=== PATIENT | male | born 1945 | race Caucasian/White ===

== ENCOUNTER 2022-12-11 20:51 | Emergency (ER) | payer OTHER ==
[~2022-12-11] VITALS: Ht 167.6 cm; Wt 58.1 kg
[2022-12-11 20:55] VITALS: BP 155/58
--- NOTE | 2022-12-11 20:55 | NUR ---
TO BED AMBULATORY
--- NOTE | 2022-12-11 21:14 | NUR ---
ASSUMED CARE HERE FR EVAL OF ABDO PAIN NO N/V/D OR CONSTIPATION, HE ALSO C/O NUMBNESS ON BOTH HANDS X1 MON
[2022-12-11 21:53] LABS: BASOPHILS % (AUTO) 0.7 % (0.0-2.0); EOSINOPHILS # (AUTO) 0.1 K/uL (0-0.4); EOSINOPHILS % (AUTO) 5.4 % (0.0-4.0); HEMATOCRIT 29.8 % (36-52); LYMPHOCYTES # (AUTO) 0.9 K/uL (2.0-11.5); LYMPHOCYTES % (AUTO) 38.7 % (20.5-51.1); MEAN CORPUSCULAR HEMOGLOBIN 34 pg (27-31); MEAN CORPUSCULAR HGB CONC 34 g/dL (33-37); MEAN CORPUSCULAR VOLUME 100.4 fL (80-94); MONOCYTES # (AUTO) 0.1 K/uL (0.8-1.0); MONOCYTES % (AUTO) 5.2 % (1.7-9.3); NEUTROPHILS # (AUTO) 1.1 K/uL (1.8-7.7); PLATELET COUNT (AUTO) 46 K/uL (140-450); RED BLOOD CELL COUNT(AUTO) 2.97 MIL/uL (4.20-6.10); RED CELL DISTRIBUTION WIDTH 18.9 % (11.6-13.7); WHITE BLOOD COUNT (AUTO) 2.3 K/uL (4.8-10.8)
[2022-12-11 22:10] LABS: PROTHROMBIN TIME 12.3 secs (10.8-13.4)
[2022-12-11 22:12] LABS: LIPASE 202 U/L (73-393)
[2022-12-11 22:17] LABS: ANION GAP 13.9 (8-16); ASPARTATE AMINOTRANSFERASE 34 U/L (15-37); CARBON DIOXIDE 21.4 mmol/L (21-32); CHLORIDE 107 mmol/L (98-107); CREATININE 1.2 mg/dL (0.6-1.3); GLUCOSE 113 mg/dL (74-106); POTASSIUM 4.3 mmol/L (3.5-5.1); SODIUM SERUM 138 mmol/L (136-145); TOTAL BILIRUBIN 1.1 mg/dL (0.0-1.0); UREA NITROGEN, BLOOD 20 mg/dL (7-18)
[2022-12-11 22:32] LABS: APPEARANCE,URINE CLEAR (CLEAR); BILIRUBIN,URINE NEGATIVE (NEGATIVE); BLOOD, URINE NEGATIVE (NEGATIVE); COLOR,URINE YELLOW (YELLOW); LEUKOCYTE ESTERASE ,URINE NEGATIVE (NEGATIVE); NITRITE, URINE NEGATIVE (NEGATIVE); UGLUCOSE NEGATIVE (NEGATIVE)
[2022-12-11] MEDS ORDERED: MORPHINE SULFATE 4 MG/ML SYR IVP ONE (23:00)
--- NOTE | 2022-12-11 23:17 | NUR ---
C/O ABDO PAIN , PAIN MEDS GHIVEN ORDERED
--- NOTE | 2022-12-11 23:49 | NUR ---
PT BACK FROM CT
--- NOTE | 2022-12-12 02:17 | NUR ---
STILL WAITING FOT CT , RESULT , PT UPDATED
--- NOTE | 2022-12-12 03:53 | NUR ---
AT THE BS TO DISCUSS CT RESULT, PT RETAINING URINE , PT WAS INFORMED HE NEEDED F/C TO DRAIN URINE. F/C PLACED WITH SOME DIFFICULTY POS ENLARGE PROSTATE, URIINE , FLOW BLOODY WITH SOME CLOTS, IRRIGATED WITH 500ML STERILE SALINE , OUT STILL BLOODY, ORDERED TO DCF/C AND REPLACE IT WITH [address] CATH FOR CBI
[2022-12-12] MEDS ORDERED: LIDOCAINE 2% 100 MG/5 ML UJET TP ONE ×2 (04:10→04:14)
--- NOTE | 2022-12-12 04:33 | NUR ---
3 WAY CATH REPLACED , MANUALLY IRRIGATED BLADDER TIL CLEAR, NO CLOTS NOTED.
[2022-12-12 05:18] VITALS: BP 134/63
--- NOTE | 2022-12-12 05:33 | NUR ---
PTS DAUGHTER AT [facility] TO DISCUSS TEST RESULTS AND ACI, F/C CARE INSTRUCTION GIVEN VERB GOOD UNDERSTANDING, F/C CONVERTED TO LEG
--- NOTE | 2022-12-12 05:40 | NUR ---
Patient discharged with v/s stable. Written and verbal after care instructions given and explained. Patient alert, oriented and verbalized understanding of instructions. Wheel Chair Assisted with to car WITH FAMILY. All questions addressed prior to discharge. ID band removed. Patient advised to follow up with PMD. Rx of given. Patient educated on indication of medication including possible reaction and side effects. Opportunity to ask questions provided and answered.
[2022-12-12] MEDS ORDERED: TAMS0.4C96 PO (15:08)
== END 2022-12-12 05:30 | disposition home or self-care (01) ==
LOC: MED 20:51
DX: R10.31 Right lower quadrant pain (principal)
CPT/HCPCS: 36415; 71045; 74177; 80053; 81003; 83690; 83880; 84484; 85025; 85610; 85730; 93005; 96374; 99285; J2270; Q0092; Q9967

== ENCOUNTER 2022-12-12 13:12 | Emergency (ER) | payer OTHER ==
[~2022-12-12] VITALS: Ht 152.4 cm; Wt 69.9 kg
[2022-12-12 14:07] VITALS: BP 142/61
--- NOTE | 2022-12-12 15:00 | NUR ---
LOYA CATHETER CHANGED AFTER BLADDER IRRIGATION.
[2022-12-12] MEDS ORDERED: TAMS0.4C96 PO (15:08)
--- NOTE | 2022-12-12 15:40 | NUR ---
PT JULIANNA RHODES C/O LOYA CATH LEAKING AND BLOODY URINE SINCE THIS AM. NAD.
--- NOTE | 2022-12-12 16:59 | NUR ---
Patient discharged with v/s stable. Written and verbal after care instructions given and explained. Patient alert, oriented and verbalized understanding of instructions. Ambulatory with steady gait. All questions addressed prior to discharge. ID band removed. Patient advised to follow up with PMD. Rx of TAMSULOSIN given. Patient educated on indication of medication including possible reaction and side effects. Opportunity to ask questions provided and answered.
[2022-12-12 17:00] VITALS: BP 138/59
== END 2022-12-12 17:00 | disposition home or self-care (01) ==
LOC: MED 13:12
DX: R31.9 Hematuria, unspecified (principal); R33.9 Retention of urine, unspecified
CPT/HCPCS: 51702; 99284

== ENCOUNTER 2022-12-25 14:49 | Emergency (ER) | payer OTHER ==
[~2022-12-25] VITALS: Ht 167.6 cm; Wt 58.1 kg
[~2022-12-25 14:49] MED LIST: TAMS0.4C96 PO
[2022-12-25 15:02] VITALS: BP 91/41
--- NOTE | 2022-12-25 15:02 | NUR ---
ASSUMED PATIENT CARE, NURSING ASSESSMENT COMPLETED.
[2022-12-25] MEDS ORDERED: [UNRECOGNIZED DRUG - CODE] TP (15:23)
--- NOTE | 2022-12-25 15:33 | NUR ---
Patient discharged with v/s stable. Written and verbal after care instructions given and explained. Patient alert, oriented and verbalized understanding of instructions. Ambulatory with steady gait. All questions addressed prior to discharge. ID band removed. Patient advised to follow up with PMD. Rx of LIDOCAINE CREAM given. Patient educated on indication of medication including possible reaction and side effects. Opportunity to ask questions provided and answered.
[2022-12-25 15:34] VITALS: BP 91/41
[2022-12-28] MEDS ORDERED: [UNRECOGNIZED DRUG - CODE] TP (17:07)
[2022-12-28] MEDS ORDERED: ACET-6951 PO (17:09)
== END 2022-12-25 15:33 | disposition home or self-care (01) ==
LOC: MED 14:49
DX: L29.9 Pruritus, unspecified (principal); R31.9 Hematuria, unspecified; E11.9 Type 2 diabetes mellitus without complications; I10 Essential (primary) hypertension; Z79.899 Other long term (current) drug therapy
CPT/HCPCS: 99283

== ENCOUNTER 2022-12-27 07:42 | Emergency (ER) | payer OTHER ==
[~2022-12-27] VITALS: Ht 167.6 cm; Wt 58.1 kg
[~2022-12-27 07:42] MED LIST changes: +[UNRECOGNIZED DRUG - CODE] TP
[2022-12-27 08:00] VITALS: BP 104/46
--- NOTE | 2022-12-27 08:40 | NUR ---
LOYA CATHETER IRRIGATED WITH 50CC NS. FLOWED WELL, NO RESISTANCE. NO IMMEDIATE URINE FLOW. MD MUNGUIA NOTIFIED. NO BLADDER DISTENTION NOTED. PER MD MUNGUIA, CHANGE LEG BAG ONLY FOR FRESH UA. PT TOLERATED WELL. GIVEN PO FLUIDS PER MD MUNGUIA TO SEE IF PATIENT MAKES URINE. VSS. NAD NOTED. WILL CONT TO MONITOR PT.
[2022-12-27 09:40] LABS: BILIRUBIN,URINE 1+ (NEGATIVE); BLOOD, URINE 3+ (NEGATIVE); LEUKOCYTE ESTERASE ,URINE 1+ (NEGATIVE); NITRITE, URINE POSITIVE (NEGATIVE); UGLUCOSE TRACE (NEGATIVE)
[2022-12-27 09:42] LABS: APPEARANCE,URINE CLOUDY (CLEAR); COLOR,URINE BLOODY (YELLOW)
[2022-12-27 09:53] LABS: RBC,URINE 20-50 /HPF (0-5)
[2022-12-27] MEDS ORDERED: ACET-6951 PO (12:17)
[2022-12-27] MEDS ORDERED: CEFP200T20 PO (12:17)
[2022-12-27 12:35] VITALS: BP 130/76
--- NOTE | 2022-12-27 12:35 | NUR ---
Patient discharged with v/s stable. Written and verbal after care instructions given and explained. Patient alert, oriented and verbalized understanding of instructions. Wheel Chair Assisted with to car. All questions addressed prior to discharge. ID band removed. Patient advised to follow up with PMD. Rx of TYLENOL #3, CEFPODOXIME given. Patient educated on indication of medication including possible reaction and side effects. Opportunity to ask questions provided and answered. LEG BAG EMPTIED, 550CC. PT INSTRUCTED TO DRAIN BAG FREQUENTLY, NO KINKS OR LOOPS IN TUBING AND TO FINISH ABX EVEN IF FEELING BETTER. PT ALSO INSTRUCTED TO DRINK MORE WATER.
[2022-12-28] MEDS ORDERED: [UNRECOGNIZED DRUG - CODE] TP (17:07)
[2022-12-28] MEDS ORDERED: ACET-6951 PO (17:09)
== END 2022-12-27 12:35 | disposition home or self-care (01) ==
LOC: MED 07:42
DX: T83.098A Other mechanical complication of other urinary catheter, initial encounter (principal); N39.0 Urinary tract infection, site not specified; E11.9 Type 2 diabetes mellitus without complications; I10 Essential (primary) hypertension; Z86.39 Personal history of other endocrine, nutritional and metabolic disease; Z79.899 Other long term (current) drug therapy; Y84.6 Urinary catheterization as the cause of abnormal reaction of the patient, or of later complication, without mention of misadventure at the time of the procedure
CPT/HCPCS: 81001; 87086; 99283; 99284

== ENCOUNTER 2022-12-31 19:07 | Inpatient (IN) | payer OTHER ==
[~2022-12-31] VITALS: Ht 167.6 cm; Wt 57.6 kg
[~2022-12-31 19:07] MED LIST changes: +ACET-6951 PO; +CEFP200T20 PO
[2022-12-31 19:48] VITALS: BP 137/70
[2022-12-31] MEDS ORDERED: NACL 0.9% 1,000 ML IV ONE (19:50)
--- NOTE | 2022-12-31 19:51 | NUR ---
PT TO BED 09 VIA W/C
[2022-12-31 20:42] LABS: BASOPHILS % (AUTO) 0.6 % (0.0-2.0); EOSINOPHILS # (AUTO) 0.1 K/uL (0-0.4); EOSINOPHILS % (AUTO) 5.8 % (0.0-4.0); HEMATOCRIT 21.7 % (36-52); HEMOGLOBIN 7.4 g/dL (12.0-18.0); LYMPHOCYTES # (AUTO) 0.7 K/uL (2.0-11.5); LYMPHOCYTES % (AUTO) 35.6 % (20.5-51.1); MEAN CORPUSCULAR HEMOGLOBIN 35 pg (27-31); MEAN CORPUSCULAR HGB CONC 34 g/dL (33-37); MEAN CORPUSCULAR VOLUME 102.6 fL (80-94); MONOCYTES # (AUTO) 0.1 K/uL (0.8-1.0); MONOCYTES % (AUTO) 5.3 % (1.7-9.3); NEUTROPHILS % (AUTO) 52.7 % (42.2-75.2); RED BLOOD CELL COUNT(AUTO) 2.12 MIL/uL (4.20-6.10); RED CELL DISTRIBUTION WIDTH 19.2 % (11.6-13.7)
[2022-12-31 20:52] LABS: PLATELET COUNT (AUTO) 50 K/uL (140-450); WHITE BLOOD COUNT (AUTO) 1.9 K/uL (4.8-10.8)
--- NOTE | 2022-12-31 21:04 | NUR ---
Patient resting in bed, a/Ox4, chest rise and fll symmetrical, no c/o pain or s/s of distress, on monitor.
[2022-12-31 21:07] LABS: ALBUMIN 2.5 g/dL (3.4-5.0); ANION GAP 10.4 (8-16); ASPARTATE AMINOTRANSFERASE 25 U/L (15-37); CARBON DIOXIDE 24.8 mmol/L (21-32); CHLORIDE 101 mmol/L (98-107); CREATININE 1.1 mg/dL (0.6-1.3); GLUCOSE 150 mg/dL (74-106); POTASSIUM 5.2 mmol/L (3.5-5.1); SODIUM SERUM 131 mmol/L (136-145); TOTAL BILIRUBIN 0.4 mg/dL (0.0-1.0); UREA NITROGEN, BLOOD 15 mg/dL (7-18)
--- NOTE | 2022-12-31 22:15 | NUR ---
Blood transfusion 1 unit started. Patient tolerating transfusion well, no c/o pain or s/s of distress or abverse reaction.
--- NOTE | 2022-12-31 22:30 | NUR ---
Patient tolerating transfusion well, no c/o pain or s/s of distress or abverse reaction.
--- NOTE | 2022-12-31 23:00 | NUR ---
Patient resting in bed, a/Ox4, chest rise and fll symmetrical, no c/o pain or s/s of distress, on monitor.
[2022-12-31] MEDS ORDERED: ONDANSETRON 4 MG/2 ML VIAL IM/IVP PRN (23:35)
[2022-12-31] MEDS ORDERED: POTASSIUM CHLORIDE 10 MEQ TABER PO PRN (23:35)
[2022-12-31] MEDS ORDERED: ACETAMINOPHEN 325 MG TAB PO PRN (23:35)
[2022-12-31] MEDS ORDERED: ZOLPIDEM 5 MG TAB PO PRN (23:35)
[2022-12-31] MEDS ORDERED: DOCUSATE SODIUM 100 MG GELCAP PO PRN (23:35)
[2022-12-31] MEDS ORDERED: HYDROcodone/APAP 7.5/325 MG 1 TAB PO PRN (23:35)
[2022-12-31] MEDS ORDERED: guaiFENesin DM 200/20 MG-10 ML 10 ML UDC PO PRN (23:35)
--- NOTE | 2022-12-31 23:43 | NUR ---
Urine emptied from catheter bag, red/clear, 550 mL.
[2023-01-01 00:07] LABS: PROTHROMBIN TIME 10.9 secs (10.8-13.4)
[2023-01-01 00:33] LABS: CHOL/HDL RATIO 3.6 (1-4.5); FREE T4 (FREE THYROXINE) 1.02 ng/dL (0.76-1.46); MAGNESIUM 2.5 mg/dL (1.8-2.4); PHOSPHORUS 3.1 mg/dL (2.5-4.9); THYROID STIMULATING HORMONE 16.47 uIU/mL (0.34-3.74)
--- NOTE | 2023-01-01 01:05 | NUR ---
Blood transfusion completed. Patient tolerated transfusion well, no c/o pain or s/s of distress.
[2023-01-01] MEDS: NACL 0.9% 1,000 ML IV SCH ×2 (01:06→10:23)
--- NOTE | 2023-01-01 01:09 | NUR ---
Patient resting in bed, a/Ox4, chest rise and fll symmetrical, no c/o pain or s/s of distress, on monitor.
[2023-01-01 01:14] LABS: BILIRUBIN,URINE NEGATIVE (NEGATIVE); BLOOD, URINE 3+ (NEGATIVE); LEUKOCYTE ESTERASE ,URINE 1+ (NEGATIVE); NITRITE, URINE NEGATIVE (NEGATIVE); PH,URINE >=9.0 (5.0-9.0); UGLUCOSE NEGATIVE (NEGATIVE)
[2023-01-01 01:27] LABS: APPEARANCE,URINE CLOUDY (CLEAR)
[2023-01-01 01:28] LABS: COLOR,URINE ORANGE (YELLOW); RBC,URINE >100 /HPF (0-5)
--- NOTE | 2023-01-01 02:18 | NUR ---
Patient will be admitted to care of Dr. Delbert Manzano. Admited to Telemetry. Will go to room 115. Belongings list completed. Report to Rose Marie AVILEZ.
--- NOTE | 2023-01-01 02:45 | NUR ---
ADMITTED PATIENT FROM ER VIA [place] AWAKE ALERT ORIENTED. ON ROOM AIR WITH THE CHIEF COMPLAINTS OF HEMATURIA WITH LOYA CATHETER IN PLACE, INCREASED GENERALIZED WEAKNESS. NO SOB NOTED. NO COMPLAINTS OF PAIN AT THIS TIME. CALL LIGHT ON EASY REACH. MRSA SCREENING DONE. ALL SAFETY PRECAUTIONS ARE IN PLACE. NOTED SCABBED AND REDNESS TO LEFT AND RIGHT LOWER LEG. PATIENT STATED ITS BEEN A YEAR. NO OPEN WOUND. IVF NS INFUSING AT 60 ML/HR TO LEFT FOREARM. LOYA CATHETER IN PLACE CONNECTED TO HIS LEFT FOOT DRAINING PINKISH URINE.
[2023-01-01 04:00] VITALS: BP 123/49
--- NOTE | 2023-01-01 04:48 | NUR ---
PATIENT COMPLAINED OF BILATERAL HANDS MILD PAIN, MEDICATED.
[2023-01-01 06:44] LABS: CARBON DIOXIDE 21.9 mmol/L (21-32); CHLORIDE 106 mmol/L (98-107); GLUCOSE 92 mg/dL (74-106); POTASSIUM 4.9 mmol/L (3.5-5.1); SODIUM SERUM 135 mmol/L (136-145); UREA NITROGEN, BLOOD 11 mg/dL (7-18)
[2023-01-01 07:18] LABS: BASOPHILS % (AUTO) 0.6 % (0.0-2.0); EOSINOPHILS # (AUTO) 0.1 K/uL (0-0.4); EOSINOPHILS % (AUTO) 7.4 % (0.0-4.0); HEMATOCRIT 23.6 % (36-52); HEMOGLOBIN 8.2 g/dL (12.0-18.0); LYMPHOCYTES # (AUTO) 0.6 K/uL (2.0-11.5); MEAN CORPUSCULAR HEMOGLOBIN 34 pg (27-31); MEAN CORPUSCULAR HGB CONC 35 g/dL (33-37); MEAN CORPUSCULAR VOLUME 98.3 fL (80-94); MONOCYTES # (AUTO) 0.1 K/uL (0.8-1.0); MONOCYTES % (AUTO) 6.1 % (1.7-9.3); NEUTROPHILS # (AUTO) 0.9 K/uL (1.8-7.7); NEUTROPHILS % (AUTO) 50.9 % (42.2-75.2); PLATELET COUNT (AUTO) 44 K/uL (140-450); RED CELL DISTRIBUTION WIDTH 20.2 % (11.6-13.7)
[2023-01-01 07:25] LABS: WHITE BLOOD COUNT (AUTO) 1.8 K/uL (4.8-10.8)
--- NOTE | 2023-01-01 07:25 | NUR ---
GAVE BEDSIDE REPORT TO FATMATA WARREN FOR CONTINUITY OF CARE. PATIENT IN STABLE CONDITION.
--- NOTE | 2023-01-01 07:26 | NUR ---
RECEIVED BEDSIDE REPORT FROM NIGHTSHIFT NURSE. PT IS RESTING IN BED, NO SIGNS OF DISTRESS, NO REPORTS OF PAIN OR DISCOMFORT. REORIENTED PT TO CALL LIGHT, WILL CONTINUE WITH CARE.
[2023-01-01 08:00] VITALS: BP 118/58
[2023-01-01] MEDS: PANTOPRAZOLE 40 MG TABEC PO SCH (09:00)
[2023-01-01 12:00] VITALS: BP 108/51
[2023-01-01 16:00] VITALS: BP 112/55
--- NOTE | 2023-01-01 19:36 | NUR ---
ENDORSED TO NIGHTSHIFT NURSE FOR CONTINUITY OF CARE. PT RESTING IN BED, NO SIGNS OF DISTRESS, NO REPORTS OF PAIN OR DISCOMFORT.
--- NOTE | 2023-01-01 19:37 | NUR ---
RECEIVED PT FROM MORNING SHIFT NURSE. PT IS AOX4, AMBULATORY WITH ASSIST, BAHRAINI SPEAKING, ABLE TO VERBALIZE NEEDS AND ABLE TO FOLLOW COMMANDS. PT IS ON ROOM AIR AND ON REGULAR DIET. PT HAS LOYA CATHETER AND BEDSIDE COMMODE. PT HAS LEFT FOREARM GAUGE 20, RUNNING WITH NS AT 60ML/HR. PT HAS SCABS AND REDNESS ON BILATERAL LOWER EXTREMITIES. NO S/S OF OF RESPIRATORY DISTRESS NOTED. NO COMPLAIN OF PAIN AT THIS TIME. ALL SAFETY MEASURES IMPLEMENTED. BED IN LOW POSITION, BED WHEELS ON LOCK AND CALL LIGHT WITHIN REACH.
[2023-01-01 20:00] VITALS: BP 118/56
--- NOTE | 2023-01-01 22:00 | NUR ---
ASSISTED PT TO HIS BEDSIDE COMMODE. NO COMPLAIN OF PAIN AT THIS TIME. NO S/S OF RESPIRATORY DISTRESS. ALL SAFETY MEASURES IMPLEMENTED. BED IN LOW POSITION, BED WHEELS ON LOCK AND CALL LIGHT WITHIN REACH.
--- NOTE | 2023-01-01 23:52 | NUR ---
NOTIFIED DR. CHRISTIANSON THAT PT WANTS TO HAVE ACCUCHECK DUE TO HISTORY OF DM. DR. CHRISTIANSON ORDER. ACCUCHECK BID. ORDER WAS MADE AND CARRIED OUT.
[2023-01-02] VITALS: BP 124/61
--- NOTE | 2023-01-02 02:00 | NUR ---
PT IS SLEEPING. CHEST RISE AND FALL SYMMETRICALLY NOTED. RESPIRATION IS EVEN AND UNLABORED. ALL SAFETY MEASURES IMPLEMENTED. BED IN LOW POSITION, BED WHEELS ON LOCK AND CALL LIGHT WITHIN REACH.
[2023-01-02 04:00] VITALS: BP 121/57
--- NOTE | 2023-01-02 04:00 | NUR ---
MORNING CARE WAS DONE TO PT. CHANGED CHUCKS, LINENS, BLANKET AND GOWN. ALL SAFETY MEASURES IMPLEMENTED. BED IN LOW POSITION, BED WHEELS ON LOCK AND CALL LIGHT WITHIN REACH.
[2023-01-02] MEDS ORDERED: INSULIN LISPRO SLIDING SCALE 100 UNITS/ML VIAL SUBQ PRN (05:50)
--- NOTE | 2023-01-02 06:14 | NUR ---
NOTIFIED DR. CHRISTIANSON REGARDING PT'S BLOOD GLUCOSE OF 67. ORANGE JUICE WAS GIVEN TO PT. DR. CHRISTIANSON REPLY TO ENCOURAGE PT IN TAKE.
--- NOTE | 2023-01-02 06:43 | NUR ---
PT LATEST BLOOD GLUCOSE IS 107
[2023-01-02 06:55] LABS: BASOPHILS % (AUTO) 0.4 % (0.0-2.0); EOSINOPHILS # (AUTO) 0.1 K/uL (0-0.4); EOSINOPHILS % (AUTO) 6.4 % (0.0-4.0); HEMATOCRIT 24.2 % (36-52); HEMOGLOBIN 8.3 g/dL (12.0-18.0); LYMPHOCYTES # (AUTO) 0.6 K/uL (2.0-11.5); LYMPHOCYTES % (AUTO) 37.5 % (20.5-51.1); MEAN CORPUSCULAR HEMOGLOBIN 34 pg (27-31); MEAN CORPUSCULAR HGB CONC 34 g/dL (33-37); MEAN CORPUSCULAR VOLUME 98.8 fL (80-94); MONOCYTES # (AUTO) 0.1 K/uL (0.8-1.0); MONOCYTES % (AUTO) 5.9 % (1.7-9.3); NEUTROPHILS # (AUTO) 0.8 K/uL (1.8-7.7); NEUTROPHILS % (AUTO) 49.8 % (42.2-75.2); PLATELET COUNT (AUTO) 45 K/uL (140-450); RED BLOOD CELL COUNT(AUTO) 2.45 MIL/uL (4.20-6.10); RED CELL DISTRIBUTION WIDTH 20.1 % (11.6-13.7)
[2023-01-02 06:57] LABS: ANION GAP 11.2 (8-16); CARBON DIOXIDE 21.2 mmol/L (21-32); CHLORIDE 109 mmol/L (98-107); CREATININE 0.9 mg/dL (0.6-1.3); GLUCOSE 66 mg/dL (74-106); POTASSIUM 4.4 mmol/L (3.5-5.1); SODIUM SERUM 137 mmol/L (136-145); UREA NITROGEN, BLOOD 11 mg/dL (7-18)
--- NOTE | 2023-01-02 07:15 | NUR ---
RECEIVED BEDSIDE REPORT FROM NIGHTSHIFT NURSE. PT ASLEEP IN BED, WOKE TO NAME AND TOUCH. NO SIGNS OF DISTRESS, NO REPORTS OF PAIN OR DISCOMFORT. REORIENTED PT TO CALL LIGHT. NO FURTHER NEEDS ARE TO BE MET AT THIS TIME, WILL CONTINUE WITH CARE.
--- NOTE | 2023-01-02 07:28 | NUR ---
PT IS STABLE. ENDORSED PT TO MORNING SHIFT NURSE FOR CONTINUITY OF CARE.
[2023-01-02] MEDS ORDERED: BLOOD GLUCOSE MONITORING 1 DEV DEV FS SCH (07:30)
[2023-01-02 08:00] VITALS: BP 118/57
[2023-01-02] MEDS ORDERED: TAMSULOSIN 0.4 MG CAP PO SCH (08:30)
[2023-01-02] MEDS ORDERED: CEPH-588 PO (08:37)
[2023-01-02] MEDS ORDERED: FINASTERIDE 5 MG TAB PO SCH (09:00)
--- NOTE | 2023-01-02 09:21 | NUR ---
PATIENT HAS BEEN SCREENED AND CATEGORIZED LOW NUTRITION RISK. PATIENT WILL BE SEEN WITHIN 7 DAYS OF ADMISSION. 01/07/[address]
[2023-01-02] MEDS: NACL 0.9% 1,000 ML IV SCH (09:29)
[2023-01-02 09:39] LABS: WHITE BLOOD COUNT (AUTO) 1.7 K/uL (4.8-10.8)
[2023-01-02 11:00] VITALS: BP 118/57
--- NOTE | 2023-01-02 13:15 | NUR ---
PT INFORMED OF DISCHARGE. PT VERBALIZE UNDERSTANDING, DISCHARGE PAPERWORK SIGNED. IV REMOVED, ID BAND REMOVED. PT LEFT UNIT VIA WHEELCHAIR. NO SIGNS OF DISTRESS, PT STABLE UPON LEAVING. PT TAKEN HOME BY DAUGHTER.
== END 2023-01-02 13:10 | disposition home or self-care (01) | DRG 725 ==
LOC: MED 19:07 → MTU 22:28
PROVIDERS: ADMIT Family Medicine; ATTEND Family Medicine
PROC: 30233N1 Transfusion of Nonautologous Red Blood Cells into Peripheral Vein, Percutaneous Approach (ICD-10-PCS; principal; 2022-12-31)
DX: N40.1 Benign prostatic hyperplasia with lower urinary tract symptoms (principal); E43 Unspecified severe protein-calorie malnutrition; N39.0 Urinary tract infection, site not specified; R33.8 Other retention of urine; D64.9 Anemia, unspecified; D72.819 Decreased white blood cell count, unspecified; Z20.822 Contact with and (suspected) exposure to COVID-19; E11.9 Type 2 diabetes mellitus without complications; I10 Essential (primary) hypertension; R31.9 Hematuria, unspecified; Z68.20 Body mass index [BMI] 20.0-20.9, adult
CPT/HCPCS: 36415; 36430; 80048; 80053; 81001; 82150; 82550; 82553; 82948; 83036; 83605; 83690; 83735; 83880; 84100; 84436; 84439; 84443; 84479; 84484; 85025; 85610; 85730; 86886; 86900; 86901; 86920; 87040; 87086; 93005; 96360; 99285; P9016

== ENCOUNTER 2023-01-08 02:17 | Emergency (ER) | payer OTHER ==
[~2023-01-08] VITALS: Ht 167.6 cm; Wt 58.1 kg
[~2023-01-08 02:17] MED LIST changes: +CEPH-588 PO
[2023-01-08 02:45] VITALS: BP 131/57
--- NOTE | 2023-01-08 02:52 | NUR ---
BIB W/C FOR C/O URINARY CATHETER LEAKING X 4 DAYS
--- NOTE | 2023-01-08 02:52 | NUR ---
TO BED 11 FOLLOWING TRIAGE
--- NOTE | 2023-01-08 02:52 | NUR ---
PT TO BED 11
[2023-01-08 03:27] VITALS: BP 131/57
--- NOTE | 2023-01-08 03:27 | NUR ---
Patient discharged with v/s stable. Written and verbal after care instructions given and explained. Patient verbalized understanding. Wheel Chair Assisted with by caregiver. All questions addressed prior to discharge. Advised to follow up with PMD.
[2023-01-08] MEDS ORDERED: MIRABULK PO (03:28)
== END 2023-01-08 03:27 | disposition home or self-care (01) ==
LOC: MED 02:17
DX: T83.031A Leakage of indwelling urethral catheter, initial encounter (principal); N48.89 Other specified disorders of penis; E11.9 Type 2 diabetes mellitus without complications; I10 Essential (primary) hypertension; E07.9 Disorder of thyroid, unspecified; Z79.899 Other long term (current) drug therapy; Y84.6 Urinary catheterization as the cause of abnormal reaction of the patient, or of later complication, without mention of misadventure at the time of the procedure; Y92.9 Unspecified place or not applicable
CPT/HCPCS: 99281

== ENCOUNTER 2023-02-05 13:17 | Emergency (ER) | payer OTHER ==
[~2023-02-05] VITALS: Ht 162.6 cm; Wt 54.4 kg
[~2023-02-05 13:17] MED LIST changes: +CARV3.12 PO; -CEPH-588 PO; +FERR324T11 PO; +FINA5TAB1 PO; +GABA300C PO; +LEVO50CA2 PO; +LISI5TAB18 PO; +MIRABULK PO; +SITA100T8 PO
[2023-02-05 13:36] VITALS: BP 90/51; PULSE 80; RESP 18; TEMP 97.8; O2SAT 98
[2023-02-05] MEDS ORDERED: DOCU1TAB73 PO (17:16)
[2023-02-05] MEDS ORDERED: ONDA-188 PO (17:16)
[2023-02-05] MEDS ORDERED: GLYPS RC (17:16)
[2023-02-05] MEDS ORDERED: NA P135N RC (17:16)
[2023-02-05] MEDS ORDERED: MAGN296S70 PO (17:16)
== END 2023-02-05 17:50 | disposition home or self-care (01) ==
LOC: MED 13:17
DX: K59.00 Constipation, unspecified (principal); K80.20 Calculus of gallbladder without cholecystitis without obstruction; N40.0 Benign prostatic hyperplasia without lower urinary tract symptoms; E11.9 Type 2 diabetes mellitus without complications; I10 Essential (primary) hypertension; E07.9 Disorder of thyroid, unspecified; Z79.899 Other long term (current) drug therapy
CPT/HCPCS: 74021; 99284

== ENCOUNTER 2023-02-06 18:49 | Inpatient (IN) | payer OTHER ==
[~2023-02-06] VITALS: Ht 167.6 cm; Wt 54.4 kg
[~2023-02-06 18:49] MED LIST changes: +DOCU1TAB73 PO; +GLYPS RC; +MAGN296S70 PO; +NA P135N RC; +ONDA-188 PO
[2023-02-06] MEDS ORDERED: NACL 0.9% 1,000 ML IV SCH ×2 (18:55→22:25)
[2023-02-06] MEDS ORDERED: cefTRIAXone 1,000 MG in DEXT 5% MINI-BAG PLUS 50 ML IV ONE (18:55)
--- NOTE | 2023-02-06 18:55 | NUR ---
CT AT THE BEDSIDE
--- NOTE | 2023-02-06 18:55 | NUR ---
X RAY AT THE BEDSIDE
[2023-02-06 19:03] VITALS: BP 146/82; PULSE 89; RESP 16; TEMP 98.9; O2SAT 98
--- NOTE | 2023-02-06 19:15 | NUR ---
PT TO BED
[2023-02-06 20:02] LABS: ALBUMIN 2.7 g/dL (3.4-5.0); ANION GAP 15.4 (8-16); ASPARTATE AMINOTRANSFERASE 39 U/L (15-37); CARBON DIOXIDE 18.8 mmol/L (21-32); CHLORIDE 104 mmol/L (98-107); CREATININE 1.2 mg/dL (0.6-1.3); GLUCOSE 87 mg/dL (74-106); POTASSIUM 5.2 mmol/L (3.5-5.1); SODIUM SERUM 133 mmol/L (136-145); TOTAL BILIRUBIN 0.8 mg/dL (0.0-1.0); UREA NITROGEN, BLOOD 26 mg/dL (7-18)
--- NOTE | 2023-02-06 20:07 | NUR ---
COVID AND FLU SWABS COLLECTED
[2023-02-06] MEDS ORDERED: cefTRIAXone 1,000 MG VIAL ONE (20:23)
[2023-02-06 21:19] LABS: BASOPHILS % (AUTO) 0.6 % (0.0-2.0); EOSINOPHILS # (AUTO) 0.1 K/uL (0-0.4); EOSINOPHILS % (AUTO) 4.6 % (0.0-4.0); HEMATOCRIT 24.7 % (36-52); HEMOGLOBIN 8.5 g/dL (12.0-18.0); LYMPHOCYTES # (AUTO) 0.6 K/uL (2.0-11.5); LYMPHOCYTES % (AUTO) 35.3 % (20.5-51.1); MEAN CORPUSCULAR HEMOGLOBIN 32 pg (27-31); MEAN CORPUSCULAR HGB CONC 35 g/dL (33-37); MEAN CORPUSCULAR VOLUME 91.8 fL (80-94); MONOCYTES # (AUTO) 0.1 K/uL (0.8-1.0); MONOCYTES % (AUTO) 4.5 % (1.7-9.3); PLATELET COUNT (AUTO) 72 K/uL (140-450); RED BLOOD CELL COUNT(AUTO) 2.69 MIL/uL (4.20-6.10); RED CELL DISTRIBUTION WIDTH 29.5 % (11.6-13.7)
[2023-02-06 21:21] LABS: WHITE BLOOD COUNT (AUTO) 1.8 K/uL (4.8-10.8)
--- NOTE | 2023-02-06 21:26 | NUR ---
Phoenix arteaga in ED - 02/06/23 at 2147 by [email or web address] AMBROSE ASSEMBLY MACHINE OFFBEARER FROM PT ENSURANCE CALLED AND ITFORMATION WAS PROVIDED.
[2023-02-06 21:30] LABS: APPEARANCE,URINE CLEAR (CLEAR); BILIRUBIN,URINE NEGATIVE (NEGATIVE); BLOOD, URINE 3+ (NEGATIVE); COLOR,URINE YELLOW (YELLOW); LEUKOCYTE ESTERASE ,URINE 1+ (NEGATIVE); NITRITE, URINE NEGATIVE (NEGATIVE); PH,URINE 8.5 (5.0-9.0); UGLUCOSE NEGATIVE (NEGATIVE)
[2023-02-06 21:50] LABS: RBC,URINE 20-50 /HPF (0-5)
[2023-02-06 21:54] LABS: TRIPLE PHOSPHATE CRYSTAL,UR 0-10 /HPF (None Seen)
--- NOTE | 2023-02-06 22:00 | NUR ---
PT'SON CALLED FOR THE UPDATE. NURSE TOLD THAT IS ONLY PEOPLE WHO IS LISTED
[2023-02-06] MEDS ORDERED: HYDROcodone/APAP 5/325 MG 1 TAB TAB PO PRN (22:25)
[2023-02-06] MEDS ORDERED: ACETAMINOPHEN 325 MG TAB PO PRN (22:25)
[2023-02-06] MEDS ORDERED: ONDANSETRON 4 MG/2 ML VIAL IVP PRN (22:25)
[2023-02-06] MEDS ORDERED: MORPHINE SULFATE 2 MG/ML SYR IVP PRN (22:25)
[2023-02-06 23:35] VITALS: BP 140/66; PULSE 80; PULSE 81; PULSE 83; RESP 18; TEMP 98.7; O2SAT 99
[2023-02-06 23:35] LABS: PROTHROMBIN TIME 11.2 secs (10.8-13.4)
--- NOTE | 2023-02-06 23:45 | NUR ---
Patient will be admitted to care of [facility]. Admited to telemetry . Will go to room 123 B. Belongings list completed. Report to [employer].
[2023-02-07] VITALS: PULSE 75
--- NOTE | 2023-02-07 | NUR ---
Admitted from ER, with chief complaint of INCREASED CONFUSION , 77 y/o ,Male, Restless and confused, pt on room air, breathing even and unlabored . no s/sx of respiratory distress. oriented to call light, bed, phone,television, bathroom, smoking policy, visiting hours, procedures, ID bracelet on. Belongings list checked.all precautions in place. call light within reach. will continue to monitor
[2023-02-07] MEDS ORDERED: INSULIN LISPRO SLIDING SCALE 100 UNITS/ML VIAL SUBQ PRN (00:10)
[2023-02-07] MEDS ORDERED: DEXTROSE 50% 50 ML SYR IVP PRN ×2 (00:10→07:05)
[2023-02-07 04:00] VITALS: BP 127/58; PULSE 73; PULSE 80; RESP 18; TEMP 97.5; O2SAT 98
--- NOTE | 2023-02-07 06:31 | NUR ---
PT IS STABLE. NO ACUTE EVENTS THROUGHOUT THE NIGHT. ALL NEEDS MET. NO S/SX OF DISTRESS AT THE MOMENT. ALL PRECAUTIONS IN PLACE. CALL LIGHT WITHIN REACH. WILL ENDORSE TO MORNING SHIFT NURSE.
[2023-02-07 06:56] LABS: ALBUMIN 2.6 g/dL (3.4-5.0); ANION GAP 17.1 (8-16); ASPARTATE AMINOTRANSFERASE 34 U/L (15-37); CARBON DIOXIDE 15.7 mmol/L (21-32); CHLORIDE 106 mmol/L (98-107); CREATININE 1.1 mg/dL (0.6-1.3); GLUCOSE 99 mg/dL (74-106); POTASSIUM 4.8 mmol/L (3.5-5.1); SODIUM SERUM 134 mmol/L (136-145); TOTAL BILIRUBIN 0.7 mg/dL (0.0-1.0); UREA NITROGEN, BLOOD 26 mg/dL (7-18)
--- NOTE | 2023-02-07 07:00 | NUR ---
RECEIVED REPORT FROM AUTOMOBILE BUMPER STRAIGHTENER FOR CONTINUITY OF CARE. AWAKE, WITH CONFUSION. RESP. EVEN AND UNLABORED. REMAINS NPO. IVF INTACT. NO S/S OF ANY PAIN OR DISCOMFORT. CALL LIGHT KEPT WITHIN REACH. CALL LIGHT KEPT WITHIN REACH. WILL CONTINUE TO MONITOR.
[2023-02-07] MEDS ORDERED: ONDANSETRON 4 MG/2 ML VIAL IVP PRN (07:05)
[2023-02-07] MEDS ORDERED: MECLIZINE 25 MG TAB PO PRN (07:05)
[2023-02-07] MEDS ORDERED: HYDROcodone/APAP 7.5/325 MG 1 TAB PO PRN (07:05)
[2023-02-07 07:24] LABS: BASOPHILS % (AUTO) 0.5 % (0.0-2.0); EOSINOPHILS % (AUTO) 1.9 % (0.0-4.0); HEMATOCRIT 24.5 % (36-52); HEMOGLOBIN 8.5 g/dL (12.0-18.0); LYMPHOCYTES # (AUTO) 0.6 K/uL (2.0-11.5); LYMPHOCYTES % (AUTO) 28.4 % (20.5-51.1); MEAN CORPUSCULAR HEMOGLOBIN 32 pg (27-31); MEAN CORPUSCULAR HGB CONC 35 g/dL (33-37); MONOCYTES # (AUTO) 0.1 K/uL (0.8-1.0); MONOCYTES % (AUTO) 4.6 % (1.7-9.3); NEUTROPHILS # (AUTO) 1.4 K/uL (1.8-7.7); NEUTROPHILS % (AUTO) 64.6 % (42.2-75.2); PLATELET COUNT (AUTO) 53 K/uL (140-450); RED BLOOD CELL COUNT(AUTO) 2.66 MIL/uL (4.20-6.10); RED CELL DISTRIBUTION WIDTH 28.8 % (11.6-13.7); WHITE BLOOD COUNT (AUTO) 2.1 K/uL (4.8-10.8)
[2023-02-07] MEDS ORDERED: BLOOD GLUCOSE MONITORING 1 DEV DEV FS SCH (07:30)
[2023-02-07] MEDS: BLOOD GLUCOSE MONITORING 1 DEV DEV FS SCH ×4 (07:30→21:51)
[2023-02-07 08:00] VITALS: BP 137/73; PULSE 77; PULSE 81; PULSE 85; RESP 18; RESP 20; TEMP 97.4; O2SAT 100; O2SAT 98
[2023-02-07 08:01] LABS: CHOL/HDL RATIO 2.9 (1-4.5); MAGNESIUM 3.1 mg/dL (1.8-2.4); PHOSPHORUS 2.6 mg/dL (2.5-4.9); THYROID STIMULATING HORMONE 33.8 uIU/mL (0.34-3.74)
[2023-02-07] MEDS: carvediloL 3.125 MG TAB PO SCH ×2 (09:00→21:50)
[2023-02-07] MEDS: FINASTERIDE 5 MG TAB PO SCH (09:00)
[2023-02-07] MEDS: GABAPENTIN 300 MG CAP PO SCH ×2 (09:00→21:50)
[2023-02-07] MEDS: lisinopriL 5 MG TAB PO SCH (09:00)
[2023-02-07] MEDS: DOCUSATE SODIUM 100 MG GELCAP PO SCH ×2 (09:00→21:51)
[2023-02-07] MEDS: TAMSULOSIN 0.4 MG CAP PO SCH (09:00)
[2023-02-07] MEDS: FERROUS GLUCONATE 324 MG TAB PO SCH (09:00)
[2023-02-07] MEDS: NACL 0.9% 1,000 ML IV SCH ×2 (09:33→22:06)
--- NOTE | 2023-02-07 09:33 | NUR ---
PT REFUSED SCHEDULED MEDICATIONS AND PHYSICAL THERAPY. EXPLAINED RISK AND BENEFITS BUT STILL REFUSED. NOTED INCREASED CONFUSION. HEPARIN SQ NOT GIVEN, D/T LOW PLATELET.
--- NOTE | 2023-02-07 10:26 | NUR ---
PATIENT HAS BEEN SCREENED AND CATEGORIZED HIGH NUTRITION RISK. PATIENT WILL BE SEEN WITHIN 1-2 DAYS OF ADMISSION. 02/06/23-02/08/[address]
[2023-02-07] MEDS: PANTOPRAZOLE 40 MG INJ VIAL IVP SCH (11:16)
[2023-02-07 12:00] VITALS: BP 136/66; PULSE 70; PULSE 76; RESP 18; TEMP 98.6; O2SAT 98
[2023-02-07] MEDS ORDERED: LACTULOSE 20 GM/30 ML UDC PO SCH (13:00)
--- NOTE | 2023-02-07 14:45 | NUR ---
WOUND CARE EVALUATION NOTES: REASON FOR EVALUATION: BILATERAL LOWER EXTREMITY SCABS WOUND ASSESSMENT COMPLETED ON THIS 77 Y/O MALE ADMITTED TO [facility] UNIT FOR ALOC, UTI. PATIENT IS FROM HOME. PAST MEDICAL HISTORY INCLUDES HTN, IRON DEF ANEMIA, BPH, NEUROPATHY, DM, HYPOTHYROID, DEMENTIA. ALL ABOVE INFORMATION WAS OBTAINED FROM THE ADMISSION H&P. AAOX1, CONFUSED. HAS GENERALIZED WEAKNESS. ORAL MUCOSAL MEMBRANES DRY. REQUIRES ASSISTANCE WITH TURNING, ON BEDREST. REQUIRES ASSISTANCE WITH TURNING. PLAN OF CARE AND PRESSURE PREVENTATIVE MEASURES DISCUSSED WITH PATIENT AND PRIMARY RN. PATIENT UNABLE TO COMPREHEND, CONFUSED. PATIENT ADMITTED WITH MULTIPLE DRY SCABS ON BILATERAL LOWER EXTREMITIES. COMORBIDITIES RELATED TO FURTHER SKIN BREAKDOWN SUCH IMPAIRED MOBILITY, S/S OF DEHYDRATION, AND HX OF DM. INTEGUMENTARY: - BILATERAL LOWER EXTREMITY MULTIPLE CLOSED SCABS AND DRY, FLAKY SKIN. RECOMMENDATIONS: - BILATERAL LOWER EXTREMITY MULTIPLE CLOSED SCABS AND DRY, FLAKY SKIN: APPLY HYDRAGAURD CREAM THROUGHOUT BILATERAL LOWER EXTREMITIES BID. - OFFLOAD BILATERAL HEELS BY PLACING BILATERAL HEEL PROTECTORS. - TURN AND REPOSITION PATIENT Q2H TO LEFT AND RIGHT SIDE TO OFFLOAD SACRALCOCCYX. - ASSESS AND MONITOR SKIN CONDITION DURING POSITION CHANGE. PLEASE PAY ATTENTION TO SACRALCOCCYX AND HEELS. - KEEP SKIN DRY AND CLEAN AT ALL TIMES. - RD CONSULT RECOMMENDATIONS DISCUSSED WITH PRIMARY RN. WILL FOLLOW-UP PATIENT Q7-10 DAYS AND PRN. PLEASE CONTACT WOUND CARE NURSE FOR ANY CONCERNS AND CHANGES IN WOUND CONDITION.
--- NOTE | 2023-02-07 14:52 | NUR ---
02/07/23 RD INITIAL ASSESSMENT COMPLETED. PLEASE REFER TO NUTRITION ASSESSMENT UNDER CARE ACTIVITY FOR ESTIMATED NUTRITIONAL NEEDS. 1. WHEN/IF MEDICALLY APPROPRIATE, RECOMMEND CLEAR LIQUID DIET WITH ENSURE CLEAR BID, GRADUALLY ADVANCING TO REGULAR DIET WITH REGULAR ENSURE BID TO OPTIMIZE NUTRITIONAL NEEDS PT TOLERATES. 2. MONITOR NPO STATUS 3. RD TO FOLLOW-UP 2-3 DAYS, HIGH RISK JAYDEN CALLES RD
--- NOTE | 2023-02-07 15:35 | NUR ---
LACTULOSE PO GIVEN. TOLERATED WELL. FAMILY AT BEDSIDE. ALL QUESTIONS ANSWERED.
[2023-02-07 16:00] VITALS: BP 129/58; PULSE 75; PULSE 96; RESP 18; TEMP 98.3; O2SAT 98
--- NOTE | 2023-02-07 17:24 | NUR ---
BS CHECKED 85. NO COVERAGE NEEDED.
--- NOTE | 2023-02-07 19:25 | NUR ---
BEDSIDE REPORT GIVEN TO PHI FOR CONTINUITY OF CARE. REMAINS STABLE.
--- NOTE | 2023-02-07 19:27 | NUR ---
PATIENT IS BED WELL RESTED, CONFUSED. NO ACUTE DISTRESS. ON ROOM AIR. RESPIRATION EVEN UNLABORED. FLACC 0. IVF NS INFUSING ORDERED. SAFETY MEASURES ARE IN PLACE. CALL LIGHT IN REACH. NEUTROPENIC PRECAUTION OBSERVED. WILL CONTINUE TO MONITOR.
[2023-02-07 20:00] VITALS: BP 122/61; PULSE 57; PULSE 80; RESP 18; TEMP 97.7; O2SAT 98
--- NOTE | 2023-02-07 21:50 | NUR ---
ALL SCHEDULED MEDICATIONS DUE ADMINISTERED ORDERED.
[2023-02-07] MEDS: LACTULOSE 20 GM/30 ML UDC PO SCH (21:59)
[2023-02-08] VITALS: BP 135/65; PULSE 63; PULSE 65; RESP 18; TEMP 97.7; O2SAT 99
[2023-02-08] MEDS ORDERED: HYDRAGUARD CREAM TP SCH (01:00)
[2023-02-08] MEDS: NACL 0.9% 1,000 ML IV SCH (03:05)
[2023-02-08 04:00] VITALS: BP 154/76; PULSE 72; PULSE 77; RESP 19; TEMP 98.4; O2SAT 97
[2023-02-08 05:10] LABS: BASOPHILS % (AUTO) 0.8 % (0.0-2.0); EOSINOPHILS # (AUTO) 0.1 K/uL (0-0.4); EOSINOPHILS % (AUTO) 3.6 % (0.0-4.0); HEMATOCRIT 24.9 % (36-52); HEMOGLOBIN 8.6 g/dL (12.0-18.0); LYMPHOCYTES # (AUTO) 0.8 K/uL (2.0-11.5); LYMPHOCYTES % (AUTO) 27.4 % (20.5-51.1); MEAN CORPUSCULAR HEMOGLOBIN 32 pg (27-31); MEAN CORPUSCULAR HGB CONC 35 g/dL (33-37); MEAN CORPUSCULAR VOLUME 91.5 fL (80-94); MONOCYTES # (AUTO) 0.2 K/uL (0.8-1.0); MONOCYTES % (AUTO) 6.7 % (1.7-9.3); NEUTROPHILS # (AUTO) 1.7 K/uL (1.8-7.7); NEUTROPHILS % (AUTO) 61.5 % (42.2-75.2); PLATELET COUNT (AUTO) 61 K/uL (140-450); RED BLOOD CELL COUNT(AUTO) 2.72 MIL/uL (4.20-6.10); RED CELL DISTRIBUTION WIDTH 29.3 % (11.6-13.7); WHITE BLOOD COUNT (AUTO) 2.8 K/uL (4.8-10.8)
[2023-02-08 05:30] LABS: ANION GAP 17.1 (8-16); CARBON DIOXIDE 15.3 mmol/L (21-32); CHLORIDE 113 mmol/L (98-107); CREATININE 1.3 mg/dL (0.6-1.3); GLUCOSE 100 mg/dL (74-106); POTASSIUM 4.4 mmol/L (3.5-5.1); SODIUM SERUM 141 mmol/L (136-145); UREA NITROGEN, BLOOD 24 mg/dL (7-18)
[2023-02-08 05:53] LABS: PHOSPHORUS 2.9 mg/dL (2.5-4.9)
[2023-02-08] MEDS ORDERED: LEVOTHYROXINE 0.05 MG TAB PO SCH (06:30)
[2023-02-08] MEDS: BLOOD GLUCOSE MONITORING 1 DEV DEV FS SCH ×4 (06:37→20:50)
--- NOTE | 2023-02-08 07:16 | NUR ---
ASSUMED CONTINUITY OF CARE. INITIAL ASSESSMENT DONE. RE-ORIENTED TO EVENTS AND SURROUNDINGS. KEEP COMFORTABLE ON BED. FALL PRECAUTION APPLIED. CALL LIGHT WITHIN REACH.
--- NOTE | 2023-02-08 07:23 | NUR ---
GAVE REPORT TO DAY SHIFT NURSE FOR CONTINUITY OF CARE.
[2023-02-08 08:00] VITALS: BP 150/72; PULSE 71; PULSE 82; RESP 18; TEMP 98.6; O2SAT 100; O2SAT 98
[2023-02-08] MEDS: PANTOPRAZOLE 40 MG INJ VIAL IVP SCH (08:56)
[2023-02-08] MEDS: FINASTERIDE 5 MG TAB PO SCH (09:00)
[2023-02-08] MEDS: LACTULOSE 20 GM/30 ML UDC PO SCH ×2 (09:00→21:05)
[2023-02-08] MEDS: DOCUSATE SODIUM 100 MG GELCAP PO SCH ×2 (09:00→21:06)
[2023-02-08] MEDS: FERROUS GLUCONATE 324 MG TAB PO SCH (09:00)
[2023-02-08] MEDS: lisinopriL 5 MG TAB PO SCH (09:00)
[2023-02-08] MEDS: carvediloL 3.125 MG TAB PO SCH ×2 (09:00→21:00)
[2023-02-08] MEDS: TAMSULOSIN 0.4 MG CAP PO SCH (09:00)
[2023-02-08] MEDS: GABAPENTIN 300 MG CAP PO SCH ×2 (09:00→21:00)
[2023-02-08] MEDS: DEXT 5% /NACL 0.9% 1,000 ML IV SCH (09:28)
--- NOTE | 2023-02-08 09:30 | NUR ---
NON-COMPLIANT AND YELLED AT TIMES. REFUSED PO MEDICINE PER MD ORDER EVEN WITH ASSISTANCE FROM PT. DAUGHTER -DREW. INFORMED CHARGE NURSE MARYCRUZ GOVEA.
--- NOTE | 2023-02-08 10:36 | NUR ---
DR. QIU CAME, INFORMED THAT PT. REFUSED PO MEDICINE EVEN WITH ASSISTANCE FROM PT. DAUGHTER -DREW. DR. QIU ORDERED NGT INSERTION AND APPLICATION OF ADORE SOFT WRIST RESTRAINT. INFORMED CHARGE NURSE MARYCRUZ GOVEA.
--- NOTE | 2023-02-08 11:38 | NUR ---
SPEECH THERAPIST CAME FOR PT. SWALLOW EVAL. ST RECOMMENDED PUREED DIET FOR THE PT.. INFORMED CHARGE NURSE -MARYCRUZ GOVEA.
[2023-02-08] MEDS: HYDRAGUARD CREAM TP SCH (13:26)
--- NOTE | 2023-02-08 15:55 | NUR ---
PAGED DR. QIU REGARDING 2X (@115=15 & @1529) UNSUCCESSFUL ATTEMPT OF NGT INSERTION WITH ASSISTANCE FROM CHARGE NURSE -MARYCRUZ.
--- NOTE | 2023-02-08 19:13 | NUR ---
REPORT GIVEN TO PHI GOVEA. IVF INFUSING WELL. IN STABLE CONDITION. ALSO ENDORSED ABOUT MD ORDER OF NGT INSERTION.
--- NOTE | 2023-02-08 19:14 | NUR ---
RECEIVED REPORT FROM AM NURSE FOR CONTINUITY OF CARE. PATIENT ON BILATERAL WRIST RESTRAINTS. NO SOB NOTED. BREATHING NORMAL UNLABORED. IVF D5NS INFUSING AT 50 MLS/HR. DAUGHTER AT BEDSIDE. BED WHEELS LOCKED IN LOW POSITION. CALL LIGHT WITHIN REACH.
[2023-02-08 20:00] VITALS: BP 134/66; PULSE 72; RESP 18; TEMP 98; O2SAT 99
[2023-02-09] MEDS: HYDRAGUARD CREAM TP SCH ×2 (01:00→13:08)
[2023-02-09 04:00] VITALS: BP 143/72; PULSE 69; RESP 18; TEMP 98.7; O2SAT 99
--- NOTE | 2023-02-09 05:35 | NUR ---
NGT INSERTED , VERIFIED PLACEMENT VIA CHEST XRAY. RADIOLOGY CALLED TO ADVANCE NGT TO 9CM, DONE.
[2023-02-09 05:38] LABS: BASOPHILS % (AUTO) 0.4 % (0.0-2.0); EOSINOPHILS # (AUTO) 0.1 K/uL (0-0.4); EOSINOPHILS % (AUTO) 3.8 % (0.0-4.0); HEMATOCRIT 24.3 % (36-52); HEMOGLOBIN 8.3 g/dL (12.0-18.0); LYMPHOCYTES # (AUTO) 0.9 K/uL (2.0-11.5); LYMPHOCYTES % (AUTO) 27.8 % (20.5-51.1); MEAN CORPUSCULAR HEMOGLOBIN 32 pg (27-31); MEAN CORPUSCULAR HGB CONC 34 g/dL (33-37); MEAN CORPUSCULAR VOLUME 93.4 fL (80-94); MONOCYTES # (AUTO) 0.2 K/uL (0.8-1.0); MONOCYTES % (AUTO) 6.6 % (1.7-9.3); NEUTROPHILS # (AUTO) 1.9 K/uL (1.8-7.7); NEUTROPHILS % (AUTO) 61.4 % (42.2-75.2); PLATELET COUNT (AUTO) 58 K/uL (140-450); RED CELL DISTRIBUTION WIDTH 29.1 % (11.6-13.7); WHITE BLOOD COUNT (AUTO) 3.2 K/uL (4.8-10.8)
[2023-02-09 05:59] LABS: CARBON DIOXIDE 15.8 mmol/L (21-32); CHLORIDE 111 mmol/L (98-107); CREATININE 1.2 mg/dL (0.6-1.3); GLUCOSE 129 mg/dL (74-106); POTASSIUM 3.8 mmol/L (3.5-5.1); SODIUM SERUM 137 mmol/L (136-145); UREA NITROGEN, BLOOD 20 mg/dL (7-18)
[2023-02-09] MEDS: DEXT 5% /NACL 0.9% 1,000 ML IV SCH (06:00)
[2023-02-09 06:01] LABS: MAGNESIUM 2.7 mg/dL (1.8-2.4); PHOSPHORUS 2.4 mg/dL (2.5-4.9)
[2023-02-09] MEDS: BLOOD GLUCOSE MONITORING 1 DEV DEV FS SCH ×4 (06:49→21:25)
[2023-02-09] MEDS: LEVOTHYROXINE 0.1 MG TAB PO SCH (06:51)
--- NOTE | 2023-02-09 07:10 | NUR ---
receive the patinet from the fast food shift lead rn in rm 123B aox1 with episode of confusion . still on nasogratsic tube on the left nares ,on bilateral soft wrist restraints . will continue to monitor
--- NOTE | 2023-02-09 07:34 | NUR ---
ENDORSED PATIENT TO DAY SHIFT NURSE FOR CONTINUITY OF CARE.
[2023-02-09 08:00] VITALS: BP 132/66; PULSE 70; PULSE 78; RESP 18; RESP 20; TEMP 97.1; TEMP 97.9; O2SAT 98; O2SAT 99
[2023-02-09] MEDS: FERROUS GLUCONATE 324 MG TAB PO SCH (09:00)
[2023-02-09] MEDS: lisinopriL 5 MG TAB PO SCH (09:00)
--- NOTE | 2023-02-09 09:17 | NUR ---
DC [age] YRS OLD FEMALE PATIENT WAS ADMITTED FROM HOME WITH A DX OF ALOC AND UTI. PATIENT HAS A HX OF DEMENTIA , HTN, DM, NEUROPATHY AND HYPOTHYROIDISM. CT HEAD SHOWED NO ACUTE INTRACRANIAL HEMORRHAGE. CXR NORMAL. CT ABD/PELVIS SHOWED LIVER CIRRHOSIS AND CHOLELITHIASIS WITH NONSPECIFIC PERICHOLECYSTIC EDEMA. ADMINISTERED IVF, IV ABX ROCEPHIN. DC PLAN TO GO HOME WHEN STABLE. CM TO FOLLOW Addendum: 02/11/23 at 1421 by CRISTIAN CEDENO CM RECEIVED ORDER FOR PATIENT TO GO TO SNF. SPOKE WITH SONE AND DAUGHTER LISTED AND THEY WANT PATIENT IN THE [facility]. FAXED ALL PAPERWORK TO [facility] LOCATED AT [address] [place] [address]. PATIENT WAS ACCEPTED GOING TO ROOM [facility] DR IS YET TO BE DETERMINED DISCHARGE IS FOR THIS WEEKEND. Addendum: 02/14/23 at 1416 by CRISTIAN CEDENO CM [facility] LOCATED AT [address] [place] [address]. BED 10[address] UNDER DR QIU. TRANSPORTATION ARRANGED WITH [employer] FOR A 1700 BARBED WIRE MACHINE OPERATOR TIME. RIDE CONFIRMATION #[id number] CHARGE NURSE MARYCRUZ AND DAUGHTER DREW AWARE OF THE ABOVE INFORMATION.
[2023-02-09] MEDS: RIFAXIMIN 550 MG TAB PO SCH ×2 (11:05→21:08)
[2023-02-09] MEDS: TAMSULOSIN 0.4 MG CAP PO SCH (11:05)
[2023-02-09] MEDS: GABAPENTIN 300 MG CAP PO SCH ×2 (11:05→21:08)
[2023-02-09] MEDS: FINASTERIDE 5 MG TAB PO SCH (11:05)
[2023-02-09] MEDS: carvediloL 3.125 MG TAB PO SCH ×2 (11:06→21:08)
[2023-02-09] MEDS: DOCUSATE SODIUM 100 MG GELCAP PO SCH ×2 (11:06→21:09)
[2023-02-09] MEDS: LACTULOSE 20 GM/30 ML UDC PO SCH ×3 (11:07→18:26)
[2023-02-09] MEDS: PANTOPRAZOLE 40 MG INJ VIAL IVP SCH (11:07)
--- NOTE | 2023-02-09 11:10 | NUR ---
Producer APPLICATIONS SYSTEM ANALYST spoke with dtr./caregiver over the phone as prog. notes stated pt. lindsay Dementia. Dtr. stated to her knowledge, pt. does not have Dementia, is confused and was told ammonia level is high and may attribute to pt. being confused. Dtr. stated her health is declining and feels if pt is going to need more care, she may not be able to have him back home Dtr. stated she is feeling overwhelmed, son on drugs, walked out on her a month ago and she may have to go to the ED today. APPLICATIONS SYSTEM ANALYST will share info with CM. Pt. is unable to care for self, uses a cane and glucometer.APPLICATIONS SYSTEM ANALYST will share info with CM.
[2023-02-09] MEDS: DEXT 5% / NACL 0.45% 1,000 ML IV SCH ×2 (11:16→21:55)
[2023-02-09 16:00] VITALS: BP 135/82; PULSE 87; RESP 18; TEMP 98; O2SAT 98
--- NOTE | 2023-02-09 19:08 | NUR ---
will endorse to night shift manager rn for continuity of care . still with nasogastric tube intact restraints renew
--- NOTE | 2023-02-09 19:10 | NUR ---
RECEIVED PATIENT SLEEPING IN BED WITH NGT INTACT. NO SOB NOTED. BREATHING NORMAL WITH SYMMETRICAL RISE AND FALL OF THE CHEST. WRIST RESTRAINTS ON NO INJURY NOTED. IVF D5NS INFUSING WELL. CALL LIGHT WITHIN REACH. BED IN LOW POSITION.
[2023-02-09 20:00] VITALS: PULSE 66; RESP 18; TEMP 97.7; O2SAT 98
--- NOTE | 2023-02-09 21:08 | NUR ---
ALL SCHEDULED DUE MEDICATIONS GIVEN VIA NGT.
[2023-02-10] MEDS: DEXT 5% / NACL 0.45% 1,000 ML IV SCH ×2 (00:27→11:33)
[2023-02-10] MEDS: HYDRAGUARD CREAM TP SCH ×2 (00:31→13:49)
[2023-02-10 04:00] VITALS: BP 120/60; PULSE 66; RESP 18; TEMP 97.7; O2SAT 98
--- NOTE | 2023-02-10 04:30 | NUR ---
ORAL CARE GIVEN TO PATIENT. CLEANED, CHANGED AND REPOSITIONED.
[2023-02-10 05:31] LABS: BASOPHILS % (AUTO) 0.5 % (0.0-2.0); EOSINOPHILS # (AUTO) 0.2 K/uL (0-0.4); EOSINOPHILS % (AUTO) 5.5 % (0.0-4.0); HEMATOCRIT 24.2 % (36-52); HEMOGLOBIN 8.4 g/dL (12.0-18.0); LYMPHOCYTES % (AUTO) 32.6 % (20.5-51.1); MEAN CORPUSCULAR HEMOGLOBIN 32 pg (27-31); MEAN CORPUSCULAR HGB CONC 35 g/dL (33-37); MEAN CORPUSCULAR VOLUME 92.9 fL (80-94); MONOCYTES # (AUTO) 0.2 K/uL (0.8-1.0); MONOCYTES % (AUTO) 7.4 % (1.7-9.3); NEUTROPHILS # (AUTO) 1.7 K/uL (1.8-7.7); PLATELET COUNT (AUTO) 50 K/uL (140-450); RED CELL DISTRIBUTION WIDTH 28.5 % (11.6-13.7); WHITE BLOOD COUNT (AUTO) 3.1 K/uL (4.8-10.8)
[2023-02-10] MEDS: LEVOTHYROXINE 0.1 MG TAB PO SCH (05:52)
[2023-02-10 06:13] LABS: ANION GAP 14.4 (8-16); CARBON DIOXIDE 15.4 mmol/L (21-32); CHLORIDE 109 mmol/L (98-107); CREATININE 1.1 mg/dL (0.6-1.3); GLUCOSE 137 mg/dL (74-106); POTASSIUM 3.8 mmol/L (3.5-5.1); SODIUM SERUM 135 mmol/L (136-145); UREA NITROGEN, BLOOD 15 mg/dL (7-18)
[2023-02-10 06:23] LABS: MAGNESIUM 2.5 mg/dL (1.8-2.4); PHOSPHORUS 2.3 mg/dL (2.5-4.9)
--- NOTE | 2023-02-10 07:27 | NUR ---
GAVE BEDSIDE REPORT TO NURSE ONEAL FOR CONTINUITY OF CARE.
--- NOTE | 2023-02-10 07:30 | NUR ---
RECEIVED REPORT FROM MENTAL HYGIENIST NURSE FOR CONTINUITY OF CARE. PT IS STABLE AT THIS TIME.
[2023-02-10 08:00] VITALS: BP 130/58; PULSE 69; RESP 16; TEMP 97.8; O2SAT 99
[2023-02-10] MEDS: RIFAXIMIN 550 MG TAB PO SCH ×2 (09:40→21:09)
[2023-02-10] MEDS: FERROUS GLUCONATE 324 MG TAB PO SCH (09:40)
[2023-02-10] MEDS: lisinopriL 5 MG TAB PO SCH (09:41)
[2023-02-10] MEDS: FINASTERIDE 5 MG TAB PO SCH (09:41)
[2023-02-10] MEDS: carvediloL 3.125 MG TAB PO SCH ×2 (09:41→21:09)
[2023-02-10] MEDS: TAMSULOSIN 0.4 MG CAP PO SCH (09:41)
[2023-02-10] MEDS: DOCUSATE SODIUM 100 MG GELCAP PO SCH ×2 (09:41→21:08)
[2023-02-10] MEDS: PANTOPRAZOLE 40 MG INJ VIAL IVP SCH (09:42)
[2023-02-10] MEDS: GABAPENTIN 300 MG CAP PO SCH ×2 (09:42→21:09)
[2023-02-10] MEDS: LACTULOSE 20 GM/30 ML UDC PO SCH ×3 (09:42→17:32)
[2023-02-10] MEDS: BLOOD GLUCOSE MONITORING 1 DEV DEV FS SCH ×4 (09:43→20:33)
--- NOTE | 2023-02-10 10:22 | NUR ---
PT. WITH LOW SILVIAON SCALE AT MODERATE TO HIGH RISK, CONTINUE TO FOLLOW PRESSURE INJURY PREVENTION INTERVENTIONS. PT. ADMITTED WITH BLE MULTIPLE DRY STABLE SCABBING SKIN. PT. WITH MASD TO GROINS AND SCROTAL/PENIS AREA, SKIN RED,MOIST. -BRANDY-CARE Q2H AND PRN, KEEP SKIN DRY AND CLEAN. APPLY Z GUARD TO GROINS/SCROTAL/PENIS BID AND PRN OF SOILING -POSITIONING: TURN AND REPOSITION PATIENT Q 2H OR SOONER USE PILLOWS TO KEEP BONY PROMINENCES FROM DIRECT CONTACT WITH SURFACES USE REPOSITIONING WEDGES TO PROVIDE 30-DEGREE ANGLE FOR SIDE LYING POSITIONS OFFLOADING OR FOAM DRESSING TO ALL TUBING TO PREVENT MEDICAL DEVICES RELATED PRESSURE INJURY -RE-EVALUATING AND MANAGING INCONTINENCE MONITOR SKIN CONDITION DURING POSITION CHANGE DO NOT MASSAGE REDNESS, BONY PROMINENCES FREQUENT BRANDY-CARE AND PROVIDE BARRIER CREAMS PRN IF SOILING MOISTURE CONTROL BY OFFER BED WATTERS/URINAL /ABSORBENT PAD TO WICK AND HOLD MOISTURE KEEP SKIN DRY AND PROTECT FROM FRICTION -MANAGE FRICTION/SHEAR/MOBILITY KEEP HOB AT THE LOWEST LEVEL OF ELEVATION NO MORE THAN 30 DEGREE UNLESS OTHERWISE CONTRAINDICATED USE LIFT SHEET OR TRANSFER DEVICE TO MOVE PATIENT AND PREVENT LATERAL SHEER. PROTECT HEELS, ELBOWS BONY PROMINENCES WITH SKIN BERRIES OR FOAM DRESSING IF EXPOSED TO FRICTION OFFLOAD BILATERAL HEELS BY PLACING PILLOWS UNDER CALVES AT ALL TIMES, UNLESS OTHERWISE CONTRAINDICATED -PRESSURE REDISTRIBUTION SURFACE THERAPY EDUAR ISOFLEX MATTRESS -NUTRITION: PLEASE FOLLOW RD RECOMMENDATIONS AND OFFER NUTRITION SUPPLEMENTS IF ORDERED. PLEASE CONTACT WOUND CARE NURSE FOR ANY QUESTION AND CHANGE OF WOUND CONDITION.
--- NOTE | 2023-02-10 14:49 | NUR ---
02/10/23 RD FOLLOW UP COMPLETED PLEASE REFER TO NUTRITION ASSESSMENT UNDER CARE ACTIVITY FOR ESTIMATED NUTRITIONAL NEEDS. 1. RD RECOMMENDS CONTINUING WITH PUREE, CCHO 60 GMS WITH NECTAR THICK LIQUIDS TOLERATED, ONCE MEDICALLY APPROPRIATE. 2. RD RECOMMENDS ENSURE CLEAR BID FOR PO INTAKE INCREASE ONCE MEDICALLY APPROPRIATE. THIS WILL PROVIDE 480 CALORIE AND 16 GRAMS OF PROTEIN. 3. RD TO FOLLOW-UP 2-3 DAYS, HIGH RISK DIVYA WALTON RD
[2023-02-10 16:00] VITALS: BP 133/71; PULSE 71; RESP 18; TEMP 98; O2SAT 98
--- NOTE | 2023-02-10 17:14 | NUR ---
MESSAGED THAT PT HAS BLOOD IN HIS URINE. DR WOULD LIKE TO ORDER A CBC AND URINE CULTURE
[2023-02-10 17:44] LABS: BASOPHILS % (AUTO) 0.7 % (0.0-2.0); EOSINOPHILS # (AUTO) 0.2 K/uL (0-0.4); EOSINOPHILS % (AUTO) 7.9 % (0.0-4.0); HEMATOCRIT 23.5 % (36-52); HEMOGLOBIN 8.2 g/dL (12.0-18.0); LYMPHOCYTES # (AUTO) 0.7 K/uL (2.0-11.5); MEAN CORPUSCULAR HEMOGLOBIN 32 pg (27-31); MEAN CORPUSCULAR HGB CONC 35 g/dL (33-37); MONOCYTES # (AUTO) 0.2 K/uL (0.8-1.0); MONOCYTES % (AUTO) 8.5 % (1.7-9.3); NEUTROPHILS # (AUTO) 1.5 K/uL (1.8-7.7); NEUTROPHILS % (AUTO) 55.9 % (42.2-75.2); PLATELET COUNT (AUTO) 45 K/uL (140-450); RED BLOOD CELL COUNT(AUTO) 2.52 MIL/uL (4.20-6.10); RED CELL DISTRIBUTION WIDTH 28.7 % (11.6-13.7); WHITE BLOOD COUNT (AUTO) 2.7 K/uL (4.8-10.8)
--- NOTE | 2023-02-10 19:45 | NUR ---
ENDORSED PT TO TEAMCENTER SOLUTION ARCHITECT NURSE FOR CONTINUITY OF CARE. PT STABLE AT THIS TIME.
--- NOTE | 2023-02-10 19:55 | NUR ---
RECEIVED PT FROM AM NURSE FOR CONTINUITY OF CARE. PT IS STABLE
[2023-02-10 20:00] VITALS: PULSE 70; RESP 17; TEMP 97.4; O2SAT 98
--- NOTE | 2023-02-10 20:00 | NUR ---
CLEANED THE PATIENT DUE TO BOWEL. CONDOM CATHETER WAS SOILED SO I TOOK IT OUT. NOTICED THE GLANS PENIS HAS REDNESS, TOOK A PICTURE AND ORDERED WOUND CONSULT
[2023-02-11] MEDS: DEXT 5% / NACL 0.45% 1,000 ML IV SCH ×2 (00:41→13:59)
[2023-02-11] MEDS: HYDRAGUARD CREAM TP SCH ×2 (00:42→13:59)
[2023-02-11 04:00] VITALS: BP 120/67; PULSE 74; RESP 18; TEMP 97.9; O2SAT 98
[2023-02-11 05:33] LABS: BASOPHILS % (AUTO) 0.4 % (0.0-2.0); EOSINOPHILS # (AUTO) 0.2 K/uL (0-0.4); EOSINOPHILS % (AUTO) 5.7 % (0.0-4.0); LYMPHOCYTES # (AUTO) 0.8 K/uL (2.0-11.5); LYMPHOCYTES % (AUTO) 27.3 % (20.5-51.1); MEAN CORPUSCULAR HEMOGLOBIN 32 pg (27-31); MEAN CORPUSCULAR HGB CONC 35 g/dL (33-37); MEAN CORPUSCULAR VOLUME 93.2 fL (80-94); MONOCYTES # (AUTO) 0.2 K/uL (0.8-1.0); MONOCYTES % (AUTO) 7.2 % (1.7-9.3); NEUTROPHILS # (AUTO) 1.8 K/uL (1.8-7.7); NEUTROPHILS % (AUTO) 59.4 % (42.2-75.2); PLATELET COUNT (AUTO) 48 K/uL (140-450); RED BLOOD CELL COUNT(AUTO) 2.47 MIL/uL (4.20-6.10); RED CELL DISTRIBUTION WIDTH 28.6 % (11.6-13.7); WHITE BLOOD COUNT (AUTO) 3.1 K/uL (4.8-10.8)
[2023-02-11 05:47] LABS: ANION GAP 12.9 (8-16); CARBON DIOXIDE 16.5 mmol/L (21-32); CHLORIDE 108 mmol/L (98-107); CREATININE 1.1 mg/dL (0.6-1.3); GLUCOSE 150 mg/dL (74-106); MAGNESIUM 2.2 mg/dL (1.8-2.4); PHOSPHORUS 2.3 mg/dL (2.5-4.9); POTASSIUM 3.4 mmol/L (3.5-5.1); SODIUM SERUM 134 mmol/L (136-145); UREA NITROGEN, BLOOD 13 mg/dL (7-18)
[2023-02-11] MEDS: LEVOTHYROXINE 0.1 MG TAB PO SCH (06:09)
[2023-02-11] MEDS: BLOOD GLUCOSE MONITORING 1 DEV DEV FS SCH ×4 (06:52→20:50)
--- NOTE | 2023-02-11 07:43 | NUR ---
RECEIVED PT CARE AND REPORT FROM JAYDEN TAVERA SHIFT NURSE. PT IS RESTING IN BED SEMI FOWLERS WITH OU CLOSED. NO VISIBLE S/S OF DISTRESS, DISCOMFORT, PAIN OR SOB. NG TUBE IN PLACE. BILAT SOFT WRIST RESTRAINTS IN PLACE AND INTACT. SKIN IS INTACT WITHOUT REDNESS OR SWELLING. CALL LIGHT IS WITHIN REACH, ALL NEEDS MET AT THIS TIME.
[2023-02-11 08:00] VITALS: PULSE 92; RESP 18; TEMP 98.2; O2SAT 98
[2023-02-11] MEDS: LACTULOSE 20 GM/30 ML UDC PO SCH ×3 (09:18→17:34)
[2023-02-11] MEDS: FINASTERIDE 5 MG TAB PO SCH (09:19)
[2023-02-11] MEDS: RIFAXIMIN 550 MG TAB PO SCH ×2 (09:20→20:38)
[2023-02-11] MEDS: GABAPENTIN 300 MG CAP PO SCH ×2 (09:20→20:38)
[2023-02-11] MEDS: TAMSULOSIN 0.4 MG CAP PO SCH (09:20)
[2023-02-11] MEDS: carvediloL 3.125 MG TAB PO SCH ×2 (09:21→20:38)
[2023-02-11] MEDS: DOCUSATE SODIUM 100 MG GELCAP PO SCH ×2 (09:21→20:38)
[2023-02-11] MEDS: FERROUS GLUCONATE 324 MG TAB PO SCH (09:21)
[2023-02-11] MEDS: lisinopriL 5 MG TAB PO SCH (09:21)
[2023-02-11] MEDS: PANTOPRAZOLE 40 MG INJ VIAL IVP SCH (09:22)
--- NOTE | 2023-02-11 10:00 | NUR ---
BILAT SOFT RESTRAINTS IN PLACE AND INTACT. SKIN IS INTACT WITHOUT SWELLING OR REDNESS. RESTRAINTS SECURED.
--- NOTE | 2023-02-11 10:02 | NUR ---
<10ML OF PALE WHITE RESIDUAL FROM NG-TUBE. CRUSHED MEDS AND MIXED IN 50ML H2O FOR ADMINISTRATION. FLUSHED MEDICATIONS WITH H20. PT TOLERATED WELL.
--- NOTE | 2023-02-11 10:40 | NUR ---
TEXTED DR. QIU TO INFORM OF POTASSIUM LEVEL OF 3.4 THIS MORNING. ALSO REPORTED THAT PT IS ON BILAT SOFT WRIST RESTRAINTS FOR PULLING OF LINES AND EQUIPMENT. RENEWAL DUE AT 1100 THIS MORNING. REQUESTING RENEWAL.
--- NOTE | 2023-02-11 10:52 | NUR ---
DR. QIU RESPOMDED, STATED THAT RESTRAINTS ARE TO BE DISCONTINUED AND PATIENT WILL REQUIRE A SITTER.
--- NOTE | 2023-02-11 11:00 | NUR ---
RESTRAINTS ORDER NOT RENEWED. DR. QIU ORDERED FOR SITTER. RESTRAINTS REMOVED WITH SKIN INTACT WITHOUT REDNESS OR SWELLING. SITTER AT BEDSIDE.
[2023-02-11] MEDS ORDERED: POTASSIUM CHLORIDE 20% 40 MEQ/15 ML UDC PO SCH (12:15)
[2023-02-11] MEDS: Z-GUARD PASTE TP SCH (13:00)
--- NOTE | 2023-02-11 14:00 | NUR ---
HYDRAGUARD AND Z-GUARD NOT SCANNING PROPERLY. MEDS WERE ADMINISTERED ORDERED.
[2023-02-11] MEDS: INSULIN LISPRO SLIDING SCALE 100 UNITS/ML VIAL SUBQ PRN (16:43)
--- NOTE | 2023-02-11 18:33 | NUR ---
PT IS RESTING IN BED SEMI FOWLERS WITH OU CLOSED. NO VISIBLE S/S OF DISTRESS, DISCOMFORT, PAIN OR SOB. CALL LIGHT IS WITHIN REACH, ALL NEEDS MET AT THIS TIME. POOR APPETITE THROUGHOUT SHIFT. PT REFUSING TO EAT ALL MEALS. WILL INTAKE 3-4 BITES OF FOOD THEN STOP. ALL MEDICATIONS GIVEN VIA G-TUBE WITH RESIDUAL <10ML THROUGHOUT SHIFT. PT TOLERATING WELL. MEDS FLUSHED WITH H2O. SITTER AT BEDSIDE. ALL NEEDS MET AT THIS TIME. CALL LIGHT WITHIN REACH. WILL ENDORSE TO NOC SHIFT.
--- NOTE | 2023-02-11 18:45 | NUR ---
STEVEN RN FROM NURSERY PRESENT AND WILL BE SITTER FOR NOC SHIFT. GAVE REPORT TO STEVEN ON PT CONDITION. SITTER AT BEDSIDE AT THIS TIME.
--- NOTE | 2023-02-11 19:05 | NUR ---
RECEIVED BEDSIDE REPORT FROM FATMATA FRANCISCO FOR CONTINUITY OF CARE. PATIENT IS STABLE AND RESTING IN BED. PATIENT RESPONDS TO NAME ONLY. ON ROOM AIR WITH NO APPARENT S/SX OF ACUTE DISTRESS. RESPIRATIONS EVEN AND UNLABORED WITH NO APPARENT S/SX OF ACUTE DISTRESS. IV SITE TO THE RAC 18G INTACT/PATENT WITH D5NS.45 INFUSING AT 75 ML/HR. SKIN IS INTACT. PATIENT IS CURRENTLY ON BEDREST. NGT PRESENT. POC AND WHITE COMMUNICATION BOARD UPDATED. ALL SAFETY MEASURES IN PLACE. BED IN LOW/LOCKED POSITION. CALL LIGHT WITHIN REACH. 1:1 SITTER FOR SAFETY PRESENT ON BESIDE. WILL CONTINUE TO MONITOR.
[2023-02-11 20:00] VITALS: BP 108/56; PULSE 75; RESP 16; TEMP 97.8; O2SAT 93
--- NOTE | 2023-02-11 21:15 | NUR ---
ADMINISTERED SCHEDULED MEDICATION PER MD ORDER. TOLERATED WELL. NO RESIDUALS PRIOR TO ADMINISTRATION. FLUSHED WITH 30 ML BEFORE AND AFTER MEDICATION. CHECKED BLOOD SUGAR AND NO COVERAGE NEEDED PER MD ORDER. FLACC=0. RESPIRATIONS EVEN AND UNLABORED WITH NO APPARENT S/SX OF ACUTE DISTRESS. WHITE COMMUNICATION BOARD UPDATED. ALL SAFETY MEASURES IN PLACE. CALL LIGHT WITHIN REACH. ENCOURAGED TO USE CALL LIGHT FOR ANY NEEDS/ASSISTANCE. BED IN LOW/LOCKED POSITION. SIDE RAILS X2 UP. 1:1 SITTER AT BEDSIDE FOR SAFETY. WILL CONTINUE TO MONITOR.
--- NOTE | 2023-02-11 21:46 | NUR ---
Patient's Plan of Care was discussed and reviewed with SALES SOLUTIONS ASSOCIATE: CHRISTINE SIFUENTES
--- NOTE | 2023-02-11 23:15 | NUR ---
PATIENT IS CURRENTLY NOT SOILED AT THIS TIME. PATIENT IS ASLEEP WITH NO FACIAL GRIMACING. CHEST IS RISING AND FALLING SYMMETRICALLY. RESPIRATIONS EVEN AND UNLABORED WITH NO APPARENT S/SX OF ACUTE DISTRESS. WHITE COMMUNICATION BOARD UPDATED. ALL SAFETY MEASURES IN PLACE. CALL LIGHT WITHIN REACH. BED IN LOW/LOCKED POSITION. SIDE RAILS X2 UP. 1:1 SITTER AT BEDSIDE. WILL CONTINUE TO MONITOR.
--- NOTE | 2023-02-12 01:15 | NUR ---
CLEANED AND CHANGED PATIENT. PERFORMED BRANDY CARE AND WOUND CARE PER MD ORDER. TOLERATED WELL. FLACC=0. RESPIRATIONS EVEN AND UNLABORED WITH NO APPARENT S/SX OF ACUTE DISTRESS. WHITE COMMUNICATION BOARD UPDATED. ALL SAFETY MEASURES IN PLACE. CALL LIGHT WITHIN REACH. ENCOURAGED PATIENT TO USE CALL LIGHT FOR ANY NEEDS/ASSISTANCE. BED IN LOW/LOCKED POSITION. SIDE RAILS X2 UP. 1:1 SITTER AT BEDSIDE. WILL CONTINUE TO MONITOR.
[2023-02-12] MEDS: Z-GUARD PASTE TP SCH ×2 (01:16→13:31)
[2023-02-12] MEDS: HYDRAGUARD CREAM TP SCH ×2 (01:17→13:31)
--- NOTE | 2023-02-12 02:36 | NUR ---
ROUNDS , NO S/ SX OF ACUTE DISTRESS NOTED AT THIS TIME , CALL LIGHT WITHIN REACH , WATCHER AT BEDSIDE . WILL CONT. TO MONITOR
[2023-02-12] MEDS: DEXT 5% / NACL 0.45% 1,000 ML IV SCH ×2 (03:55→18:36)
[2023-02-12 04:00] VITALS: BP 101/45; PULSE 70; RESP 16; TEMP 98.8; O2SAT 99
--- NOTE | 2023-02-12 05:20 | NUR ---
PATIENT'S MENTATION IMPROVED. PATIENT IS ORIENTED TO NAME & . PATIENT ASKED, "AM I IN [place] OR [place]?" REORIENTED PATIENT TO HOSPITAL ENVIRONMENT AND DATE. PATIENT IS ATTEMPTING TO CLEAR SECRETIONS BY COUGHING. SET UP SUCTION MACHINE AND PERFORMED ORAL CARE. TOLERATED WELL. PATIENT VERBALIZED HE WAS HUNGRY. PROVIDED SOME JELLO AND PATIENT WAS ABLE TO CONSUME 100% WITHOUT ANY DIFFICULTY. NO SIGNS OF DYSPHAGIA NOTED. ALL NEEDS MET AT THIS TIME. WHITE COMMUNICATION BOARD UPDATED. ALL SAFETY MEASURES IN PLACE. CALL LIGHT WITHIN REACH. ENCOURAGED PATIENT TO USE CALL LIGHT FOR ANY NEEDS/ASSISTANCE. BED IN LOW/LOCKED POSITION. SIDE RAILS X2 UP. 1:1 SITTER PRESENT AT BEDSIDE. WILL CONTINUE TO MONITOR.
[2023-02-12 05:24] LABS: BASOPHILS % (AUTO) 0.4 % (0.0-2.0); EOSINOPHILS # (AUTO) 0.1 K/uL (0-0.4); EOSINOPHILS % (AUTO) 4.5 % (0.0-4.0); HEMATOCRIT 21.7 % (36-52); HEMOGLOBIN 7.6 g/dL (12.0-18.0); LYMPHOCYTES # (AUTO) 0.9 K/uL (2.0-11.5); LYMPHOCYTES % (AUTO) 29.1 % (20.5-51.1); MEAN CORPUSCULAR HEMOGLOBIN 32 pg (27-31); MEAN CORPUSCULAR HGB CONC 35 g/dL (33-37); MEAN CORPUSCULAR VOLUME 93.2 fL (80-94); MONOCYTES # (AUTO) 0.2 K/uL (0.8-1.0); MONOCYTES % (AUTO) 7.3 % (1.7-9.3); NEUTROPHILS # (AUTO) 1.7 K/uL (1.8-7.7); NEUTROPHILS % (AUTO) 58.7 % (42.2-75.2); PLATELET COUNT (AUTO) 42 K/uL (140-450); RED BLOOD CELL COUNT(AUTO) 2.33 MIL/uL (4.20-6.10); RED CELL DISTRIBUTION WIDTH 28.6 % (11.6-13.7)
[2023-02-12] MEDS: LEVOTHYROXINE 0.1 MG TAB PO SCH (05:33)
[2023-02-12 06:16] LABS: PHOSPHORUS 2.1 mg/dL (2.5-4.9)
[2023-02-12] MEDS: BLOOD GLUCOSE MONITORING 1 DEV DEV FS SCH ×4 (06:31→20:54)
[2023-02-12 06:35] LABS: ANION GAP 12.6 (8-16); CARBON DIOXIDE 15.2 mmol/L (21-32); CHLORIDE 107 mmol/L (98-107); GLUCOSE 140 mg/dL (74-106); POTASSIUM 3.8 mmol/L (3.5-5.1); SODIUM SERUM 131 mmol/L (136-145); UREA NITROGEN, BLOOD 12 mg/dL (7-18)
[2023-02-12 07:11] LABS: CREATININE 1.1 mg/dL (0.6-1.3)
--- NOTE | 2023-02-12 07:20 | NUR ---
ENDORSED PATIENT TO FATMATA WARREN FOR CONTINUITY OF CARE. PATIENT IS STABLE.
--- NOTE | 2023-02-12 07:21 | NUR ---
RECEIVED BEDSIDE REPORT FROM NIGHTSHIFT NURSE. PT RESTING IN BED, STABLE, NO SIGNS OF DISTRESS, NO REPORTS OF PAIN/DISCOMFORT. NO FURTHER NEEDS ARE TO BE MET AT THIS TIME. CALL LIGHT WITHIN REACH. WILL CONTINUE WITH PT CARE.
[2023-02-12 08:00] VITALS: PULSE 64; RESP 18; TEMP 98; O2SAT 100
[2023-02-12] MEDS: carvediloL 3.125 MG TAB PO SCH ×2 (09:00→20:42)
[2023-02-12] MEDS: PANTOPRAZOLE 40 MG INJ VIAL IVP SCH (09:51)
[2023-02-12] MEDS: LACTULOSE 20 GM/30 ML UDC PO SCH ×3 (09:51→18:36)
[2023-02-12] MEDS: lisinopriL 5 MG TAB PO SCH (09:52)
[2023-02-12] MEDS: GABAPENTIN 300 MG CAP PO SCH ×2 (09:52→20:43)
[2023-02-12] MEDS: RIFAXIMIN 550 MG TAB PO SCH ×2 (09:53→20:43)
[2023-02-12] MEDS: DOCUSATE SODIUM 100 MG GELCAP PO SCH ×2 (09:53→20:43)
[2023-02-12] MEDS: FINASTERIDE 5 MG TAB PO SCH (09:53)
[2023-02-12] MEDS: TAMSULOSIN 0.4 MG CAP PO SCH (09:54)
[2023-02-12] MEDS: FERROUS GLUCONATE 324 MG TAB PO SCH (09:55)
[2023-02-12] MEDS: INSULIN LISPRO SLIDING SCALE 100 UNITS/ML VIAL SUBQ PRN (13:29)
--- NOTE | 2023-02-12 16:46 | NUR ---
PT WAS SEEN FOR DYSPHAGIA. PT WAS HAVING WET VOICE ,CHANGE IN BREATHING PATTERN DURING THE INTAKE OF PUREE DIET WITH NTL. PT HAD LEAKAGE OF PUREE DIET. RECOMMENDATION NPO ALTERNATE MODE OF FEEDING
--- NOTE | 2023-02-12 19:47 | NUR ---
ENDORSED TO NIGHTSHIFT NURSE FOR CONTINUITY OF CARE. PT STABLE, RESTING IN BED. CALL LIGHT WITHIN REACH.
--- NOTE | 2023-02-12 19:48 | NUR ---
RECEIVED SHIFT ENDORSEMENT FROM BRIANA AVILEZ. PATIENT WAS STABLE DURING SHIFT REPORT. PATIENT WAS FOUND SLEEPING WITH 1:1 AT BEDSIDE BUT WAS ABLE TO RESPOND WHEN NAME WAS CALLED. UNDERSTOOD WE WERE HIS NURSE FOR THE EVENING AND WILL RETURN FOR MEDICATION PASS. PATIENT REMAINS ON NPO STATUS PER SPEECH THERAPIST EVALUATION. PATIENT IS ON ROOM AIR NO NOTED RESPIRATORY DISTRESS. BREATHING EVENLY. SIDE RAILS UP X 3 CALL LIGHT WITHIN REACH. BED AT THE LOWEST LEVEL. PATIENT IS UNABLE TO USE THE CALL LIGHT. NURSING WILL FREQUENT ROOM FOR ANTICIPATED NEEDS AND WANTS. [email or web address]
[2023-02-12 20:00] VITALS: BP 111/51; PULSE 76; RESP 18; TEMP 98.1; O2SAT 97
--- NOTE | 2023-02-12 20:00 | NUR ---
Patient's Plan of Care was discussed and reviewed with PROFESSOR OF MUSICOLOGY: TAI LOPEZ
--- NOTE | 2023-02-12 20:55 | NUR ---
DURING MEDICATION PASS 3 OUT OF FOUR OF THE MEDICATION DID NOT SCAN. PHARMACY WILL BE NOTIFIED AND CHARGE NURSE WAS NOTIFIED. [email or web address]
[2023-02-13] MEDS: HYDRAGUARD CREAM TP SCH ×2 (01:39→13:00)
[2023-02-13] MEDS: Z-GUARD PASTE TP SCH ×2 (01:40→13:00)
--- NOTE | 2023-02-13 01:41 | NUR ---
PHARMACY WAS LEFT A MESSAGE ABOUT THE HYDRAGUARD. CHARGE NURSE WAS INFORMED. PATIENT WAS GIVEN BED BATH REPOSITIONED AND TREATMENT WAS APPLIED TO PENIS. LEFT A MESSAGE TO PHARMACY OF THE NO BARCODE ON THE MEDICATION TO SCAN. PATIENT WAS REPOSITIONED AND KEPT CLEAN AND DRY. SIDE RAILS UP X 3 CALL LIGHT WITHIN REACH. SITTER AT BEDSIDE FOR SAFETY. NURSING WILL FREQUENT ROOM FOR ANTICIPATED NEEDS AND WANTS. [email or web address]
[2023-02-13 04:00] VITALS: BP 101/54; PULSE 67; RESP 19; TEMP 97.6; O2SAT 98
[2023-02-13] MEDS: BLOOD GLUCOSE MONITORING 1 DEV DEV FS SCH ×4 (06:14→21:01)
[2023-02-13] MEDS: DEXT 5% / NACL 0.45% 1,000 ML IV SCH ×2 (06:14→21:13)
[2023-02-13] MEDS: LEVOTHYROXINE 0.1 MG TAB PO SCH (06:16)
--- NOTE | 2023-02-13 06:36 | NUR ---
PATIENT WAS WASHED AND CHANGED HAD BOWEL MOVEMENT SOFT. TOOK CURRENT PICTURE OF WOUND TO GENERATE HEALING OF THE GENITALS. NOTED WAS SKIN SCABS WERE COMING OFF DURING BED BATH AND WOUND CARE. PATIENT IS REQUESTING TO HAVE NG TUBE REMOVED CLAIMS IT IS CAUSING HIM PAIN, WHEN ASKED THE NUMBER OF PAIN SCALE WAS NOT ABLE TO ANSWER. NO NOTED FACIAL GRIMACING OR WITHDRAWAL AT THIS TIME. PATIENT EDUCATION WAS GIVEN ABOUT NOT SPILLING OUT MEDICATION AND TRY TO EAT HIS FOOD. PATIENT AGREED AND UNDERSTOOD. NURSING WILL ENDORSE TO AM SHIFT NURSE. [email or web address]
--- NOTE | 2023-02-13 07:28 | NUR ---
ENDORSED CARE TO BRIANA RN, PATIENT WAS STABLE DURING SHIFT REPORT. NURSE WAS INFORMED OF NEW PICTURES OF WOUND AND NEEDS UPDATE ON LOWER EXTREMITIES CLEARING UP. ENCOURAGED TO CALL MD TO GIVE ORAL MEDS OR CHANGE TO LIQUID MEDS FOR NG TUBE. [email or web address] MNURPH1
--- NOTE | 2023-02-13 07:29 | NUR ---
RECEIVED BEDSIDE REPORT FROM NIGHTSHIFT NURSE. PT ASLEEP IN BED, WOKE TO NAME AND TOUCH, NO SIGNS OF DISTRESS, NO REPORTS OF PAIN OR DISCOMFORT. CALL LIGHT PLACED WITHIN REACH. NO FURTHER NEEDS ARE TO BE MET AT THIS TIME, WILL CONTINUE WITH PT CARE.
[2023-02-13 08:00] VITALS: PULSE 68; RESP 18; TEMP 98.7; O2SAT 99
[2023-02-13] MEDS: RIFAXIMIN 550 MG TAB PO SCH (10:09)
[2023-02-13] MEDS: LACTULOSE 20 GM/30 ML UDC PO SCH ×3 (10:09→17:33)
[2023-02-13] MEDS: GABAPENTIN 300 MG CAP PO SCH ×2 (10:10→21:14)
[2023-02-13] MEDS: FINASTERIDE 5 MG TAB PO SCH (10:10)
[2023-02-13] MEDS: carvediloL 3.125 MG TAB PO SCH ×2 (10:10→21:14)
[2023-02-13] MEDS: lisinopriL 5 MG TAB PO SCH (10:10)
[2023-02-13] MEDS: FERROUS GLUCONATE 324 MG TAB PO SCH (10:11)
[2023-02-13] MEDS: DOCUSATE SODIUM 100 MG GELCAP PO SCH ×2 (10:11→21:13)
[2023-02-13] MEDS: PANTOPRAZOLE 40 MG INJ VIAL IVP SCH (10:11)
[2023-02-13] MEDS: TAMSULOSIN 0.4 MG CAP PO SCH (10:11)
[2023-02-13] MEDS: ACETAMINOPHEN 325 MG TAB PO PRN ×2 (13:48→22:37)
--- NOTE | 2023-02-13 15:40 | NUR ---
02/13/23 RD FOLLOW UP COMPLETED.PLEASE REFER TO NUTRITION ASSESSMENT UNDER CARE ACTIVITY FOR ESTIMATED NUTRITIONAL NEEDS. 1.CONTINUE NPO PER MD. WHEN/IF MEDICALLY APPROPRIATE TO INITIATE TUBE FEEDING, RECOMMEND GLUCERNA 1.2 NISHA WITH A GOAL RATE OF 45 ML/HR WITH TUNG BID (160 KCAL, 5 G PROTEIN) -START AT 10 ML/HR AND INCREASE BY 10 ML Q4H UNTIL GOAL RATE IS REACHED -FWF 200 ML Q8H OR PER MD THIS WILL PROVIDE 1080 ML VOLUME, 1296 KCAL, 65 GRAMS OF PROTEIN, AND 1169 ML FREE WATER, MEETING 96% ESTIMATED KCAL NEEDS AND 100% PROTEIN NEEDS; ADEQUATE 2. MONITOR NPO STATUS 3. RD TO FOLLOW-UP IN 2-3 DAYS PATIENT IS HIGH RISK. JAYDEN CALLES RD
--- NOTE | 2023-02-13 19:37 | NUR ---
ENDORSED TO NIGHTSHIFT NURSE FOR CONTINUITY OF CARE. PT STABLE, RESTING IN BED. NO SIGNS OF DISTRESS. PT STATES HE IS HUNGRY, INFORMED DR VIZCARRA. WAITING FOR RESPONSE. ENDORSED TO NIGHTSHIFT. NO FURTHER NEEDS ARE TO BE MET AT THIS TIME. CALL LIGHT PLACED WITHIN REACH.
--- NOTE | 2023-02-13 19:38 | NUR ---
RECEIVED SHIFT ENDORSEMENT FROM BRIANA AVILEZ. PATIENT WAS STABLE DURING SHIFT REPORT. PATIENT WAS FOUND SLEEPING WITH 1:1 AT BEDSIDE BUT WAS ABLE TO RESPOND WHEN NAME WAS CALLED. UNDERSTOOD WE WERE HIS NURSE FOR THE EVENING AND WILL RETURN FOR MEDICATION PASS. PATIENT REMAINS WITH NG TUBE FOR MEDICATION PASS. PATIENT IS ON ROOM AIR NO NOTED RESPIRATORY DISTRESS. BREATHING EVENLY. SIDE RAILS UP X 3 FOR SAFETY AND ADJUSTMENT. CALL LIGHT WITHIN REACH FOR MENTAL STIMULATION. PATIENT IS UNABLE TO USE THE CALL LIGHT. BED AT THE LOWEST LEVEL. NURSING WILL FREQUENT ROOM FOR ANTICIPATED NEEDS AND WANTS. [email or web address]
[2023-02-13 20:00] VITALS: BP 93/47; PULSE 58; RESP 18; TEMP 97.7; O2SAT 99
--- NOTE | 2023-02-13 20:00 | NUR ---
Patient's Plan of Care was discussed and reviewed with DOCK COORDINATOR: TAI LOPEZ
--- NOTE | 2023-02-13 22:54 | NUR ---
PATIENT WAS ABLE TO TAKE MEDICATION WITHOUT INCIDENT. PATIENT INFORMED NURSING THAT HE HAS A HEADACHE AND TYLENOL WAS GIVEN VIA NG TUBE FOR THE PAIN. NURSING WILL REASSESS IN ONE HOUR TIME FOR EFFECTIVENESS. NO NOTED SIDE EFFECTS OR COMPLICATIONS. NURSING ENSURED CALL LIGHT WITHIN REACH FOR MENTAL STIMULATION. SIDE RAILS UP X 3 FOR SAFETY. 1:1 SITTER AT BEDSIDE TO KEEP PATIENT SAFE FROM ATTEMPTING TO REMOVE NG TUBE OR GET OUT OF THE BED. NO NOTED RESPIRATORY DISTRESS. [email or web address]
[2023-02-14] MEDS: HYDRAGUARD CREAM TP SCH ×2 (01:32→13:00)
[2023-02-14] MEDS: Z-GUARD PASTE TP SCH ×2 (01:32→13:00)
--- NOTE | 2023-02-14 02:16 | NUR ---
PATIENT WAS CHANGED AND TREATMENT WAS APPLIED. PATIENT COMPLAINED OF TENDERNESS TO GENITALS. NURSING WAS GENTLE NO TO CAUSE MORE PAIN. HYDROGEL IS NOT SCANNING WILL LEAVE A MESSAGE FOR PHARMACY. NURSING ENSURED CALL LIGHT WITHIN REACH FOR MENTAL STIMULATION. SIDE RAILS UP X 3 FOR SAFETY. 1:1 SITTER AT BEDSIDE TO KEEP PATIENT SAFE FROM ATTEMPTING TO REMOVE NG TUBE OR GET OUT OF THE BED. NO NOTED RESPIRATORY DISTRESS. [email or web address]
[2023-02-14 04:00] VITALS: BP 97/35; PULSE 53; RESP 17; TEMP 97.9; O2SAT 100
--- NOTE | 2023-02-14 04:33 | NUR ---
PATIENT BLOOD PRESSURE WAS NOTED 92/38 ON THE RIGHT ARM THEN 97/35 ON THE LEFT. MD WAS NOTIFIED AFTER CONSULTING WITH THE CHARGE NURSE. AWAITING CALL BACK. [email or web address]
[2023-02-14] MEDS ORDERED: NACL 0.9% 1,000 ML IV SCH (05:10)
[2023-02-14] MEDS: LEVOTHYROXINE 0.1 MG TAB PO SCH (05:40)
--- NOTE | 2023-02-14 05:53 | NUR ---
NEW ORDERS FOR BOLUS NORMAL SALINE X ONCE. NURSING WILL LET IS RUN FOR ONE HOUR ONE MINUTE AND RECHECK HIS BLOOD PRESSURE FOR IMPROVEMENTS. [email or web address]
[2023-02-14] MEDS: BLOOD GLUCOSE MONITORING 1 DEV DEV FS SCH ×3 (06:32→16:30)
--- NOTE | 2023-02-14 06:54 | NUR ---
POST BOLUS IV HYDRATION BLOOD PRESSURE WAS NOTED AT 103/44 AND HEART RATE AT 56. THIS WILL BE ENDORSED TO AM SHIFT NURSE TO FOLLOW UP WITH MD IF HE WANT ANOTHER BOLUS. [email or web address]
--- NOTE | 2023-02-14 07:14 | NUR ---
ENDORSED CARE TO SHADE RN, PATIENT WAS STABLE DURING SHIFT REPORT. SIDE RAILS UP X 2 AND CALL LIGHT WITHIN REACH FOR ALL ASSISTANCE. [email or web address]
[2023-02-14 08:00] VITALS: BP 99/50; PULSE 58; RESP 18; TEMP 97.6; TEMP 97.7; O2SAT 97
[2023-02-14] MEDS: DEXT 5% / NACL 0.45% 1,000 ML IV SCH (08:35)
[2023-02-14] MEDS: DOCUSATE SODIUM 100 MG GELCAP PO SCH (09:00)
[2023-02-14] MEDS: LACTULOSE 20 GM/30 ML UDC PO SCH ×2 (09:00→13:00)
[2023-02-14] MEDS: FERROUS GLUCONATE 324 MG TAB PO SCH (09:00)
[2023-02-14] MEDS: GABAPENTIN 300 MG CAP PO SCH (09:00)
[2023-02-14] MEDS: PANTOPRAZOLE 40 MG INJ VIAL IVP SCH (09:00)
[2023-02-14] MEDS: FINASTERIDE 5 MG TAB PO SCH (09:00)
--- NOTE | 2023-02-14 09:30 | NUR ---
NOTIFIED MD THAT PATIENT DID WELL WITH BEDSIDE SWALLOW AND IF PATIENT CAN HAVE PUREE DIET
--- NOTE | 2023-02-14 09:50 | NUR ---
PT. REFUSED LACTULOSE
[2023-02-14] MEDS: TAMSULOSIN 0.4 MG CAP PO SCH (10:01)
[2023-02-14] MEDS: lisinopriL 5 MG TAB PO SCH (10:02)
[2023-02-14] MEDS: carvediloL 3.125 MG TAB PO SCH (10:02)
[2023-02-14] MEDS ORDERED: SYN.1 PO (10:42)
[2023-02-14] MEDS ORDERED: RIFA550T PO (10:42)
[2023-02-14] MEDS ORDERED: LACT10SO11 PO (10:42)
[2023-02-14 15:29] VITALS: BP 99/50; PULSE 58; RESP 18; TEMP 97.6
--- NOTE | 2023-02-14 15:40 | NUR ---
GAVE REPORT TO JORGE AT [facility]
--- NOTE | 2023-02-14 17:30 | NUR ---
CALLED [facility] PER REP TRANSPORT SHOULD ARRIVE IN 30 MINS
--- NOTE | 2023-02-14 18:45 | NUR ---
CALLED [facility] AGAIN AND PER REP TRANSPORT SHOULD ARRIVE IN 10 MINUTES
--- NOTE | 2023-02-14 19:14 | NUR ---
PATIENT PICKED UP BY [facility] IN STABLE CONDITION TO BE TRANSPORTED TO [facility]
== END 2023-02-14 19:15 | DRG 871 ==
LOC: MED 18:49 → MTU 22:48 → OBSVTOIN 22:48 → MTU 02-14 08:03
PROVIDERS: ADMIT Student in an Organized Health Care Education/Training Program; ATTEND Student in an Organized Health Care Education/Training Program
DX: A41.9 Sepsis, unspecified organism (principal); G93.41 Metabolic encephalopathy; N39.0 Urinary tract infection, site not specified; E44.0 Moderate protein-calorie malnutrition; E87.1 Hypo-osmolality and hyponatremia; Z68.1 Body mass index [BMI] 19.9 or less, adult; K76.82 Hepatic encephalopathy; I10 Essential (primary) hypertension; E03.9 Hypothyroidism, unspecified; E11.40 Type 2 diabetes mellitus with diabetic neuropathy, unspecified; Z20.822 Contact with and (suspected) exposure to COVID-19; F03.90 Unspecified dementia, unspecified severity, without behavioral disturbance, psychotic disturbance, mood disturbance, and anxiety; K59.00 Constipation, unspecified; Z95.0 Presence of cardiac pacemaker; Z79.1 Long term (current) use of non-steroidal anti-inflammatories (NSAID); Z79.899 Other long term (current) drug therapy
CPT/HCPCS: 36415; 70450; 71045; 80048; 80053; 81001; 82140; 83036; 83605; 83735; 83880; 84100; 84443; 84484; 85025; 85610; 87040; 87081; 87086; 92526; 92610; 93005; 93880; 96361; 96365; 97110; 97112; 97530; 99285; C9113; J0696; J1644; J1815; J2405; J7060; Q0092

== ENCOUNTER 2023-02-23 11:47 | Inpatient (IN) | payer OTHER ==
[~2023-02-23] VITALS: Ht 170.2 cm; Wt 59.0 kg
[~2023-02-23 11:47] MED LIST changes: +LACT10SO11 PO; +RIFA550T PO; +SYN.1 PO
--- NOTE | 2023-02-23 11:51 | NUR ---
BIBA BLS TO ER BED 9
[2023-02-23 11:54] VITALS: BP 113/55; PULSE 95; RESP 12; TEMP 98; O2SAT 95
--- NOTE | 2023-02-23 12:30 | NUR ---
PT TAKEN TO RADIOLOGY FOR CT VIA ERIC
[2023-02-23 12:48] LABS: BASOPHILS % (AUTO) 0.4 % (0.0-2.0); EOSINOPHILS # (AUTO) 0.2 K/uL (0-0.4); EOSINOPHILS % (AUTO) 5.1 % (0.0-4.0); HEMATOCRIT 24.8 % (36-52); HEMOGLOBIN 8.4 g/dL (12.0-18.0); LYMPHOCYTES % (AUTO) 30.7 % (20.5-51.1); MEAN CORPUSCULAR HEMOGLOBIN 34 pg (27-31); MEAN CORPUSCULAR HGB CONC 34 g/dL (33-37); MEAN CORPUSCULAR VOLUME 99.8 fL (80-94); MONOCYTES # (AUTO) 0.1 K/uL (0.8-1.0); MONOCYTES % (AUTO) 3.4 % (1.7-9.3); NEUTROPHILS # (AUTO) 1.9 K/uL (1.8-7.7); NEUTROPHILS % (AUTO) 60.4 % (42.2-75.2); PLATELET COUNT (AUTO) 50 K/uL (140-450); RED BLOOD CELL COUNT(AUTO) 2.48 MIL/uL (4.20-6.10); RED CELL DISTRIBUTION WIDTH 29.4 % (11.6-13.7); WHITE BLOOD COUNT (AUTO) 3.1 K/uL (4.8-10.8)
--- NOTE | 2023-02-23 13:05 | NUR ---
OBTAINED URINE SAMPLE VIA STRAIGHT CATH BY MD SANTANA
[2023-02-23 13:14] LABS: APPEARANCE,URINE CLOUDY (CLEAR); BILIRUBIN,URINE 1+ (NEGATIVE); BLOOD, URINE 3+ (NEGATIVE); COLOR,URINE BROWN (YELLOW); LEUKOCYTE ESTERASE ,URINE TRACE (NEGATIVE); NITRITE, URINE POSITIVE (NEGATIVE); PH,URINE 8.5 (5.0-9.0); UGLUCOSE NEGATIVE (NEGATIVE)
[2023-02-23 13:20] LABS: RBC,URINE >100 /HPF (0-5)
--- NOTE | 2023-02-23 13:29 | NUR ---
PT TAKEN TO RADIOLOGY VIA ERIC
--- NOTE | 2023-02-23 13:30 | NUR ---
CRITICAL LAB VALUE AMMONIA 165. NOTIFIED , NEW ORDER FOR LACTULOSE TO BE PLACED.
[2023-02-23] MEDS ORDERED: NACL 0.9% 2,000 ML IV SCH (13:40)
[2023-02-23] MEDS ORDERED: metroNIDAZOLE 500 MG/NS PREMIX 100 ML IV ONE (13:40)
[2023-02-23] MEDS ORDERED: cefTRIAXone 1,000 MG VIAL ONE (13:43)
[2023-02-23 13:44] LABS: ACETAMINOPHEN 3.1 ug/ml (10-30); ALBUMIN 2.1 g/dL (3.4-5.0); ANION GAP 12.7 (8-16); ASPARTATE AMINOTRANSFERASE 43 U/L (15-37); CARBON DIOXIDE 20.9 mmol/L (21-32); CHLORIDE 105 mmol/L (98-107); FREE T4 (FREE THYROXINE) 0.93 ng/dL (0.76-1.46); GLUCOSE 144 mg/dL (74-106); POTASSIUM 4.6 mmol/L (3.5-5.1); SODIUM SERUM 134 mmol/L (136-145); THYROID STIMULATING HORMONE 40.53 uIU/mL (0.34-3.74); TOTAL BILIRUBIN 0.7 mg/dL (0.0-1.0); UREA NITROGEN, BLOOD 25 mg/dL (7-18)
[2023-02-23 13:50] LABS: SALICYLATE < 2.8 mg/dL (2.8-20.0)
[2023-02-23] MEDS ORDERED: LACTULOSE 20 GM/30 ML UDC PO ONE (14:10)
--- NOTE | 2023-02-23 14:30 | NUR ---
PICTURES TAKEN FOR WOUNDS
--- NOTE | 2023-02-23 15:00 | NUR ---
PT RESTING COMFORTABLY, NO SIGNS OF DISTRESS NOTED
--- NOTE | 2023-02-23 15:56 | NUR ---
Patient will be admitted to care of DR. JIMENEZ. Admited to TELE. Will go to room 123A. Belongings list completed. Report to VELIA AVILEZ.
--- NOTE | 2023-02-23 16:19 | NUR ---
RECEIVE CONFUSED PATIENT FROM ER NURSE FOR CHANGE IN MENTAL STATUS & CURRENT DIAGNOSIS WITH SBO W/ HEPATIC ENCEPHALOPATHY. 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 HEEL PROTECTING FORM PRESENT. VITAL WITHIN PATIENT'S BASELINE (T-P-R: 97.8-84-20; BP: 143/73, O2 SAT 98% IN RM) TEL. MONITOR ADMISSION STRIP SHOWS A. FIB. CONTACT PCP, DR. JIMENEZ FOR AMMONIA =[phone] RECEIVE ORDERS AND CODE STATUS FULL CODE AT THIS JASON. WILL CONTINUE TO MONITOR
[2023-02-23 16:58] LABS: FREE T4 (FREE THYROXINE) 0.91 ng/dL (0.76-1.46); THYROID STIMULATING HORMONE 34.83 uIU/mL (0.34-3.74)
[2023-02-23 17:00] VITALS: BP 143/73; PULSE 84; RESP 20; TEMP 97.8; O2SAT 98
[2023-02-23] MEDS: LACTULOSE 20 GM/30 ML UDC PO SCH (17:16)
[2023-02-23] MEDS: DEXT 5% / NACL 0.45% 1,000 ML IV SCH (17:17)
[2023-02-23 19:25] VITALS: PULSE 84; RESP 20; O2SAT 98
--- NOTE | 2023-02-23 19:25 | NUR ---
RECEIVED PT FROM AM NURSE FOR CONTINUITY OF CARE. PT IS STABLE
[2023-02-23 20:00] VITALS: BP 135/52; PULSE 85; PULSE 88; RESP 18; TEMP 98.5; O2SAT 96
[2023-02-23] MEDS ORDERED: HYDROcodone/APAP 5/325 MG 1 TAB TAB PO PRN (20:00)
[2023-02-23] MEDS ORDERED: MORPHINE SULFATE 2 MG/ML SYR IVP PRN (20:00)
[2023-02-23] MEDS: RIFAXIMIN 550 MG TAB PO SCH (20:09)
[2023-02-23] MEDS: traZODone 50 MG TAB PO SCH (20:34)
--- NOTE | 2023-02-23 22:30 | NUR ---
INSERTED NG TUBE 14 FR PER MD ORDER,TOLERATED WELL
--- NOTE | 2023-02-23 23:45 | NUR ---
XRAY DONE TO CONFIRM NGT PLACEMENT , AWAITING RESULT
[2023-02-24] VITALS: BP 125/52; PULSE 85; PULSE 94; RESP 18; TEMP 97.6; O2SAT 98
[2023-02-24 04:00] VITALS: BP 106/55; PULSE 66; PULSE 72; RESP 18; TEMP 98.5; O2SAT 99
[2023-02-24] MEDS: DEXT 5% / NACL 0.45% 1,000 ML IV SCH ×2 (05:46→19:45)
--- NOTE | 2023-02-24 07:20 | NUR ---
RECEIVED PT FROM NETWORK SECURITY ADMINISTRATOR NURSE FOR CONTINUITY OF CARE. PT IN BED SLEEPING, VISIBLE CHEST RISE/FALL. RESPIRATIONS EVEN AND UNLABORED ON RA. NGT IN PLACE. IVF INFUSING AT R HAND IV 20G. IV PATENT. ALL SAFETY PRECAUTIONS IN PLACE. CALL LIGHT WITHIN REACH.
[2023-02-24 08:00] VITALS: BP 110/45; PULSE 60; PULSE 72; RESP 18; TEMP 97.8; O2SAT 99
[2023-02-24] MEDS: RIFAXIMIN 550 MG TAB PO SCH ×2 (08:55→20:24)
[2023-02-24] MEDS: LACTULOSE 20 GM/30 ML UDC PO SCH ×3 (08:55→16:01)
--- NOTE | 2023-02-24 08:55 | NUR ---
ADMINISTERED SCHEDULED MEDS. PT TOLERATING WELL.
--- NOTE | 2023-02-24 08:56 | NUR ---
PATIENT HAS BEEN SCREENED AND CATEGORIZED MODERATE NUTRITION RISK. PATIENT WILL BE SEEN WITHIN 3-5 DAYS OF ADMISSION. 02/26/23-02/28/[address]
--- NOTE | 2023-02-24 09:00 | NUR ---
Patient's Plan of Care was discussed and reviewed with SUPERVISOR TRANSCRIBING OPERATORS:
--- NOTE | 2023-02-24 11:35 | NUR ---
I attempted to complete a discharge assessment with the patient, however I was unable to arouse him. I called and left a message for the son, Jani. I requested he return my call at his earliest convenience.
[2023-02-24 12:00] VITALS: BP 95/47; PULSE 61; PULSE 66; RESP 18; TEMP 97.1; O2SAT 99
--- NOTE | 2023-02-24 13:20 | NUR ---
PT CHANGED. PT URINE FOUL SMELL WITH BLOOD, DR JIMENEZ INFORMED OF FINDING. NO NEW ORDERS.
[2023-02-24 15:26] LABS: BASOPHILS % (AUTO) 0.4 % (0.0-2.0); EOSINOPHILS # (AUTO) 0.1 K/uL (0-0.4); EOSINOPHILS % (AUTO) 3.9 % (0.0-4.0); HEMATOCRIT 20.5 % (36-52); HEMOGLOBIN 7.1 g/dL (12.0-18.0); LYMPHOCYTES # (AUTO) 0.8 K/uL (2.0-11.5); LYMPHOCYTES % (AUTO) 26.1 % (20.5-51.1); MEAN CORPUSCULAR HEMOGLOBIN 34 pg (27-31); MEAN CORPUSCULAR HGB CONC 35 g/dL (33-37); MONOCYTES # (AUTO) 0.1 K/uL (0.8-1.0); MONOCYTES % (AUTO) 4.9 % (1.7-9.3); NEUTROPHILS % (AUTO) 64.7 % (42.2-75.2); PLATELET COUNT (AUTO) 51 K/uL (140-450); RED BLOOD CELL COUNT(AUTO) 2.09 MIL/uL (4.20-6.10); RED CELL DISTRIBUTION WIDTH 29.3 % (11.6-13.7)
[2023-02-24 15:36] LABS: ANION GAP 10.8 (8-16); CHLORIDE 109 mmol/L (98-107); CREATININE 0.9 mg/dL (0.6-1.3); GLUCOSE 142 mg/dL (74-106); POTASSIUM 3.8 mmol/L (3.5-5.1); SODIUM SERUM 136 mmol/L (136-145); UREA NITROGEN, BLOOD 23 mg/dL (7-18)
[2023-02-24 16:00] VITALS: BP 120/73; PULSE 65; PULSE 96; RESP 18; TEMP 97.9; O2SAT 100
--- NOTE | 2023-02-24 16:30 | NUR ---
MAKING ROUNDS PT MUMBLING IN SLEEP. CALL LIGHT WITHIN REACH. PT ROOM NEAR NURSE STATION.
--- NOTE | 2023-02-24 19:20 | NUR ---
ENDORSED PT TO OB GYN NURSE FOR CONTINUITY OF CARE.
--- NOTE | 2023-02-24 19:25 | NUR ---
RECEIVED PT FROM AM NURSE FOR CONTINUITY OF CARE. PT IS STABLE
[2023-02-24 19:55] LABS: HEMATOCRIT 19.4 % (36-52); HEMOGLOBIN 6.7 g/dL (12.0-18.0)
[2023-02-24 20:00] VITALS: BP 106/47; PULSE 59; PULSE 67; RESP 18; TEMP 97.5; O2SAT 99
[2023-02-24] MEDS: traZODone 50 MG TAB PO SCH (20:24)
--- NOTE | 2023-02-24 22:35 | NUR ---
STARTED 1 PRBC FOR HGB 7.1
[2023-02-25] VITALS: BP 113/53; PULSE 69; PULSE 71; RESP 18; TEMP 97.8; O2SAT 99
--- NOTE | 2023-02-25 | NUR ---
ORDERED LOYA CATH WITH CONTINUOUS IRRIGATION. NOTED AND CARRIED OUT.
[2023-02-25 03:50] LABS: BASOPHILS % (AUTO) 0.4 % (0.0-2.0); EOSINOPHILS # (AUTO) 0.1 K/uL (0-0.4); EOSINOPHILS % (AUTO) 3.3 % (0.0-4.0); HEMOGLOBIN 8.4 g/dL (12.0-18.0); LYMPHOCYTES # (AUTO) 0.8 K/uL (2.0-11.5); LYMPHOCYTES % (AUTO) 26.6 % (20.5-51.1); MEAN CORPUSCULAR HEMOGLOBIN 32 pg (27-31); MEAN CORPUSCULAR HGB CONC 34 g/dL (33-37); MEAN CORPUSCULAR VOLUME 96.7 fL (80-94); MONOCYTES # (AUTO) 0.2 K/uL (0.8-1.0); NEUTROPHILS # (AUTO) 1.9 K/uL (1.8-7.7); NEUTROPHILS % (AUTO) 63.7 % (42.2-75.2); PLATELET COUNT (AUTO) 45 K/uL (140-450); RED BLOOD CELL COUNT(AUTO) 2.59 MIL/uL (4.20-6.10); RED CELL DISTRIBUTION WIDTH 28.6 % (11.6-13.7); WHITE BLOOD COUNT (AUTO) 2.9 K/uL (4.8-10.8)
[2023-02-25 04:00] VITALS: BP 112/54; PULSE 58; PULSE 60; RESP 18; TEMP 97.9; O2SAT 99
[2023-02-25 04:10] LABS: ALBUMIN 1.9 g/dL (3.4-5.0); ANION GAP 10.4 (8-16); ASPARTATE AMINOTRANSFERASE 47 U/L (15-37); CARBON DIOXIDE 20.5 mmol/L (21-32); CHLORIDE 109 mmol/L (98-107); CREATININE 1.1 mg/dL (0.6-1.3); GLUCOSE 129 mg/dL (74-106); POTASSIUM 3.9 mmol/L (3.5-5.1); SODIUM SERUM 136 mmol/L (136-145); UREA NITROGEN, BLOOD 21 mg/dL (7-18)
--- NOTE | 2023-02-25 07:15 | NUR ---
RECEIVED PT FROM HISTOTECHNICIAN NURSE FOR CONTINUITY OF CARE. PT IN BED WITH EYES CLOSED. VISIBLE CHEST RISE AND FALL. RESPIRATIONS EVEN AND UNLABORED ON RA. CONTINOUS PULSE OX MONITOR PT SATURATION AT 99%. NGT IN PLACE ON INTERMITTENT SUCTION. PT WITH THREE WAY LOYA AND CONTINUOUS IRRIGATION, URINE COLOR LIGHT PINK. IV ON R HAND 20G INFUSING IVF @ 70. CALL LIGHT WITHIN REACH. ALL SAFETY PRECAUTIONS IN PLACE.
--- NOTE | 2023-02-25 07:53 | NUR ---
Patient's Plan of Care was discussed and reviewed with HEATING AND REFRIGERATION INSPECTOR: HEAVENLY
[2023-02-25 08:00] VITALS: BP 114/59; PULSE 69; PULSE 75; RESP 18; TEMP 97.1; O2SAT 98
[2023-02-25] MEDS: RIFAXIMIN 550 MG TAB PO SCH ×2 (09:37→21:00)
[2023-02-25] MEDS: FERROUS GLUCONATE 324 MG TAB PO SCH (09:37)
[2023-02-25] MEDS: GABAPENTIN 300 MG CAP PO SCH ×2 (09:37→21:00)
[2023-02-25] MEDS: TAMSULOSIN 0.4 MG CAP PO SCH (09:37)
[2023-02-25] MEDS: FINASTERIDE 5 MG TAB PO SCH (09:37)
--- NOTE | 2023-02-25 09:37 | NUR ---
ALL SCHEDULED MORNING MEDS GIVEN. PT TOLERATING WELL. NGT TUBE CLAMPED.
[2023-02-25] MEDS: LACTULOSE 20 GM/30 ML UDC PO SCH ×3 (09:38→16:10)
[2023-02-25] MEDS: DEXT 5% / NACL 0.45% 1,000 ML IV SCH (09:48)
--- NOTE | 2023-02-25 11:33 | NUR ---
Raw Stock Drier Tender Pt. came from [facility] on 02/24. He has been there since 02/14/22.As per facility Rn, pts. level of functioning is extensive, needs a lot of help to turn , walk with assist, is working with rehab. As per Rn So, pt had been AOx2 and x3 but when pt. left for the hospital he was not alert. Pt. has unspecified Dementia without disturbance. . Pt was admitted for small bowel obstruction.
--- NOTE | 2023-02-25 11:42 | NUR ---
PT DAUGHTER DREW CALLED FOR AN UPDATE. UPDATE GIVEN.
--- NOTE | 2023-02-25 13:52 | NUR ---
DC PLANNING A 77 YEAR OLD MALE PATIENT TRANSFERRED FROM [facility] DUE TO CHANGE IN MENTAL STATUS.HX OF DEMENTIA,HTN,BPH AND HYPOTHYROIDISM.CT OF HEAD SHOWS ATROPHY.ABDOMINAL X-RAY SHOWS DISTAL SMALL BOWEL OBSTRUCTION.SMALL BOWEL FOLLOW THRU REQUESTED.NGT TO SURGERY CONSULTED.ON ROCEPHIN FOR UTI. 1 UNIT PRBC GIVEN FOR HGB 6.7.LATEST 8.4.DC PLAN - BACK TO SNF WHEN PATIENT CONDITION IMPROVES.CM TO FOLLOW. Addendum: 02/28/23 at 1022 by CRISTIAN CEDENO CM RECEIVED ORDER FOR PATIENT TO GO BACK TO SNF FOR CONTINUE OF CARE. FAXED ALL PAPERWORK TO [facility]. WILL FOLLOW UP WITH MORE INFO. Addendum: 02/28/23 at 1110 by CRISTIAN CEDENO CM SPOKE WITH [facility] LOCATED AT [address] [place] [id number]. PATIENT WILL BE GOING TO ROOM 18-B UNDER DR QIU. TRANSPORTATION WAS ARRANGED WITH [facility] FOR A 1500 ESTIMATOR PROJECT MANAGER TIME CONFIRMATION #[id number]. NURSE KIMMY AND PTN DAUGHTER DREW ARE AWARE OF THE ABOVE INFORMATION.
[2023-02-25] MEDS: MUPIROCIN CA NASAL 2% 1GM TUBE NS SCH (14:32)
[2023-02-25] MEDS: CHLORHEXADINE GLUC 2% CLOTH TP SCH (14:32)
--- NOTE | 2023-02-25 14:56 | NUR ---
02/25/23 RD INITIAL ASSESSMENT COMPLETED PLEASE REFER TO NUTRITION ASSESSMENT UNDER CARE ACTIVITY FOR ESTIMATED NUTRITIONAL NEEDS. 1. CONTINUE CLEAR LIQUID, LOW SODIUM DIET TOLERATED AND ONCE MEDICALLY APPROPRIATE ADVANCE TO FULL LIQUID DIET, LOW SODIUM 2. RD WILL CONTINUE TO MONITOR PO INTAKE, WEIGHT, GI ISSUES AND NUTRITION RELATED LAB VALUES. 3. RD TO FOLLOW-UP 3-5 DAYS, MODERATE RISK DIVYA WALTON, SHINE
[2023-02-25 16:00] VITALS: BP 124/63; PULSE 72; RESP 18; TEMP 97.9; O2SAT 97
--- NOTE | 2023-02-25 17:20 | NUR ---
NGT REMOVED. PT TOLERATING WELL.
--- NOTE | 2023-02-25 19:10 | NUR ---
ENDORSED PT TO CERTIFIED PERFORMANCE TECHNOLOGIST NURSE FOR CONTINUITY OF CARE. PT IS STABLE.
--- NOTE | 2023-02-25 19:15 | NUR ---
RECEIVED PATIENT REPORT FROM TATUM ALONZO FOR CONTINUITY OF CARE.PATIENT IS STABLE IN BED, AOX1 RA/96. NO APPARENTS/SX OF DISTRESS. IV RT 20G. SKIN IS INTACT ON UPPER EXTREMITY, SCABS ON BOTH LEGS. SIDE RALES UP X2, CALL LIGHT WITHIN REACH , WILL CONTINUE TO MONITOR
[2023-02-25 20:00] VITALS: PULSE 78; RESP 19; O2SAT 96
--- NOTE | 2023-02-25 20:00 | NUR ---
Patient's Plan of Care was discussed and reviewed with GAUDENCIO WINN:
[2023-02-25] MEDS: traZODone 50 MG TAB PO SCH (21:00)
--- NOTE | 2023-02-25 21:57 | NUR ---
PATIENT REFUSED TO DRINK SMALL AMOUNT OF WATER, PATIENT ALSO REFUSED TO TAKE HIS SCHEDULED MEDICATIONS. PATIENT HAS NO S/SX OF ACUTE DISTRESS. RESPIRATION EVEN AND UNLABORED. ALL SAFETY MEASURES IN PLACE. BED IN LOW LOCKED POSITION. CALL LIGHT WITHIN REACH. WILL CONTINUE TO MONITOR.
[2023-02-26] VITALS: BP 132/62; PULSE 75; RESP 20; TEMP 98; O2SAT 98
--- NOTE | 2023-02-26 00:16 | NUR ---
PATIENT'S DAUGHTER CALLED FOR UPDATES REGARDING HIS FATHER'S SITUATION. PATIENT ASLEEP AND NO S/SX OF ACUTE DISTRESS. CALL LIGHT WITHIN REACH AND WILL CONTINUE TO MONITOR
[2023-02-26] MEDS: DEXT 5% / NACL 0.45% 1,000 ML IV SCH ×3 (02:16→17:41)
[2023-02-26 05:31] LABS: BASOPHILS % (AUTO) 0.5 % (0.0-2.0); EOSINOPHILS # (AUTO) 0.2 K/uL (0-0.4); HEMATOCRIT 23.2 % (36-52); HEMOGLOBIN 8.1 g/dL (12.0-18.0); LYMPHOCYTES # (AUTO) 0.8 K/uL (2.0-11.5); LYMPHOCYTES % (AUTO) 34.7 % (20.5-51.1); MEAN CORPUSCULAR HEMOGLOBIN 33 pg (27-31); MEAN CORPUSCULAR HGB CONC 35 g/dL (33-37); MEAN CORPUSCULAR VOLUME 94.7 fL (80-94); MONOCYTES # (AUTO) 0.2 K/uL (0.8-1.0); MONOCYTES % (AUTO) 7.8 % (1.7-9.3); NEUTROPHILS # (AUTO) 1.1 K/uL (1.8-7.7); PLATELET COUNT (AUTO) 46 K/uL (140-450); RED BLOOD CELL COUNT(AUTO) 2.45 MIL/uL (4.20-6.10); RED CELL DISTRIBUTION WIDTH 28.7 % (11.6-13.7); WHITE BLOOD COUNT (AUTO) 2.3 K/uL (4.8-10.8)
[2023-02-26 06:06] LABS: ALBUMIN 1.8 g/dL (3.4-5.0); ANION GAP 13.5 (8-16); ASPARTATE AMINOTRANSFERASE 46 U/L (15-37); CHLORIDE 106 mmol/L (98-107); CREATININE 0.9 mg/dL (0.6-1.3); GLUCOSE 126 mg/dL (74-106); POTASSIUM 3.5 mmol/L (3.5-5.1); SODIUM SERUM 134 mmol/L (136-145); TOTAL BILIRUBIN 0.8 mg/dL (0.0-1.0); UREA NITROGEN, BLOOD 14 mg/dL (7-18)
[2023-02-26] MEDS: LEVOTHYROXINE 0.1 MG TAB PO SCH (06:30)
--- NOTE | 2023-02-26 07:15 | NUR ---
RECEIVED PT FROM KIER TENDER FOR CONTINUITY OF CARE. AWAKE, ALERT X 1. RESP. EVEN AND UNLABORED. ON ROOM AIR. F/C INTACT DRAINING YELLOW URINE. NO C/O PAIN OR DISCOMFORT. IVF INFUSING WELL. NO C/O PAIN OR DISCOMFORT. CALL LIGHT KEPT WITHIN REACH. WILL CONTINUE TO MONITOR.
--- NOTE | 2023-02-26 07:20 | NUR ---
ENDORSED PATIENT TO TATUM MARTNIEZ FOR CONTINUITY OF CARE
[2023-02-26 08:00] VITALS: BP 125/64; PULSE 72; RESP 18; TEMP 98.6; O2SAT 96; O2SAT 97
[2023-02-26] MEDS: TAMSULOSIN 0.4 MG CAP PO SCH (09:02)
[2023-02-26] MEDS: LACTULOSE 20 GM/30 ML UDC PO SCH ×3 (09:02→17:47)
[2023-02-26] MEDS: FERROUS GLUCONATE 324 MG TAB PO SCH (09:03)
[2023-02-26] MEDS: GABAPENTIN 300 MG CAP PO SCH ×2 (09:03→20:35)
[2023-02-26] MEDS: RIFAXIMIN 550 MG TAB PO SCH ×2 (09:03→20:34)
[2023-02-26] MEDS: FINASTERIDE 5 MG TAB PO SCH (09:03)
--- NOTE | 2023-02-26 09:03 | NUR ---
SCHEDULED MEDICATIONS GIVEN. TOLERATED WELL.
--- NOTE | 2023-02-26 10:21 | NUR ---
ROCEPHIN IV WAS GIVEN KASIA AVILEZ. TOLERATED WELL.
[2023-02-26] MEDS ORDERED: ONDANSETRON 4 MG/2 ML VIAL IVP PRN (13:00)
[2023-02-26] MEDS: MUPIROCIN CA NASAL 2% 1GM TUBE NS SCH (13:51)
[2023-02-26] MEDS: CHLORHEXADINE GLUC 2% CLOTH TP SCH (13:51)
[2023-02-26 16:00] VITALS: BP 107/50; PULSE 75; RESP 18; TEMP 98.9; O2SAT 97
--- NOTE | 2023-02-26 17:47 | NUR ---
LACTULOSE PO WAS GIVEN. TOLERATED WELL.
--- NOTE | 2023-02-26 19:20 | NUR ---
BEDSIDE REPORT GIVEN TO GASTROENTEROLOGY NURSE PRACTITIONER FOR CONTINUITY OF CARE. REMAINS STABLE.
--- NOTE | 2023-02-26 19:21 | NUR ---
RECEIVED PT FROM MORNING SHIFT NURSE. PT IS AOX2-3, BEDBOUND, ABLE TO VERBALIZE NEEDS AND ABLE TO FOLLOW COMMANDS. PT IS ON ROOM AIR AND ON CLEAR LIQUID DIET. PT IV ON RIGHT HAND GAUGE 20, RUNNING WITH D5 1/2 NS AT 75ML/HR. PT HAS SKIN TEAR ON PENIS AND OLD CLOSE SCAB ON BILATERAL LOWER EXTREMITIES. NO COMPLAIN OF PAIN AND NO S/S OF RESPIRATORY DISTRESS NOTED. ALL SAFETY MEASURES IMPLEMENTED, BED IN LOW POSITION, BED WHEELS ON LOCK AND CALL LIGHT WITHIN REACH.
[2023-02-26 20:00] VITALS: PULSE 76; RESP 19; TEMP 97.7; O2SAT 97
[2023-02-26] MEDS: traZODone 50 MG TAB PO SCH (20:35)
--- NOTE | 2023-02-26 20:35 | NUR ---
ALL SCHEDULED AND PRESCRIBED MEDICATION WAS GIVEN TO PT PER MD ORDER. ALL SAFETY MEASURES IMPLEMENTED, BED IN LOW POSITION, BED WHEELS ON LOCK AND CALL LIGHT WITHIN REACH.
--- NOTE | 2023-02-26 22:00 | NUR ---
WARM BLANKET WAS GIVEN TO PT PER REQUEST. NO COMPLAIN OF PAIN AND NO S/S OF RESPIRATORY DISTRESS NOTED. ALL SAFETY MEASURES IMPLEMENTED. BED IN LOW POSITION, BED WHEELS ON LOCK AND CALL LIGHT WITHIN REACH.
[2023-02-27] VITALS: BP 98/55; PULSE 76; RESP 19; TEMP 97.7; O2SAT 97
--- NOTE | 2023-02-27 | NUR ---
PT IS ON SLEEP. CHEST RISE AND FALL SYMMETRICALLY NOTED. RESPIRATION IS EVEN AND UNLABORED. ALL SAFETY MEASURES IMPLEMENTED. BED IN LOW POSITION, BED WHEELS ON LOCK AND CALL LIGHT WITHIN REACH.
--- NOTE | 2023-02-27 02:00 | NUR ---
CHECKED THE PT, STILL ON SLEEP. CHEST RISE AND FALL SYMMETRICALLY NOTED. RESPIRATION IS EVEN AND UNLABORED. ALL SAFETY MEASURES IMPLEMENTED. BED IN LOW POSITION, BED WHEELS ON LOCK AND CALL LIGHT WITHIN REACH.
--- NOTE | 2023-02-27 04:00 | NUR ---
MORNING CARE WAS DONE TO PT. CHANGED GOWN, LINENS, BLANKET, CHUCKS AND EMPTY THE LOYA CATHETER WITH OUTPUT OF 1,225 ML. NO COMPLAIN OF PAIN. NO S/S OF RESPIRATORY DISTRESS NOTED. ALL SAFETY MEASURES IMPLEMENTED. BED IN LOW POSITION, BED WHEELS ON LOCK AND CALL LIGHT WITHIN REACH.
[2023-02-27] MEDS: ACETAMINOPHEN 325 MG TAB PO PRN ×2 (05:11→21:23)
--- NOTE | 2023-02-27 05:11 | NUR ---
PT WAS GIVEN PRN TYLENOL DUE TO BILATERAL FEET PAIN WITH PAIN SCALE OF 3/10. ALL SAFETY MEASURES IMPLEMENTED. BED IN LOW POSITION, BED WHEELS ON LOCK AND CALL LIGHT WITHIN REACH.
[2023-02-27 05:20] LABS: EOSINOPHILS # (AUTO) 0.2 K/uL (0-0.4); HEMOGLOBIN 7.9 g/dL (12.0-18.0); LYMPHOCYTES # (AUTO) 0.7 K/uL (2.0-11.5); LYMPHOCYTES % (AUTO) 45.2 % (20.5-51.1); MEAN CORPUSCULAR HEMOGLOBIN 33 pg (27-31); MEAN CORPUSCULAR HGB CONC 34 g/dL (33-37); MEAN CORPUSCULAR VOLUME 96.7 fL (80-94); MONOCYTES # (AUTO) 0.1 K/uL (0.8-1.0); MONOCYTES % (AUTO) 7.3 % (1.7-9.3); NEUTROPHILS # (AUTO) 0.5 K/uL (1.8-7.7); NEUTROPHILS % (AUTO) 35.5 % (42.2-75.2); PLATELET COUNT (AUTO) 37 K/uL (140-450); RED BLOOD CELL COUNT(AUTO) 2.37 MIL/uL (4.20-6.10); RED CELL DISTRIBUTION WIDTH 27.8 % (11.6-13.7)
[2023-02-27 05:28] LABS: ALBUMIN 1.8 g/dL (3.4-5.0); ASPARTATE AMINOTRANSFERASE 42 U/L (15-37); CARBON DIOXIDE 19.4 mmol/L (21-32); CHLORIDE 110 mmol/L (98-107); CREATININE 0.9 mg/dL (0.6-1.3); GLUCOSE 139 mg/dL (74-106); POTASSIUM 3.4 mmol/L (3.5-5.1); SODIUM SERUM 138 mmol/L (136-145); TOTAL BILIRUBIN 0.5 mg/dL (0.0-1.0); UREA NITROGEN, BLOOD 9 mg/dL (7-18)
[2023-02-27 05:35] LABS: WHITE BLOOD COUNT (AUTO) 1.5 K/uL (4.8-10.8)
--- NOTE | 2023-02-27 05:38 | NUR ---
NOTIFIED DR. GREWAL THAT PT HAS CRITICAL LAB OF WBC-1.5 AND PLATELET 37. DOCTOR ACKNOWLEDGED IT AND NO NEW ORDER MADE.
[2023-02-27] MEDS: LEVOTHYROXINE 0.1 MG TAB PO SCH (05:48)
--- NOTE | 2023-02-27 05:48 | NUR ---
SCHEDULED AND PRESCRIBED MEDICATION WAS GIVEN TO PT PER MD ORDER. ALL SAFETY MEASURES IMPLEMENTED. BED IN LOW POSITION, BED WHEELS ON LOCK AND CALL LIGHT WITHIN REACH.
--- NOTE | 2023-02-27 05:54 | NUR ---
DR. GREWAL ORDER NEUTROPENIC PRECAUTION FOR THE PT. ORDER WAS MADE AND CARRIED OUT.
--- NOTE | 2023-02-27 07:04 | NUR ---
RECEIVED PT FROM NIGHT NURSE FOR CONTINUITY OF CARE. AWAKE, ALERT X 2. SKIN DRY AND WARM TO TOUCH. ON ROOM AIR. F/C INTACT DRAINING SHARIF COLORED URINE. NO C/O PAIN OR DISCOMFORT. IVF INFUSING WELL. NO C/O PAIN OR DISCOMFORT. CALL LIGHT KEPT WITHIN REACH. WILL CONTINUE TO MONITOR.
--- NOTE | 2023-02-27 07:04 | NUR ---
PT IS STABLE. ENDORSED PT TO MORNING SHIFT NURSE FOR CONTINUITY OF CARE.
[2023-02-27 08:00] VITALS: BP 103/50; PULSE 70; RESP 18; TEMP 96.3; O2SAT 99
[2023-02-27] MEDS: FINASTERIDE 5 MG TAB PO SCH (09:08)
[2023-02-27] MEDS: TAMSULOSIN 0.4 MG CAP PO SCH (09:08)
[2023-02-27] MEDS: RIFAXIMIN 550 MG TAB PO SCH ×2 (09:08→21:22)
[2023-02-27] MEDS: FERROUS GLUCONATE 324 MG TAB PO SCH (09:09)
[2023-02-27] MEDS: GABAPENTIN 300 MG CAP PO SCH ×2 (09:09→21:22)
--- NOTE | 2023-02-27 09:09 | NUR ---
SCHEDULED MEDICATIONS GIVEN. TOLERATED WELL.
[2023-02-27] MEDS: LACTULOSE 20 GM/30 ML UDC PO SCH ×3 (09:10→17:56)
[2023-02-27] MEDS ORDERED: POTASSIUM CHLORIDE 10 MEQ TABER PO SCH (13:44)
[2023-02-27] MEDS ORDERED: POTASSIUM CHLORIDE 20% 40 MEQ/15 ML UDC PO SCH (13:55)
--- NOTE | 2023-02-27 14:08 | NUR ---
SCHEDULED MEDICATIONS AND POTASSIUM CHLORIDE ONCE WAS GIVEN. TOLERATED WELL.
[2023-02-27] MEDS: MUPIROCIN CA NASAL 2% 1GM TUBE NS SCH (14:09)
[2023-02-27] MEDS: CHLORHEXADINE GLUC 2% CLOTH TP SCH (14:09)
[2023-02-27 16:00] VITALS: BP 103/54; PULSE 80; RESP 18; TEMP 97.5; O2SAT 99
--- NOTE | 2023-02-27 19:20 | NUR ---
BEDSIDE REPORT GIVEN TO PERINATAL DIRECTOR FOR CONTINUITY OF CARE. REMAINS STABLE.
[2023-02-27 20:00] VITALS: BP 144/66; PULSE 77; RESP 18; TEMP 98.6; O2SAT 99
[2023-02-27] MEDS: traZODone 50 MG TAB PO SCH (21:22)
[2023-02-28 04:00] VITALS: BP 127/49; PULSE 65; RESP 17; TEMP 98.2; O2SAT 98
[2023-02-28] MEDS: LEVOTHYROXINE 0.1 MG TAB PO SCH (06:14)
--- NOTE | 2023-02-28 06:19 | NUR ---
CHG AND CATHETER CARE GIVEN
[2023-02-28 08:00] VITALS: BP 104/44; PULSE 65; RESP 17; TEMP 97; O2SAT 98
[2023-02-28] MEDS ORDERED: IV rocephin IV (10:01)
[2023-02-28 10:24] LABS: BASOPHILS % (AUTO) 1.2 % (0.0-2.0); EOSINOPHILS # (AUTO) 0.1 K/uL (0-0.4); EOSINOPHILS % (AUTO) 10.9 % (0.0-4.0); HEMATOCRIT 21.9 % (36-52); HEMOGLOBIN 7.4 g/dL (12.0-18.0); LYMPHOCYTES # (AUTO) 0.6 K/uL (2.0-11.5); LYMPHOCYTES % (AUTO) 42.9 % (20.5-51.1); MEAN CORPUSCULAR HEMOGLOBIN 33 pg (27-31); MEAN CORPUSCULAR HGB CONC 34 g/dL (33-37); MEAN CORPUSCULAR VOLUME 97.4 fL (80-94); MONOCYTES # (AUTO) 0.1 K/uL (0.8-1.0); MONOCYTES % (AUTO) 7.3 % (1.7-9.3); NEUTROPHILS # (AUTO) 0.5 K/uL (1.8-7.7); NEUTROPHILS % (AUTO) 37.7 % (42.2-75.2); PLATELET COUNT (AUTO) 35 K/uL (140-450); RED BLOOD CELL COUNT(AUTO) 2.25 MIL/uL (4.20-6.10); RED CELL DISTRIBUTION WIDTH 27.9 % (11.6-13.7)
[2023-02-28 10:30] LABS: WHITE BLOOD COUNT (AUTO) 1.3 K/uL (4.8-10.8)
[2023-02-28 10:44] LABS: ALBUMIN 1.7 g/dL (3.4-5.0); ANION GAP 13.4 (8-16); ASPARTATE AMINOTRANSFERASE 37 U/L (15-37); CARBON DIOXIDE 18.3 mmol/L (21-32); CHLORIDE 108 mmol/L (98-107); CREATININE 0.9 mg/dL (0.6-1.3); GLUCOSE 142 mg/dL (74-106); POTASSIUM 3.7 mmol/L (3.5-5.1); SODIUM SERUM 136 mmol/L (136-145); TOTAL BILIRUBIN 0.3 mg/dL (0.0-1.0); UREA NITROGEN, BLOOD 5 mg/dL (7-18)
[2023-02-28] MEDS: LACTULOSE 20 GM/30 ML UDC PO SCH ×2 (10:51→13:00)
[2023-02-28] MEDS: TAMSULOSIN 0.4 MG CAP PO SCH (10:52)
[2023-02-28] MEDS: FERROUS GLUCONATE 324 MG TAB PO SCH (10:53)
[2023-02-28] MEDS: FINASTERIDE 5 MG TAB PO SCH (10:53)
[2023-02-28] MEDS: GABAPENTIN 300 MG CAP PO SCH (10:53)
[2023-02-28] MEDS ORDERED: LACTULOSE 20 GM/30 ML UDC PO SCH (13:02)
[2023-02-28 13:45] VITALS: PULSE 59; RESP 17; TEMP 97; O2SAT 98
[2023-02-28] MEDS: MUPIROCIN CA NASAL 2% 1GM TUBE NS SCH (14:00)
[2023-02-28] MEDS: CHLORHEXADINE GLUC 2% CLOTH TP SCH (14:15)
== END 2023-02-28 14:35 | DRG 871 ==
LOC: MED 11:47 → MTU 14:55
PROVIDERS: ADMIT Student in an Organized Health Care Education/Training Program; ATTEND Student in an Organized Health Care Education/Training Program
PROC: 0D9670Z Drainage of Stomach with Drainage Device, Via Natural or Artificial Opening (ICD-10-PCS; principal; 2023-02-23)
PROC: 30233N1 Transfusion of Nonautologous Red Blood Cells into Peripheral Vein, Percutaneous Approach (ICD-10-PCS; 2023-02-24)
DX: A41.9 Sepsis, unspecified organism (principal); G93.41 Metabolic encephalopathy; J69.0 Pneumonitis due to inhalation of food and vomit; K56.609 Unspecified intestinal obstruction, unspecified as to partial versus complete obstruction; N39.0 Urinary tract infection, site not specified; E87.1 Hypo-osmolality and hyponatremia; K76.82 Hepatic encephalopathy; F03.90 Unspecified dementia, unspecified severity, without behavioral disturbance, psychotic disturbance, mood disturbance, and anxiety; I10 Essential (primary) hypertension; K80.20 Calculus of gallbladder without cholecystitis without obstruction; D63.8 Anemia in other chronic diseases classified elsewhere; K74.60 Unspecified cirrhosis of liver; N40.0 Benign prostatic hyperplasia without lower urinary tract symptoms; R31.9 Hematuria, unspecified; E11.9 Type 2 diabetes mellitus without complications; E03.9 Hypothyroidism, unspecified; Z95.0 Presence of cardiac pacemaker
CPT/HCPCS: 36415; 70450; 71045; 74018; 74250; 76770; 80048; 80053; 81001; 82140; 82550; 83605; 84439; 84443; 84484; 85018; 85025; 86886; 86900; 86901; 86920; 87040; 87081; 87086; 93005; 96365; 96367; 99291; G0480; G0482; J0696; J2405; J3490; J7060; P9016; Q0092

== ENCOUNTER 2023-03-12 17:05 | Emergency (ER) | payer OTHER ==
[~2023-03-12] VITALS: Ht 160 cm; Wt 2.3 kg
[~2023-03-12 17:05] MED LIST changes: -CEFP200T20 PO; +IV rocephin IV; -LEVO50CA2 PO; -RIFA550T PO
[2023-03-12 17:38] VITALS: BP 122/65; PULSE 81; RESP 20; TEMP 98.1; O2SAT 96
[2023-03-12 17:40] VITALS: O2SAT 96
--- NOTE | 2023-03-12 17:40 | NUR ---
77YO MALE PT [facility] C/O RL LEG PAIN X3DAYS. REPORTS ONSET AFTER TAKING BATH WITH HOT WATER. PAIN ON TOUCH. RL LEG PRESENTS REDDENED. DENIES N/V/D, FEVER, CHILLS, TAKING MEDICATION OR INJURY. PT AAOX4, HOB POSITIONED PER COMFORT. 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 CALL LIGHT WITHIN REACH. HX: ENCEPHALOPATHY, HYPOTHYROID, HTN, DM, CIRRHOSIS, ANEMIA NKA
[2023-03-12] MEDS ORDERED: BACI-418 TP (18:14)
--- NOTE | 2023-03-12 18:18 | NUR ---
MD DUARTE AT BEDSIDE FOR EVALUATION
--- NOTE | 2023-03-12 18:59 | NUR ---
The patient's care was reviewed and supervised by SUSIE SIDDIQI RN.
--- NOTE | 2023-03-12 19:21 | NUR ---
[facility] CONTACTED AND UPDATED ON PT PENDING [place] ETA. S/W BINDU
--- NOTE | 2023-03-12 19:22 | NUR ---
REPORT GIVEN TO XOCHITL AVILEZ. TRANSFER OF CARE AT THIS TIME
--- NOTE | 2023-03-12 20:38 | NUR ---
TRANSPORTATION ARRIVED. REPORT GIVEN AND FACILITY CALLED TO VERIFY REPORT. TALKED TO FATMATA CARDENAS
[2023-03-12 20:44] VITALS: BP 110/55; PULSE 78; RESP 18; TEMP 98.2; O2SAT 97
--- NOTE | 2023-03-12 20:47 | NUR ---
PT TAKEN BY [facility]
--- NOTE | 2023-03-12 20:47 | NUR ---
Patient discharged with v/s stable. Written and verbal after care instructions given and explained. Patient verbalized understanding. Ambulance Transport with to [facility]. All questions addressed prior to discharge. Advised to follow up with PMD.
== END 2023-03-12 20:47 | disposition home or self-care (01) ==
LOC: MED 17:05
DX: M79.661 Pain in right lower leg (principal); E11.9 Type 2 diabetes mellitus without complications; I10 Essential (primary) hypertension; F03.90 Unspecified dementia, unspecified severity, without behavioral disturbance, psychotic disturbance, mood disturbance, and anxiety; Z79.4 Long term (current) use of insulin; Z79.899 Other long term (current) drug therapy
CPT/HCPCS: 99283

== ENCOUNTER 2023-07-27 23:25 | Inpatient (IN) | payer OTHER ==
[~2023-07-27] VITALS: Ht 175.3 cm; Wt 49.4 kg
[~2023-07-27 23:25] MED LIST changes: +BACI-418 TP; +FINA-54 PO; -FINA5TAB1 PO; +NYST15CR7 TP
[2023-07-27 23:26] VITALS: BP 117/44; PULSE 95; RESP 16; TEMP 99.4; O2SAT 99
[2023-07-27 23:45] VITALS: O2SAT 97
[2023-07-28] MEDS ORDERED: PANTOPRAZOLE 40 MG INJ VIAL IVP ONE (01:10)
[2023-07-28 01:32] LABS: EOSINOPHILS # (AUTO) 0.1 K/uL (0-0.4); LYMPHOCYTES # (AUTO) 0.5 K/uL (2.0-11.5); MONOCYTES # (AUTO) 0.1 K/uL (0.8-1.0); MONOCYTES % (AUTO) 7.3 % (1.7-9.3); NEUTROPHILS # (AUTO) 0.9 K/uL (1.8-7.7); PLATELET COUNT (AUTO) 35 K/uL (140-450)
[2023-07-28 01:45] LABS: BASOPHILS % (AUTO) 0.2 % (0.0-2.0); LYMPHOCYTES % (AUTO) 32.9 % (20.5-51.1); MEAN CORPUSCULAR HEMOGLOBIN 37 pg (27-31); MEAN CORPUSCULAR HGB CONC 35 g/dL (33-37); MEAN CORPUSCULAR VOLUME 107.1 fL (80-94); NEUTROPHILS % (AUTO) 55.6 % (42.2-75.2); RED BLOOD CELL COUNT(AUTO) 1.66 MIL/uL (4.20-6.10); RED CELL DISTRIBUTION WIDTH 13.5 % (11.6-13.7)
[2023-07-28 01:50] LABS: HEMATOCRIT 17.7 % (36-52); HEMOGLOBIN 6.2 g/dL (12.0-18.0); WHITE BLOOD COUNT (AUTO) 1.6 K/uL (4.8-10.8)
[2023-07-28 01:53] LABS: ANION GAP 11.3 (8-16); CALCIUM 8.2 mg/dL (8.5-10.1); CARBON DIOXIDE 26.3 mmol/L (21-32); CHLORIDE 108 mmol/L (98-107); CREATININE 0.9 mg/dL (0.6-1.3); GLUCOSE 194 mg/dL (74-106); POTASSIUM 4.6 mmol/L (3.5-5.1); SODIUM SERUM 141 mmol/L (136-145); UREA NITROGEN, BLOOD 35 mg/dL (7-18)
[2023-07-28 01:58] LABS: ALBUMIN 2.2 g/dL (3.4-5.0); BILIRUBIN,DIRECT 0.2 mg/dL (0.0-0.3); TOTAL BILIRUBIN 0.6 mg/dL (0.0-1.0)
[2023-07-28] MEDS ORDERED: MIRABULK PO (02:04)
[2023-07-28] MEDS ORDERED: [UNRECOGNIZED DRUG - CODE] PO (02:04)
[2023-07-28] MEDS ORDERED: MAGN296S70 PO (02:04)
[2023-07-28] MEDS ORDERED: LIDO15CR2 TP (02:04)
[2023-07-28] MEDS ORDERED: ACET-503 PO (02:04)
[2023-07-28] MEDS ORDERED: TAMS0.4C96 PO (02:04)
[2023-07-28 02:22] LABS: INR 1.15 (0.8-1.2); PARTIAL THROMBOPLASTIN TIME 24.2 secs (22-35.6)
[2023-07-28 03:02] VITALS: O2SAT 97
[2023-07-28] MEDS ORDERED: SENN-73 PO (03:49)
[2023-07-28] MEDS ORDERED: GLYPS RC (03:49)
[2023-07-28] MEDS ORDERED: GABA300C PO (03:49)
[2023-07-28] MEDS ORDERED: ONDA-188 PO (03:49)
[2023-07-28] MEDS ORDERED: NYST-71 TP (03:49)
[2023-07-28] MEDS ORDERED: FINA-54 PO (03:49)
[2023-07-28] MEDS ORDERED: LISI5TAB18 PO (03:49)
[2023-07-28] MEDS ORDERED: CARV3.12 PO (03:49)
[2023-07-28] MEDS ORDERED: LACT10SO11 (03:49)
[2023-07-28] MEDS ORDERED: SYN.1 PO (03:49)
[2023-07-28] MEDS ORDERED: SITA100T8 PO (03:49)
[2023-07-28] MEDS ORDERED: BACI-418 TP (03:49)
[2023-07-28] MEDS ORDERED: OCTREOTIDE ACETATE 1.25 MG in NACL 0.9% 250 ML IV SCH ×2 (05:40→17:05)
[2023-07-28] MEDS ORDERED: DEXTROSE 50% 50 ML SYR IVP PRN (06:30)
[2023-07-28] MEDS ORDERED: PANTOPRAZOLE 80 MG in NACL 0.9% 100 ML IVP SCH (06:30)
[2023-07-28] MEDS ORDERED: PANTOPRAZOLE 40 MG INJ VIAL ONE (08:03)
[2023-07-28] MEDS: BLOOD GLUCOSE MONITORING 1 DEV DEV FS SCH ×4 (08:07→21:01)
[2023-07-28] MEDS: INSULIN LISPRO SLIDING SCALE 100 UNITS/ML VIAL SUBQ PRN ×2 (08:09→18:58)
[2023-07-28] MEDS ORDERED: ONDANSETRON 4 MG/2 ML VIAL IVP PRN (08:20)
[2023-07-28] MEDS ORDERED: ZOLPIDEM 10 MG TAB PO PRN (08:20)
[2023-07-28] MEDS ORDERED: POTASSIUM CHLORIDE 10 MEQ TABER PO PRN (08:20)
[2023-07-28] MEDS ORDERED: MAG SULF 2000 MG/WATER PREMIX 50 ML IV PRN (08:20)
[2023-07-28] MEDS ORDERED: DOCUSATE SODIUM 100 MG GELCAP PO PRN (08:20)
[2023-07-28] MEDS: ACETAMINOPHEN 325 MG TAB PO PRN (09:10)
[2023-07-28] MEDS: DEXT 5% / NACL 0.45% 1,000 ML IV SCH ×2 (16:31→20:48)
[2023-07-28 16:37] VITALS: PULSE 80; RESP 20; O2SAT 98
[2023-07-28 16:42] LABS: ANION GAP 10.2 (8-16); CALCIUM 7.9 mg/dL (8.5-10.1); CARBON DIOXIDE 23.6 mmol/L (21-32); CHLORIDE 110 mmol/L (98-107); CREATININE 0.7 mg/dL (0.6-1.3); GLUCOSE 124 mg/dL (74-106); POTASSIUM 3.8 mmol/L (3.5-5.1); SODIUM SERUM 140 mmol/L (136-145); UREA NITROGEN, BLOOD 30 mg/dL (7-18)
[2023-07-28 16:46] LABS: BASOPHILS % (AUTO) 0.4 % (0.0-2.0); EOSINOPHILS # (AUTO) 0.1 K/uL (0-0.4); EOSINOPHILS % (AUTO) 4.8 % (0.0-4.0); HEMOGLOBIN 8.4 g/dL (12.0-18.0); LYMPHOCYTES # (AUTO) 0.7 K/uL (2.0-11.5); LYMPHOCYTES % (AUTO) 38.6 % (20.5-51.1); MAGNESIUM 1.7 mg/dL (1.8-2.4); MEAN CORPUSCULAR HEMOGLOBIN 35 pg (27-31); MEAN CORPUSCULAR HGB CONC 35 g/dL (33-37); MEAN CORPUSCULAR VOLUME 99.7 fL (80-94); MONOCYTES # (AUTO) 0.1 K/uL (0.8-1.0); NEUTROPHILS # (AUTO) 0.9 K/uL (1.8-7.7); PLATELET COUNT (AUTO) 33 K/uL (140-450); RED BLOOD CELL COUNT(AUTO) 2.41 MIL/uL (4.20-6.10); RED CELL DISTRIBUTION WIDTH 18.2 % (11.6-13.7)
[2023-07-28 16:50] LABS: WHITE BLOOD COUNT (AUTO) 1.8 K/uL (4.8-10.8)
[2023-07-28 16:56] LABS: NEUTROPHILS % (AUTO) 49.2 % (42.2-75.2)
[2023-07-28] MEDS: PANTOPRAZOLE 80 MG in NACL 0.9% 100 ML IVP SCH (17:42)
[2023-07-28 18:23] LABS: INR 1.11 (0.8-1.2); PARTIAL THROMBOPLASTIN TIME 26.4 secs (22-35.6); PROTHROMBIN TIME 11.5 secs (10.8-13.4)
[2023-07-28 20:00] VITALS: BP 110/46; PULSE 98; RESP 18; RESP 19; TEMP 98.2; O2SAT 100; O2SAT 98
[2023-07-28 20:46] VITALS: PULSE 74; RESP 20
[2023-07-28 20:56] VITALS: BP 101/44; PULSE 72; RESP 22; TEMP 98.2; O2SAT 98
[2023-07-28 20:58] VITALS: PULSE 70
[2023-07-29] MEDS: MORPHINE SULFATE 2 MG/ML SYR IVP PRN ×2 (01:34→17:03)
[2023-07-29] MEDS: PANTOPRAZOLE 80 MG in NACL 0.9% 100 ML IVP SCH (04:04)
[2023-07-29] MEDS: BLOOD GLUCOSE MONITORING 1 DEV DEV FS SCH ×4 (06:37→20:31)
[2023-07-29 07:17] LABS: BASOPHILS % (AUTO) 0.3 % (0.0-2.0); EOSINOPHILS % (AUTO) 2.5 % (0.0-4.0); HEMATOCRIT 27.1 % (36-52); HEMOGLOBIN 9.5 g/dL (12.0-18.0); LYMPHOCYTES # (AUTO) 0.6 K/uL (2.0-11.5); MEAN CORPUSCULAR HEMOGLOBIN 35 pg (27-31); MEAN CORPUSCULAR HGB CONC 35 g/dL (33-37); MEAN CORPUSCULAR VOLUME 100.5 fL (80-94); MONOCYTES # (AUTO) 0.1 K/uL (0.8-1.0); MONOCYTES % (AUTO) 3.9 % (1.7-9.3); NEUTROPHILS # (AUTO) 1.1 K/uL (1.8-7.7); NEUTROPHILS % (AUTO) 61.3 % (42.2-75.2); PLATELET COUNT (AUTO) 33 K/uL (140-450); RED CELL DISTRIBUTION WIDTH 18.3 % (11.6-13.7)
[2023-07-29 07:21] LABS: WHITE BLOOD COUNT (AUTO) 1.7 K/uL (4.8-10.8)
[2023-07-29 07:43] LABS: ALANINE AMINOTRANSFERASE 18 U/L (12-78); ALBUMIN 2.1 g/dL (3.4-5.0); ALKALINE PHOSPHATASE 87 U/L (50-136); ANION GAP 11.9 (8-16); ASPARTATE AMINOTRANSFERASE 30 U/L (15-37); CARBON DIOXIDE 24.8 mmol/L (21-32); CHLORIDE 108 mmol/L (98-107); CREATININE 0.9 mg/dL (0.6-1.3); GLUCOSE 127 mg/dL (74-106); POTASSIUM 4.7 mmol/L (3.5-5.1); SODIUM SERUM 140 mmol/L (136-145); TOTAL BILIRUBIN 1.3 mg/dL (0.0-1.0); TOTAL PROTEIN, SERUM 6.2 g/dL (6.4-8.2); UREA NITROGEN, BLOOD 23 mg/dL (7-18)
[2023-07-29 08:00] VITALS: BP 133/86; PULSE 76; RESP 17; TEMP 97.6; O2SAT 97
[2023-07-29] MEDS: DEXT 5% / NACL 0.45% 1,000 ML IV SCH (10:12)
[2023-07-29] MEDS ORDERED: MIDAZOLAM 5 MG/5 ML VIAL ONE (14:15)
[2023-07-29] MEDS ORDERED: fentaNYL citrate 0.05 MG/ML VIAL ONE (14:15)
[2023-07-29] MEDS ORDERED: MIDAZOLAM 2 MG/2 ML VIAL ONE (14:25)
[2023-07-29] MEDS ORDERED: fentaNYL citrate 0.05 MG/ML VIAL IVP ONE (15:05)
[2023-07-29] MEDS ORDERED: MIDAZOLAM 2 MG/2 ML VIAL IVP ONE (15:05)
[2023-07-29] MEDS ORDERED: fentaNYL citrate 0.05 MG/ML VIAL IVP SCH (15:18)
[2023-07-29] MEDS ORDERED: MIDAZOLAM 2 MG/2 ML VIAL IVP SCH (15:19)
[2023-07-29 16:00] VITALS: BP 120/46; PULSE 61; RESP 18; TEMP 97.7; O2SAT 100
[2023-07-29] MEDS: LANSOPRAZOLE 30 MG CAPDR PO SCH (17:01)
[2023-07-29] MEDS: INSULIN LISPRO SLIDING SCALE 100 UNITS/ML VIAL SUBQ PRN ×2 (17:25→20:35)
[2023-07-29 19:46] VITALS: BP 105/42; PULSE 63; RESP 18; TEMP 98.1; O2SAT 100
[2023-07-29 20:00] VITALS: BP 105/42; PULSE 63; RESP 18; TEMP 98.1; O2SAT 100; O2SAT 97
[2023-07-30] MEDS: DEXT 5% / NACL 0.45% 1,000 ML IV SCH ×2 (01:24→15:42)
[2023-07-30] MEDS: ACETAMINOPHEN 325 MG TAB PO PRN ×2 (02:46→23:43)
[2023-07-30 06:25] LABS: BASOPHILS % (AUTO) 0.2 % (0.0-2.0); EOSINOPHILS # (AUTO) 0.1 K/uL (0-0.4); EOSINOPHILS % (AUTO) 6.3 % (0.0-4.0); HEMATOCRIT 26.3 % (36-52); HEMOGLOBIN 9.3 g/dL (12.0-18.0); LYMPHOCYTES # (AUTO) 0.6 K/uL (2.0-11.5); LYMPHOCYTES % (AUTO) 27.8 % (20.5-51.1); MEAN CORPUSCULAR HEMOGLOBIN 35 pg (27-31); MEAN CORPUSCULAR HGB CONC 35 g/dL (33-37); MEAN CORPUSCULAR VOLUME 99.9 fL (80-94); MONOCYTES # (AUTO) 0.1 K/uL (0.8-1.0); MONOCYTES % (AUTO) 6.6 % (1.7-9.3); NEUTROPHILS # (AUTO) 1.3 K/uL (1.8-7.7); NEUTROPHILS % (AUTO) 59.1 % (42.2-75.2); PLATELET COUNT (AUTO) 35 K/uL (140-450); RED BLOOD CELL COUNT(AUTO) 2.63 MIL/uL (4.20-6.10); RED CELL DISTRIBUTION WIDTH 17.7 % (11.6-13.7); WHITE BLOOD COUNT (AUTO) 2.2 K/uL (4.8-10.8)
[2023-07-30 07:01] LABS: ALANINE AMINOTRANSFERASE 12 U/L (12-78); ALBUMIN 2.1 g/dL (3.4-5.0); ALKALINE PHOSPHATASE 74 U/L (50-136); ANION GAP 10.4 (8-16); ASPARTATE AMINOTRANSFERASE 27 U/L (15-37); CALCIUM 7.9 mg/dL (8.5-10.1); CARBON DIOXIDE 24.6 mmol/L (21-32); CHLORIDE 107 mmol/L (98-107); CREATININE 0.8 mg/dL (0.6-1.3); GLUCOSE 135 mg/dL (74-106); SODIUM SERUM 138 mmol/L (136-145); TOTAL BILIRUBIN 0.9 mg/dL (0.0-1.0); TOTAL PROTEIN, SERUM 5.8 g/dL (6.4-8.2); UREA NITROGEN, BLOOD 15 mg/dL (7-18)
[2023-07-30] MEDS: LANSOPRAZOLE 30 MG CAPDR PO SCH ×2 (07:30→16:53)
[2023-07-30] MEDS: BLOOD GLUCOSE MONITORING 1 DEV DEV FS SCH ×4 (07:41→21:30)
[2023-07-30 08:00] VITALS: BP 134/54; PULSE 65; RESP 17; TEMP 97.6; O2SAT 97; O2SAT 98
[2023-07-30] MEDS ORDERED: OMEP40EC23 PO (08:57)
[2023-07-30] MEDS ORDERED: HUMSLIDE SUBQ (08:58)
[2023-07-30] MEDS: INSULIN LISPRO SLIDING SCALE 100 UNITS/ML VIAL SUBQ PRN ×2 (12:15→16:59)
[2023-07-30 16:00] VITALS: BP 121/47; PULSE 68; RESP 17; TEMP 97.9; O2SAT 98
[2023-07-30 18:58] VITALS: BP 121/54; PULSE 68; RESP 17; TEMP 97.9
[2023-07-30 20:00] VITALS: BP 119/49; PULSE 70; RESP 18; TEMP 97.7; O2SAT 99
[2023-07-31 04:00] VITALS: BP 121/46; PULSE 61; RESP 18; TEMP 96.9; O2SAT 99
[2023-07-31] MEDS: BLOOD GLUCOSE MONITORING 1 DEV DEV FS SCH ×2 (06:35→11:30)
[2023-07-31] MEDS: INSULIN LISPRO SLIDING SCALE 100 UNITS/ML VIAL SUBQ PRN (06:40)
[2023-07-31 07:03] LABS: EOSINOPHILS # (AUTO) 0.1 K/uL (0-0.4); HEMATOCRIT 25.2 % (36-52); HEMOGLOBIN 8.8 g/dL (12.0-18.0); LYMPHOCYTES # (AUTO) 0.6 K/uL (2.0-11.5); MONOCYTES # (AUTO) 0.1 K/uL (0.8-1.0); RED BLOOD CELL COUNT(AUTO) 2.53 MIL/uL (4.20-6.10)
[2023-07-31 07:21] LABS: BASOPHILS % (AUTO) 0.2 % (0.0-2.0); EOSINOPHILS % (AUTO) 5.9 % (0.0-4.0); LYMPHOCYTES % (AUTO) 33.1 % (20.5-51.1); MEAN CORPUSCULAR HEMOGLOBIN 35 pg (27-31); MEAN CORPUSCULAR HGB CONC 35 g/dL (33-37); MEAN CORPUSCULAR VOLUME 99.6 fL (80-94); NEUTROPHILS # (AUTO) 1.1 K/uL (1.8-7.7); NEUTROPHILS % (AUTO) 54.8 % (42.2-75.2); PLATELET COUNT (AUTO) 37 K/uL (140-450); RED CELL DISTRIBUTION WIDTH 17.8 % (11.6-13.7)
[2023-07-31 07:22] LABS: ALANINE AMINOTRANSFERASE 12 U/L (12-78); ALKALINE PHOSPHATASE 62 U/L (50-136); ANION GAP 9.5 (8-16); ASPARTATE AMINOTRANSFERASE 20 U/L (15-37); CALCIUM 7.7 mg/dL (8.5-10.1); CARBON DIOXIDE 24.7 mmol/L (21-32); CHLORIDE 109 mmol/L (98-107); CREATININE 0.6 mg/dL (0.6-1.3); GLUCOSE 155 mg/dL (74-106); POTASSIUM 4.2 mmol/L (3.5-5.1); SODIUM SERUM 139 mmol/L (136-145); TOTAL BILIRUBIN 0.6 mg/dL (0.0-1.0); TOTAL PROTEIN, SERUM 5.6 g/dL (6.4-8.2); UREA NITROGEN, BLOOD 9 mg/dL (7-18)
[2023-07-31 07:28] LABS: WHITE BLOOD COUNT (AUTO) 1.9 K/uL (4.8-10.8)
[2023-07-31 08:00] VITALS: PULSE 61; RESP 18; TEMP 97.2; O2SAT 98
[2023-07-31] MEDS: ACETAMINOPHEN 325 MG TAB PO PRN (15:54)
[2023-07-31 16:25] VITALS: BP 121/46; PULSE 61; RESP 18; TEMP 97.2
== END 2023-07-31 17:25 | disposition short-term general hospital (02) | DRG 432 ==
LOC: MED 23:25 → MMU 07-28 05:42 → MTU 07-28 15:01
PROVIDERS: ADMIT Family Medicine; ATTEND Family Medicine
PROC: 30233N1 Transfusion of Nonautologous Red Blood Cells into Peripheral Vein, Percutaneous Approach (ICD-10-PCS; 2023-07-28)
PROC: 06L38CZ Occlusion of Esophageal Vein with Extraluminal Device, Via Natural or Artificial Opening Endoscopic (ICD-10-PCS; principal; 2023-07-29 15:15)
DX: K74.60 Unspecified cirrhosis of liver (principal); E43 Unspecified severe protein-calorie malnutrition; I85.11 Secondary esophageal varices with bleeding; D61.818 Other pancytopenia; Z68.1 Body mass index [BMI] 19.9 or less, adult; K76.6 Portal hypertension; K31.89 Other diseases of stomach and duodenum; E03.9 Hypothyroidism, unspecified; E11.51 Type 2 diabetes mellitus with diabetic peripheral angiopathy without gangrene; F03.A0 Unspecified dementia, mild, without behavioral disturbance, psychotic disturbance, mood disturbance, and anxiety; I10 Essential (primary) hypertension; I87.2 Venous insufficiency (chronic) (peripheral); E11.40 Type 2 diabetes mellitus with diabetic neuropathy, unspecified; I86.4 Gastric varices; N40.0 Benign prostatic hyperplasia without lower urinary tract symptoms; Z95.0 Presence of cardiac pacemaker
CPT/HCPCS: 36415; 36430; 80048; 80053; 80076; 82140; 82948; 83735; 84100; 85025; 85610; 85730; 86886; 86900; 86901; 86920; 87081; 99291; C9113; J0696; J1815; J2250; J2270; J2354; J3010; J3475; J7030; J7060; P9016

== ENCOUNTER 2023-09-24 12:46 | Inpatient (IN) | payer OTHER ==
[~2023-09-24] VITALS: Ht 167.6 cm; Wt 61.2 kg
[~2023-09-24 12:46] MED LIST changes: -ACET-6951 PO; -DOCU1TAB73 PO; +HUMSLIDE SUBQ; -IV rocephin IV; +LIDO15CR2 TP; -LISI5TAB18 PO; -MIRABULK PO; +OMEP40EC23 PO; -SITA100T8 PO; -TAMS0.4C96 PO; -[UNRECOGNIZED DRUG - CODE] TP
[2023-09-24 12:53] VITALS: BP 124/32; PULSE 68; RESP 18; TEMP 98.2; O2SAT 96
[2023-09-24] MEDS: NACL 0.9% 1,000 ML IV ONE (15:20)
[2023-09-24] MEDS: ONDANSETRON 4 MG/2 ML VIAL IVP ONE (15:23)
[2023-09-24] MEDS: FAMOTIDINE 20 MG/2 ML VIAL IVP ONE (15:25)
[2023-09-24] MEDS: MORPHINE SULFATE 4 MG/ML SYR IVP ONE (15:27)
[2023-09-24 15:38] LABS: BASOPHILS % (AUTO) 0.1 % (0.0-2.0); EOSINOPHILS % (AUTO) 0.3 % (0.0-4.0); HEMATOCRIT 26.9 % (36-52); HEMOGLOBIN 9.4 g/dL (12.0-18.0); LYMPHOCYTES # (AUTO) 0.3 K/uL (2.0-11.5); LYMPHOCYTES % (AUTO) 15.4 % (20.5-51.1); MEAN CORPUSCULAR HEMOGLOBIN 36 pg (27-31); MEAN CORPUSCULAR HGB CONC 35 g/dL (33-37); MEAN CORPUSCULAR VOLUME 102.1 fL (80-94); MONOCYTES # (AUTO) 0.2 K/uL (0.8-1.0); MONOCYTES % (AUTO) 7.5 % (1.7-9.3); NEUTROPHILS # (AUTO) 1.7 K/uL (1.8-7.7); NEUTROPHILS % (AUTO) 76.7 % (42.2-75.2); PLATELET COUNT (AUTO) 37 K/uL (140-450); RED BLOOD CELL COUNT(AUTO) 2.63 MIL/uL (4.20-6.10); RED CELL DISTRIBUTION WIDTH 16.7 % (11.6-13.7); WHITE BLOOD COUNT (AUTO) 2.2 K/uL (4.8-10.8)
[2023-09-24 15:53] LABS: ANION GAP 16.8 (8-16); CARBON DIOXIDE 23.6 mmol/L (21-32); CHLORIDE 104 mmol/L (98-107); CREATININE 0.7 mg/dL (0.6-1.3); GLUCOSE 151 mg/dL (74-106); INR 1.07 (0.8-1.2); PARTIAL THROMBOPLASTIN TIME 28.7 secs (22-35.6); POTASSIUM 4.4 mmol/L (3.5-5.1); PROTHROMBIN TIME 11.2 secs (10.8-13.4); SODIUM SERUM 140 mmol/L (136-145); UREA NITROGEN, BLOOD 26 mg/dL (7-18)
[2023-09-24 16:06] LABS: ALANINE AMINOTRANSFERASE 17 U/L (12-78); ALBUMIN 2.4 g/dL (3.4-5.0); ALKALINE PHOSPHATASE 127 U/L (50-136); ASPARTATE AMINOTRANSFERASE 32 U/L (15-37); BILIRUBIN,DIRECT 0.5 mg/dL (0.0-0.3); LIPASE 38 U/L (16-77); TOTAL BILIRUBIN 1.2 mg/dL (0.0-1.0); TOTAL PROTEIN, SERUM 7.5 g/dL (6.4-8.2)
[2023-09-24 17:00] LABS: APPEARANCE,URINE CLEAR (CLEAR); BILIRUBIN,URINE NEGATIVE (NEGATIVE); BLOOD, URINE TRACE-I (NEGATIVE); COLOR,URINE YELLOW (YELLOW); LEUKOCYTE ESTERASE ,URINE 3+ (NEGATIVE); NITRITE, URINE NEGATIVE (NEGATIVE); PH,URINE 8.5 (5.0-9.0); PROTEIN,URINE 1+ (NEGATIVE); UGLUCOSE NEGATIVE (NEGATIVE); UROBILINOGEN,URINE 0.2 EU/dL (0.2 - 1)
[2023-09-24 17:32] LABS: CALCIUM 8.6 mg/dL (8.5-10.1)
[2023-09-24] MEDS ORDERED: PIPERACILLIN/TAZOBACTAM 3.375 GM VIAL IV ONE (18:41)
[2023-09-24] MEDS: MORPHINE SULFATE 2 MG/ML SYR IVP ONE (18:46)
[2023-09-24] MEDS: PIPERACILLIN/TAZOBACTAM 3.375 GM in DEXTROSE 5% 50 ML IV ONE (18:52)
[2023-09-24] MEDS ORDERED: LORazepam 1 MG TAB PO PRN (18:55)
[2023-09-24] MEDS ORDERED: DEXTROSE 50% 50 ML SYR IVP PRN (18:55)
[2023-09-24] MEDS ORDERED: ZOLPIDEM 5 MG TAB PO PRN (18:55)
[2023-09-24] MEDS ORDERED: ONDANSETRON 4 MG/2 ML VIAL IVP PRN (18:55)
[2023-09-24 19:29] LABS: BACTERIA,URINE >30 (MANY) /HPF (None Seen); MUCUS,URINE None Seen /LPF (None Seen); RBC,URINE 0-5 /HPF (0-5); SQUAMOUS EPITHELIAL CELL,UR None Seen /LPF (0-3 (FEW))
[2023-09-24 19:30] LABS: TRICHOMONAS,URINE None Seen /HPF (None Seen); WHITE BLOOD CELL CASTS,URINE None Seen /LPF (None Seen); YEAST,URINE None Seen /HPF (None Seen)
[2023-09-24 19:34] LABS: LACTIC ACID 1.4 mmol/L (0.4-2.0)
[2023-09-24] MEDS: BLOOD GLUCOSE MONITORING 1 DEV DEV FS SCH (21:00)
[2023-09-24] MEDS: GABAPENTIN 300 MG CAP PO SCH (22:36)
[2023-09-24] MEDS: ACETAMINOPHEN 325 MG TAB PO PRN (22:37)
[2023-09-24] MEDS: carvediloL 3.125 MG TAB PO SCH (22:37)
[2023-09-24] MEDS: NACL 0.9% 1,000 ML IV SCH (22:38)
[2023-09-25] VITALS (7 sets, daily range): BP systolic 101–143; BP diastolic 42–65; PULSE 75–95; RESP 18–20; TEMP 97.6–101.4; O2SAT 95–96
[2023-09-25] MEDS: HYDROcodone/APAP 5/325 MG 1 TAB TAB PO PRN (00:53)
[2023-09-25] MEDS: PIPERACILLIN/TAZOBACTAM 3.375 GM in DEXTROSE 5% 50 ML IV SCH (00:59)
[2023-09-25] MEDS: PIPERACILLIN/TAZOBACTAM 3.375 GM VIAL IV ONE ×2 (00:59→07:19)
[2023-09-25 06:00] LABS: HEMATOCRIT 27.7 % (36-52); HEMOGLOBIN 9.6 g/dL (12.0-18.0); MEAN CORPUSCULAR HEMOGLOBIN 36 pg (27-31); MEAN CORPUSCULAR HGB CONC 35 g/dL (33-37); PLATELET COUNT (AUTO) 45 K/uL (140-450); RED BLOOD CELL COUNT(AUTO) 2.66 MIL/uL (4.20-6.10); RED CELL DISTRIBUTION WIDTH 16.5 % (11.6-13.7); WHITE BLOOD COUNT (AUTO) 3.8 K/uL (4.8-10.8)
[2023-09-25 06:28] LABS: INR 1.24 (0.8-1.2); PARTIAL THROMBOPLASTIN TIME 30.4 secs (22-35.6); PROTHROMBIN TIME 12.9 secs (10.8-13.4)
[2023-09-25 06:32] LABS: ALANINE AMINOTRANSFERASE 21 U/L (12-78); ALBUMIN 2.2 g/dL (3.4-5.0); ALKALINE PHOSPHATASE 101 U/L (50-136); ANION GAP 11.8 (8-16); ASPARTATE AMINOTRANSFERASE 34 U/L (15-37); CALCIUM 8.3 mg/dL (8.5-10.1); CARBON DIOXIDE 23.5 mmol/L (21-32); CHLORIDE 108 mmol/L (98-107); CREATININE 1.2 mg/dL (0.6-1.3); GLUCOSE 151 mg/dL (74-106); POTASSIUM 4.3 mmol/L (3.5-5.1); SODIUM SERUM 139 mmol/L (136-145); TOTAL BILIRUBIN 1.4 mg/dL (0.0-1.0); TOTAL PROTEIN, SERUM 6.4 g/dL (6.4-8.2); UREA NITROGEN, BLOOD 25 mg/dL (7-18)
[2023-09-25 07:03] LABS: LYMPHOCYTES % (MANUAL) 13 % (20-46); MONOCYTES % (MANUAL) 10 % (5-12)
[2023-09-25] MEDS: LEVOTHYROXINE 0.1 MG TAB PO SCH (07:21)
[2023-09-25] MEDS ORDERED: CLINICAL MONITORING MC PRN (08:20)
[2023-09-25] MEDS: PANTOPRAZOLE 40 MG INJ VIAL IVP ONE (08:51)
[2023-09-25] MEDS: DOCUSATE SODIUM 100 MG GELCAP PO SCH (08:51)
[2023-09-25] MEDS: FINASTERIDE 5 MG TAB PO SCH (08:52)
[2023-09-25] MEDS ORDERED: ceFAZolin 2,000 MG VIAL ONE (10:26)
[2023-09-25] MEDS ORDERED: LIDOCAINE/EPI 1% 1:100000 20 ML VIAL INJ ONE (10:26)
[2023-09-25] MEDS ORDERED: BUPIVACAINE-MPF 0.25% 30 ML VIAL INJ ONE (10:26)
[2023-09-25] MEDS: INSULIN LISPRO SLIDING SCALE 100 UNITS/ML VIAL SUBQ PRN (17:40)
[2023-09-26 05:22] LABS: BASOPHILS % (AUTO) 0.2 % (0.0-2.0); EOSINOPHILS % (AUTO) 0.7 % (0.0-4.0); HEMATOCRIT 24.1 % (36-52); HEMOGLOBIN 8.5 g/dL (12.0-18.0); LYMPHOCYTES # (AUTO) 0.6 K/uL (2.0-11.5); LYMPHOCYTES % (AUTO) 17.4 % (20.5-51.1); MEAN CORPUSCULAR HEMOGLOBIN 36 pg (27-31); MEAN CORPUSCULAR HGB CONC 35 g/dL (33-37); MEAN CORPUSCULAR VOLUME 102.7 fL (80-94); MONOCYTES # (AUTO) 0.3 K/uL (0.8-1.0); NEUTROPHILS # (AUTO) 2.3 K/uL (1.8-7.7); NEUTROPHILS % (AUTO) 71.7 % (42.2-75.2); PLATELET COUNT (AUTO) 37 K/uL (140-450); RED BLOOD CELL COUNT(AUTO) 2.35 MIL/uL (4.20-6.10); RED CELL DISTRIBUTION WIDTH 16.6 % (11.6-13.7); WHITE BLOOD COUNT (AUTO) 3.2 K/uL (4.8-10.8)
[2023-09-26 06:04] LABS: ALANINE AMINOTRANSFERASE 15 U/L (12-78); ALBUMIN 1.9 g/dL (3.4-5.0); ALKALINE PHOSPHATASE 97 U/L (50-136); ASPARTATE AMINOTRANSFERASE 35 U/L (15-37); CALCIUM 7.4 mg/dL (8.5-10.1); CARBON DIOXIDE 26.2 mmol/L (21-32); CHLORIDE 109 mmol/L (98-107); CREATININE 0.9 mg/dL (0.6-1.3); GLUCOSE 157 mg/dL (74-106); POTASSIUM 4.2 mmol/L (3.5-5.1); SODIUM SERUM 140 mmol/L (136-145); TOTAL BILIRUBIN 1.3 mg/dL (0.0-1.0); TOTAL PROTEIN, SERUM 6.2 g/dL (6.4-8.2); UREA NITROGEN, BLOOD 30 mg/dL (7-18)
[2023-09-26 08:00] VITALS: BP 103/68; PULSE 69; RESP 18; TEMP 98; O2SAT 98
[2023-09-26 12:00] VITALS: BP 113/72; PULSE 70; RESP 18; TEMP 98.3; O2SAT 98
[2023-09-26] MEDS ORDERED: GAUZE TP PRN (12:10)
[2023-09-26] MEDS: GAUZE TP SCH (13:00)
[2023-09-26] MEDS ORDERED: LEVO-481 PO (14:11)
[2023-09-26 16:00] VITALS: BP 115/78; PULSE 72; RESP 18; TEMP 98.4; O2SAT 99
== END 2023-09-26 20:04 | DRG 871 ==
LOC: MED 12:46 → MMU 18:51 → MTU 20:38
PROVIDERS: ADMIT Student in an Organized Health Care Education/Training Program; ATTEND Student in an Organized Health Care Education/Training Program
DX: A41.9 Sepsis, unspecified organism (principal); E43 Unspecified severe protein-calorie malnutrition; N39.0 Urinary tract infection, site not specified; K35.80 Unspecified acute appendicitis; N40.0 Benign prostatic hyperplasia without lower urinary tract symptoms; E11.9 Type 2 diabetes mellitus without complications; D64.9 Anemia, unspecified; Z68.21 Body mass index [BMI] 21.0-21.9, adult; Z79.4 Long term (current) use of insulin; Z79.899 Other long term (current) drug therapy
CPT/HCPCS: 36415; 71045; 80048; 80053; 80076; 81001; 82948; 83605; 83690; 84484; 85025; 85610; 85730; 87040; 87081; 87086; 93005; 96361; 96374; 96375; 99285; C9113; J1815; J2001; J2270; J2405; J2543; J3490; J7030; J7060; Q9967

== ENCOUNTER 2024-05-01 08:56 | Inpatient (IN) | payer OTHER ==
[~2024-05-01] VITALS: Ht 167.6 cm; Wt 53.5 kg
[~2024-05-01 08:56] MED LIST changes: -BACI-418 TP; +LEVO-481 PO; +NA P133E2 RC; -NA P135N RC
[2024-05-01 09:06] VITALS: BP 123/40; PULSE 102; RESP 24; TEMP 103.2; O2SAT 97
[2024-05-01 10:10] LABS: BASOPHILS % (AUTO) 0.2 % (0.0-2.0); HEMATOCRIT 25.9 % (36-52); HEMOGLOBIN 8.9 g/dL (12.0-18.0); LYMPHOCYTES # (AUTO) 0.2 K/uL (2.0-11.5); LYMPHOCYTES % (AUTO) 15.1 % (20.5-51.1); MEAN CORPUSCULAR HEMOGLOBIN 37 pg (27-31); MEAN CORPUSCULAR HGB CONC 35 g/dL (33-37); MEAN CORPUSCULAR VOLUME 106.4 fL (80-94); MONOCYTES # (AUTO) 0.1 K/uL (0.8-1.0); MONOCYTES % (AUTO) 8.8 % (1.7-9.3); NEUTROPHILS # (AUTO) 1.1 K/uL (1.8-7.7); NEUTROPHILS % (AUTO) 75.9 % (42.2-75.2); PLATELET COUNT (AUTO) 29 K/uL (140-450); RED BLOOD CELL COUNT(AUTO) 2.43 MIL/uL (4.20-6.10); RED CELL DISTRIBUTION WIDTH 14.1 % (11.6-13.7)
[2024-05-01 10:19] LABS: ANION GAP 10.8 (8-16); CARBON DIOXIDE 25.1 mmol/L (21-32); CHLORIDE 106 mmol/L (98-107); CREATININE 0.9 mg/dL (0.6-1.3); GLUCOSE 156 mg/dL (74-106); POTASSIUM 3.9 mmol/L (3.5-5.1); SODIUM SERUM 138 mmol/L (136-145); UREA NITROGEN, BLOOD 25 mg/dL (7-18)
[2024-05-01 10:23] LABS: WHITE BLOOD COUNT (AUTO) 1.5 K/uL (4.8-10.8)
[2024-05-01 10:29] LABS: LACTIC ACID 1.6 mmol/L (0.4-2.0)
[2024-05-01] MEDS: NACL 0.9% 1,000 ML IV ONE (10:30)
[2024-05-01 10:41] LABS: ALANINE AMINOTRANSFERASE 23 U/L (12-78); ALBUMIN 2.6 g/dL (3.4-5.0); ALKALINE PHOSPHATASE 132 U/L (50-136); ASPARTATE AMINOTRANSFERASE 38 U/L (15-37); BILIRUBIN,DIRECT 0.4 mg/dL (0.0-0.3); CREATINE KINASE, TOTAL 30 U/L (39-308); INR 1.11 (0.8-1.2); PARTIAL THROMBOPLASTIN TIME 26.5 secs (22-35.6); PROTHROMBIN TIME 11.6 secs (10.8-13.4); TOTAL BILIRUBIN 1.2 mg/dL (0.0-1.0); TOTAL PROTEIN, SERUM 6.2 g/dL (6.4-8.2)
[2024-05-01] MEDS: ACETAMINOPHEN 325 MG TAB PO ONE (11:13)
[2024-05-01 11:52] LABS: APPEARANCE,URINE HAZY (CLEAR); BLOOD, URINE 2+ (NEGATIVE); COLOR,URINE YELLOW (YELLOW); PROTEIN,URINE 1+ (NEGATIVE); UGLUCOSE NEGATIVE (NEGATIVE)
[2024-05-01 11:53] LABS: BILIRUBIN,URINE NEGATIVE (NEGATIVE); LEUKOCYTE ESTERASE ,URINE 2+ (NEGATIVE); NITRITE, URINE NEGATIVE (NEGATIVE); UROBILINOGEN,URINE 0.2 EU/dL (0.2 - 1)
[2024-05-01 11:55] LABS: WBC,URINE >25 (MANY) /HPF (0-5)
[2024-05-01 11:59] LABS: BACTERIA,URINE FEW /HPF (None Seen); SQUAMOUS EPITHELIAL CELL,UR 4-10 (MOD) /LPF (0-3 (FEW))
[2024-05-01 12:13] LABS: FLU A ANTIGEN negative (NEGATIVE); FLU B ANTIGEN NEGATIVE (NEGATIVE)
[2024-05-01] MEDS ORDERED: PIPERACILLIN/TAZOBACTAM 4.5 GM VIAL IV ONE (12:28)
[2024-05-01] MEDS: PIPERACILLIN/TAZOBACTAM 4.5 GM in DEXTROSE 5% 100 ML IV ONE (12:52)
[2024-05-01] MEDS ORDERED: GLYCERIN PEDIATRIC 1 SUPP RC PRN (16:35)
[2024-05-01] MEDS ORDERED: SODIUM PHOSPHATE 118 ML ENEM RC PRN (16:35)
[2024-05-01] MEDS ORDERED: ONDANSETRON 4 MG ODT PO PRN (16:35)
[2024-05-01] MEDS ORDERED: INSULIN LISPRO SLIDING SCALE 100 UNITS/ML VIAL SUBQ PRN (16:35)
[2024-05-01] MEDS ORDERED: MAG SULF 2000 MG/WATER PREMIX 50 ML IV PRN (16:40)
[2024-05-01] MEDS ORDERED: DEXTROSE 50% 50 ML SYR IVP PRN (16:40)
[2024-05-01] MEDS ORDERED: HYDROcodone/APAP 7.5/325 MG 1 TAB PO PRN (16:40)
[2024-05-01] MEDS ORDERED: POTASSIUM CHLORIDE 10 MEQ TABER PO PRN (16:40)
[2024-05-01 17:40] LABS: BASOPHILS % (AUTO) 0.2 % (0.0-2.0); HEMATOCRIT 25.2 % (36-52); HEMOGLOBIN 8.6 g/dL (12.0-18.0); LYMPHOCYTES # (AUTO) 0.5 K/uL (2.0-11.5); LYMPHOCYTES % (AUTO) 24.1 % (20.5-51.1); MEAN CORPUSCULAR HEMOGLOBIN 37 pg (27-31); MEAN CORPUSCULAR HGB CONC 34 g/dL (33-37); MEAN CORPUSCULAR VOLUME 106.6 fL (80-94); MONOCYTES # (AUTO) 0.1 K/uL (0.8-1.0); MONOCYTES % (AUTO) 7.1 % (1.7-9.3); NEUTROPHILS # (AUTO) 1.3 K/uL (1.8-7.7); NEUTROPHILS % (AUTO) 68.6 % (42.2-75.2); PLATELET COUNT (AUTO) 27 K/uL (140-450); RED BLOOD CELL COUNT(AUTO) 2.36 MIL/uL (4.20-6.10); RED CELL DISTRIBUTION WIDTH 13.7 % (11.6-13.7)
[2024-05-01] MEDS: LACTULOSE 20 GM/30 ML UDC PO SCH (17:41)
[2024-05-01] MEDS: NACL 0.9% 1,000 ML IV SCH (17:47)
[2024-05-01 18:19] LABS: AMYLASE 59 U/L (25-115); CHOL/HDL RATIO 2.3 (1-4.5); CHOLESTEROL 99 mg/dL (<200); FREE T4 (FREE THYROXINE) 2.07 ng/dL (0.76-1.46); HDL CHOLESTEROL 44 mg/dL (40-60); LDL (CALC) 47 mg/dL (60-100); LIPASE 36 U/L (16-77); MAGNESIUM 1.9 mg/dL (1.8-2.4); PHOSPHORUS 3.3 mg/dL (2.5-4.9); THYROID STIMULATING HORMONE < 0.01 uIU/mL (0.34-3.74); TRIGLYCERIDES 43 mg/dL (30-150)
[2024-05-01 18:20] LABS: WHITE BLOOD COUNT (AUTO) 1.9 K/uL (4.8-10.8)
[2024-05-01 18:44] LABS: INR 1.15 (0.8-1.2); PARTIAL THROMBOPLASTIN TIME 28.4 secs (22-35.6)
[2024-05-01 19:20] LABS: ANION GAP 11.5 (8-16); CARBON DIOXIDE 24.5 mmol/L (21-32); CHLORIDE 107 mmol/L (98-107); GLUCOSE 170 mg/dL (74-106); SODIUM SERUM 139 mmol/L (136-145); UREA NITROGEN, BLOOD 25 mg/dL (7-18)
[2024-05-01 19:40] LABS: AMPHETAMINE, URINE NEGATIVE ng/ml (NEG <=1000); BARBITURATE, URINE NEGATIVE ng/ml (NEG <=200); BENZODIAZEPINE, URINE NEGATIVE ng/mL (NEG <=200); CANNABINOID, URINE NEGATIVE ng/mL (NEG <=50); COCAINE, URINE NEGATIVE ng/mL (NEG <=300); OPIATE, URINE NEGATIVE ng/mL (NEG <=2000); PHENCYCLIDINE SCREEN,URINE NEGATIVE ng/mL (NEG <=25)
[2024-05-01 20:00] VITALS: BP 149/54; PULSE 74; PULSE 82; RESP 19; TEMP 99; O2SAT 96
[2024-05-01] MEDS: DOCUSATE SODIUM 100 MG GELCAP PO SCH (20:28)
[2024-05-01] MEDS: GABAPENTIN 300 MG CAP PO SCH (20:28)
[2024-05-01] MEDS: carvediloL 3.125 MG TAB PO SCH (20:29)
[2024-05-01] MEDS: ACETAMINOPHEN 325 MG TAB PO PRN (20:36)
[2024-05-01] MEDS: ONDANSETRON 4 MG/2 ML VIAL IVP PRN (20:37)
[2024-05-01] MEDS: BLOOD GLUCOSE MONITORING 1 DEV DEV FS SCH (21:00)
[2024-05-01] MEDS ORDERED: NON-FORMULARY ITEM (Omeprazole* (Prilosec*) 40 MG) PO SCH (21:00)
[2024-05-01] MEDS: INSULIN LISPRO SLIDING SCALE 100 UNITS/ML VIAL SUBQ PRN (21:02)
[2024-05-02] VITALS (8 sets, daily range): BP systolic 100–113; BP diastolic 32–60; PULSE 57–73; RESP 17–18; TEMP 98.5–99; O2SAT 65–98
[2024-05-02] MEDS ORDERED: Z-GUARD PASTE TP PRN (01:50)
[2024-05-02] MEDS: LEVOTHYROXINE 0.075 MG TAB PO SCH (05:36)
[2024-05-02 05:54] LABS: BASOPHILS % (AUTO) 0.3 % (0.0-2.0); EOSINOPHILS % (AUTO) 0.1 % (0.0-4.0); HEMATOCRIT 22.5 % (36-52); HEMOGLOBIN 7.9 g/dL (12.0-18.0); LYMPHOCYTES # (AUTO) 0.6 K/uL (2.0-11.5); MEAN CORPUSCULAR HEMOGLOBIN 37 pg (27-31); MEAN CORPUSCULAR HGB CONC 35 g/dL (33-37); MONOCYTES # (AUTO) 0.1 K/uL (0.8-1.0); MONOCYTES % (AUTO) 8.2 % (1.7-9.3); NEUTROPHILS # (AUTO) 0.8 K/uL (1.8-7.7); NEUTROPHILS % (AUTO) 54.4 % (42.2-75.2); PLATELET COUNT (AUTO) 27 K/uL (140-450); RED BLOOD CELL COUNT(AUTO) 2.12 MIL/uL (4.20-6.10)
[2024-05-02 06:19] LABS: WHITE BLOOD COUNT (AUTO) 1.5 K/uL (4.8-10.8)
[2024-05-02] MEDS ORDERED: LEVOTHYROXINE 0.1 MG TAB PO SCH (06:30)
[2024-05-02 07:02] LABS: ANION GAP 9.4 (8-16); CALCIUM 7.8 mg/dL (8.5-10.1); CARBON DIOXIDE 25.2 mmol/L (21-32); CHLORIDE 111 mmol/L (98-107); CREATININE 0.8 mg/dL (0.6-1.3); GLUCOSE 80 mg/dL (74-106); POTASSIUM 3.6 mmol/L (3.5-5.1); SODIUM SERUM 142 mmol/L (136-145); UREA NITROGEN, BLOOD 24 mg/dL (7-18)
[2024-05-02 07:04] LABS: MAGNESIUM 1.9 mg/dL (1.8-2.4); PHOSPHORUS 2.9 mg/dL (2.5-4.9)
[2024-05-02] MEDS: PANTOPRAZOLE 40 MG INJ VIAL IVP SCH (10:33)
[2024-05-02] MEDS: FERROUS GLUCONATE 324 MG TAB PO SCH (10:34)
[2024-05-02] MEDS: FINASTERIDE 5 MG TAB PO SCH (10:35)
[2024-05-02] MEDS ORDERED: FOAM DRESSING TP PRN (13:45)
[2024-05-02] MEDS ORDERED: NON ADHERENT DRESSING TP PRN (13:45)
[2024-05-02] MEDS: MEROPENEM 1,000 MG in NACL 0.9% 50 ML IV SCH (22:52)
[2024-05-03] VITALS (8 sets, daily range): BP systolic 108–124; BP diastolic 46–70; PULSE 55–67; RESP 17–19; TEMP 97.6–98.7; O2SAT 97–99
[2024-05-03 05:50] LABS: BASOPHILS % (AUTO) 0.1 % (0.0-2.0); EOSINOPHILS # (AUTO) 0.1 K/uL (0-0.4); EOSINOPHILS % (AUTO) 4.4 % (0.0-4.0); HEMATOCRIT 22.6 % (36-52); HEMOGLOBIN 7.8 g/dL (12.0-18.0); LYMPHOCYTES # (AUTO) 0.6 K/uL (2.0-11.5); MEAN CORPUSCULAR HEMOGLOBIN 37 pg (27-31); MEAN CORPUSCULAR HGB CONC 34 g/dL (33-37); MEAN CORPUSCULAR VOLUME 106.7 fL (80-94); MONOCYTES # (AUTO) 0.1 K/uL (0.8-1.0); MONOCYTES % (AUTO) 6.3 % (1.7-9.3); NEUTROPHILS # (AUTO) 0.5 K/uL (1.8-7.7); NEUTROPHILS % (AUTO) 41.2 % (42.2-75.2); PLATELET COUNT (AUTO) 27 K/uL (140-450); RED BLOOD CELL COUNT(AUTO) 2.12 MIL/uL (4.20-6.10); RED CELL DISTRIBUTION WIDTH 14.4 % (11.6-13.7)
[2024-05-03 05:56] LABS: WHITE BLOOD COUNT (AUTO) 1.3 K/uL (4.8-10.8)
[2024-05-03 06:02] LABS: ANION GAP 9.4 (8-16); CALCIUM 7.4 mg/dL (8.5-10.1); CARBON DIOXIDE 22.4 mmol/L (21-32); CHLORIDE 111 mmol/L (98-107); CREATININE 0.7 mg/dL (0.6-1.3); GLUCOSE 76 mg/dL (74-106); POTASSIUM 3.8 mmol/L (3.5-5.1); SODIUM SERUM 139 mmol/L (136-145); UREA NITROGEN, BLOOD 18 mg/dL (7-18)
[2024-05-03 06:28] LABS: MAGNESIUM 1.8 mg/dL (1.8-2.4); PHOSPHORUS 2.7 mg/dL (2.5-4.9)
[2024-05-03] MEDS ORDERED: Z-GUARD PASTE TP PRN ×2 (07:35)
[2024-05-03] MEDS: NON ADHERENT DRESSING TP SCH (13:00)
[2024-05-03] MEDS: FOAM DRESSING TP SCH (13:00)
[2024-05-03] MEDS: Z-GUARD PASTE TP SCH (13:00)
[2024-05-03] MEDS: FLUCONAZOLE 200 MG/NS PREMIX 100 ML IV SCH (22:02)
[2024-05-04] MEDS ORDERED: FLUCONAZOLE 200 MG/NS PREMIX 100 ML IV SCH (04:30)
[2024-05-04 05:13] LABS: EOSINOPHILS # (AUTO) 0.1 K/uL (0-0.4); EOSINOPHILS % (AUTO) 4.1 % (0.0-4.0); HEMATOCRIT 22.4 % (36-52); HEMOGLOBIN 7.6 g/dL (12.0-18.0); LYMPHOCYTES # (AUTO) 0.7 K/uL (2.0-11.5); LYMPHOCYTES % (AUTO) 51.8 % (20.5-51.1); MEAN CORPUSCULAR HEMOGLOBIN 36 pg (27-31); MEAN CORPUSCULAR HGB CONC 34 g/dL (33-37); MEAN CORPUSCULAR VOLUME 106.4 fL (80-94); MONOCYTES # (AUTO) 0.1 K/uL (0.8-1.0); MONOCYTES % (AUTO) 6.9 % (1.7-9.3); NEUTROPHILS # (AUTO) 0.5 K/uL (1.8-7.7); NEUTROPHILS % (AUTO) 37.2 % (42.2-75.2); PLATELET COUNT (AUTO) 28 K/uL (140-450); RED CELL DISTRIBUTION WIDTH 13.8 % (11.6-13.7)
[2024-05-04 05:23] LABS: ANION GAP 8.4 (8-16); CALCIUM 7.4 mg/dL (8.5-10.1); CARBON DIOXIDE 23.3 mmol/L (21-32); CHLORIDE 109 mmol/L (98-107); CREATININE 0.7 mg/dL (0.6-1.3); GLUCOSE 72 mg/dL (74-106); POTASSIUM 3.7 mmol/L (3.5-5.1); SODIUM SERUM 137 mmol/L (136-145); UREA NITROGEN, BLOOD 15 mg/dL (7-18)
[2024-05-04 05:32] LABS: MAGNESIUM 1.9 mg/dL (1.8-2.4); PHOSPHORUS 2.3 mg/dL (2.5-4.9)
[2024-05-04 05:33] LABS: WHITE BLOOD COUNT (AUTO) 1.3 K/uL (4.8-10.8)
[2024-05-04 05:37] LABS: FREE T4 (FREE THYROXINE) 1.49 ng/dL (0.76-1.46); THYROID STIMULATING HORMONE 0.01 uIU/mL (0.34-3.74)
[2024-05-04 08:00] VITALS: BP 116/55; PULSE 60; PULSE 70; RESP 18; TEMP 98.3; TEMP 98.6; O2SAT 97
[2024-05-04] MEDS ORDERED: LEVO-481 PO (14:18)
[2024-05-04] MEDS ORDERED: FLUC200T8 PO (14:20)
[2024-05-04 16:00] VITALS: BP 110/60; PULSE 65; RESP 18; TEMP 98.6; O2SAT 97
[2024-05-04 17:11] VITALS: BP 100/61; PULSE 65; RESP 18; TEMP 98.6
[2024-05-05 09:07] LABS: FOLIC ACID 9.9 ng/mL (>3.0)
== END 2024-05-04 20:20 | DRG 871 ==
LOC: MED 08:56 → MTU 14:19
DX: A41.9 Sepsis, unspecified organism (principal); E43 Unspecified severe protein-calorie malnutrition; G93.41 Metabolic encephalopathy; I21.A1 Myocardial infarction type 2; N39.0 Urinary tract infection, site not specified; D61.818 Other pancytopenia; Z68.1 Body mass index [BMI] 19.9 or less, adult; K76.82 Hepatic encephalopathy; K74.60 Unspecified cirrhosis of liver; F03.90 Unspecified dementia, unspecified severity, without behavioral disturbance, psychotic disturbance, mood disturbance, and anxiety; R13.10 Dysphagia, unspecified; E03.9 Hypothyroidism, unspecified; K21.9 Gastro-esophageal reflux disease without esophagitis; N40.0 Benign prostatic hyperplasia without lower urinary tract symptoms; E86.0 Dehydration; I50.9 Heart failure, unspecified; Z20.822 Contact with and (suspected) exposure to COVID-19; I11.0 Hypertensive heart disease with heart failure; D50.9 Iron deficiency anemia, unspecified; E11.40 Type 2 diabetes mellitus with diabetic neuropathy, unspecified; K59.00 Constipation, unspecified; B37.9 Candidiasis, unspecified; Z79.899 Other long term (current) drug therapy
CPT/HCPCS: 36415; 71045; 80048; 80076; 80305; 81001; 82140; 82150; 82550; 82607; 82728; 82746; 82948; 83036; 83540; 83605; 83690; 83735; 83880; 84100; 84439; 84443; 84484; 85025; 85045; 85610; 85730; 87040; 87081; 87086; 93005; 96365; 97110; 97163-GP; 97530; 99291; J0696; J1450; J1815; J2185; J2405; J2470; J2543; J7060